=== PATIENT | female | born 1960 | race Caucasian/White ===

== ENCOUNTER → 2019-05-26 08:52 | Outpatient (BNVA) | payer MEDICARE, MEDICAID, SELFPAY | PROVIDERS: Family Provider Family Medicine; PCP Family Medicine; Visit Provider Family Medicine | DX: E03.9 Hypothyroidism, unspecified (principal); Z13.6 Encounter for screening for cardiovascular disorders; H81.13 Benign paroxysmal vertigo, bilateral | CPT/HCPCS: 36415; 80053; 80061; 84443; 85025 ==

== ENCOUNTER → 2019-05-28 13:49 | Outpatient (BNVA) | payer MEDICARE, MEDICAID, SELFPAY | PROVIDERS: Family Provider Family Medicine; PCP Family Medicine; Visit Provider Anesthesiology | DX: G89.29 Other chronic pain (principal); M54.41 Lumbago with sciatica, right side; Z79.891 Long term (current) use of 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 | CPT/HCPCS: 99213; 99214 ==

== ENCOUNTER → 2019-07-17 12:55 | Outpatient (BNVA) | payer MEDICARE, MEDICAID, SELFPAY | PROVIDERS: Family Provider Family Medicine; PCP Family Medicine; Visit Provider Anesthesiology | DX: G89.29 Other chronic pain (principal); M54.41 Lumbago with sciatica, right side; M53.3 Sacrococcygeal disorders, not elsewhere classified; Z79.891 Long term (current) use of 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 | CPT/HCPCS: 99214 ==

== ENCOUNTER → 2019-07-21 15:42 | Outpatient (BNVA) | payer MEDICARE, MEDICAID, SELFPAY | PROVIDERS: Family Provider Family Medicine; PCP Family Medicine; Visit Provider Nurse Practitioner Psychiatric/Mental Health | DX: F31.75 Bipolar disorder, in partial remission, most recent episode depressed (principal); F60.3 Borderline personality disorder | CPT/HCPCS: 99214 ==

== ENCOUNTER 2019-07-29 13:35 | Outpatient (CLI) | payer MEDICARE, MEDICAID, SELFPAY ==
--- NOTE | 2019-07-29 13:51 | XR_ITS ---
WS: [id number] KNEE LEFT TECHNIQUE: 3 views of the left knee CLINICAL INFORMATION: knee pain COMPARISON: None. FINDINGS: Left knee is normal in appearance. No evidence of acute fracture dislocation. No significant effusion . Patella is normal. Mild soft tissue edema. XR/XR knee LT 3V* [id number] IMPRESSION: Mild soft tissue edema. Otherwise normal left knee.
--- NOTE | 2019-07-29 13:51 | XR_ITS ---
WS: [id number] KNEE RIGHT TECHNIQUE: 3 views of the right knee CLINICAL INFORMATION: knee pain COMPARISON: None. FINDINGS: Right knee is normal in appearance. No evidence of acute fracture dislocation. No significant effusio n. Patella is normal. XR/XR knee RT 3V* [id number] IMPRESSION: Normal right knee.
== END 2019-07-29 13:36 | disposition home or self-care (01) ==
LOC: RADWPI 13:39
PROVIDERS: Family Provider Family Medicine; PCP Family Medicine; Visit Provider Family Medicine
DX: M25.561 Pain in right knee (principal); M25.562 Pain in left knee; G89.29 Other chronic pain
CPT/HCPCS: 73562

== ENCOUNTER → 2019-10-02 14:20 | Outpatient (BNVA) | payer MEDICARE, MEDICAID, SELFPAY | PROVIDERS: Family Provider Family Medicine; PCP Family Medicine; Visit Provider Family Medicine | DX: K91.2 Postsurgical malabsorption, not elsewhere classified (principal) | CPT/HCPCS: 80053; 82306; 82607; 82728; 82746; 83735; 85025 ==

== ENCOUNTER → 2019-11-28 08:44 | Outpatient (BNVA) | payer MEDICARE, MEDICAID, SELFPAY | PROVIDERS: Family Provider Family Medicine; PCP Family Medicine; Visit Provider Anesthesiology | DX: G89.29 Other chronic pain (principal); M54.41 Lumbago with sciatica, right side; M54.42 Lumbago with sciatica, left side; M54.9 Dorsalgia, unspecified; M53.3 Sacrococcygeal disorders, not elsewhere classified; M25.561 Pain in right knee; M25.562 Pain in left knee; Z79.891 Long term (current) use of 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 | CPT/HCPCS: 99214 ==

== ENCOUNTER → 2019-12-09 07:47 | Outpatient (BNVA) | payer MEDICARE, MEDICAID, SELFPAY | PROVIDERS: Family Provider Family Medicine; PCP Family Medicine; Visit Provider Nurse Practitioner Psychiatric/Mental Health | DX: F31.75 Bipolar disorder, in partial remission, most recent episode depressed (principal); F60.3 Borderline personality disorder; F33.1 Major depressive disorder, recurrent, moderate | CPT/HCPCS: 99214 ==

== ENCOUNTER 2020-01-13 12:47 | Outpatient (CLI) | payer MEDICARE, MEDICAID, SELFPAY ==
--- NOTE | 2020-01-13 13:00 | XR_ITS ---
WS: [id number] RIGHT WRIST: 3 VIEW(S) TECHNIQUE: PA, oblique and lateral. HISTORY: right wrist pain COMPARISON: 07/01/2018 No acute fracture or dislocation. Very mild widening of the scapholunate interval. No joint space abnormality. No soft tissue swelling. XR/XR wrist RT min 3V* [id number] IMPRESSION: Minimal widening of the scapholunate interval but less than 4 mm.
== END 2020-01-13 12:48 | disposition home or self-care (01) ==
LOC: RADWPI 12:54
PROVIDERS: Family Provider Family Medicine; PCP Family Medicine; Visit Provider Family Medicine
DX: M25.531 Pain in right wrist (principal)
CPT/HCPCS: 73110

== ENCOUNTER → 2020-01-19 11:03 | Outpatient (BNVA) | payer MEDICARE, MEDICAID, SELFPAY | PROVIDERS: Family Provider Family Medicine; PCP Family Medicine; Visit Provider Family Medicine | DX: E03.9 Hypothyroidism, unspecified (principal); M25.531 Pain in right wrist; M25.532 Pain in left wrist; Z68.34 Body mass index [BMI] 34.0-34.9, adult; F17.211 Nicotine dependence, cigarettes, in remission | CPT/HCPCS: 84443 ==

== ENCOUNTER → 2020-01-29 07:58 | Outpatient (BNVA) | payer MEDICARE, MEDICAID, SELFPAY | PROVIDERS: Family Provider Family Medicine; PCP Family Medicine; Visit Provider Nurse Practitioner Psychiatric/Mental Health | DX: F31.75 Bipolar disorder, in partial remission, most recent episode depressed (principal); Z63.4 Disappearance and death of family member; F60.3 Borderline personality disorder | CPT/HCPCS: 99214 ==

== ENCOUNTER 2020-02-03 14:29 | Outpatient (RCR) | payer MEDICARE, MEDICAID, SELFPAY | END 2020-02-18 23:59 | disposition home or self-care (01) | LOC: SPT 14:29 | PROVIDERS: PCP Family Medicine; Referring Provider Family Medicine; Visit Provider Family Medicine | DX: G89.29 Other chronic pain (principal); M54.41 Lumbago with sciatica, right side; M54.9 Dorsalgia, unspecified; M53.3 Sacrococcygeal disorders, not elsewhere classified; Z79.891 Long term (current) use of 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 | CPT/HCPCS: 97161; 99213; 99214 ==

== ENCOUNTER → 2020-02-26 08:38 | Outpatient (BNVA) | payer MEDICARE, MEDICAID, SELFPAY | PROVIDERS: Family Provider Family Medicine; PCP Family Medicine; Visit Provider Nurse Practitioner Psychiatric/Mental Health | DX: F31.75 Bipolar disorder, in partial remission, most recent episode depressed (principal); Z63.4 Disappearance and death of family member; F60.3 Borderline personality disorder | CPT/HCPCS: 99214 ==

== ENCOUNTER → 2020-03-25 10:30 | Outpatient (BNVA) | payer MEDICARE, MEDICAID, SELFPAY | PROVIDERS: Family Provider Family Medicine; PCP Family Medicine; Visit Provider Nurse Practitioner Psychiatric/Mental Health | DX: Z79.899 Other long term (current) drug therapy (principal) | CPT/HCPCS: 80053; 80061; 82306; 83036 ==

== ENCOUNTER → 2020-03-26 08:14 | Outpatient (BNVA) | payer MEDICARE, MEDICAID, SELFPAY | PROVIDERS: Family Provider Family Medicine; PCP Family Medicine; Visit Provider Nurse Practitioner Psychiatric/Mental Health | DX: F31.75 Bipolar disorder, in partial remission, most recent episode depressed (principal); Z63.4 Disappearance and death of family member; F60.3 Borderline personality disorder | CPT/HCPCS: 99214 ==

== ENCOUNTER → 2020-03-30 08:48 | Outpatient (BNVA) | payer MEDICARE, MEDICAID, SELFPAY | PROVIDERS: Family Provider Family Medicine; PCP Family Medicine; Visit Provider Anesthesiology | DX: G89.29 Other chronic pain (principal); M54.41 Lumbago with sciatica, right side; M54.9 Dorsalgia, unspecified; Z79.891 Long term (current) use of 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 | CPT/HCPCS: 99213; 99214 ==

== ENCOUNTER → 2020-03-31 13:15 | Outpatient (BNVA) | payer MEDICARE, MEDICAID, SELFPAY | PROVIDERS: Family Provider Family Medicine; PCP Family Medicine; Visit Provider Family Medicine | DX: R30.0 Dysuria (principal) | CPT/HCPCS: 81000; 87077; 87086; 87184 ==

== ENCOUNTER → 2020-04-05 08:41 | Outpatient (BNVA) | payer MEDICARE, MEDICAID, SELFPAY | PROVIDERS: Family Provider Family Medicine; PCP Family Medicine; Referring Provider Family Medicine; Visit Provider Podiatrist Foot & Ankle Surgery | DX: M19.072 Primary osteoarthritis, left ankle and foot (principal); M19.071 Primary osteoarthritis, right ankle and foot; M77.8 Other enthesopathies, not elsewhere classified; M21.612 Bunion of left foot; M21.611 Bunion of right foot; M79.672 Pain in left foot; M79.671 Pain in right foot | CPT/HCPCS: 73630 ==

== ENCOUNTER 2020-04-28 15:02 | Emergency (ER) | payer MEDICARE, MEDICAID, SELFPAY ==
[2020-04-28 15:30] VITALS: BP 142/87; PULSE 91; RESP 16; TEMP 36.4; O2SAT 96; BMI 34.3
--- NOTE | 2020-04-28 15:38 | ED_ITS ---
HPI - Extremity Problem General: Chief complaint: Extremity Problem,Nontraumatic Stated complaint: SUSPECTS BLOOD CLOT Time Seen by Provider: 04/28/20 15:37 History of Present Illness: HPI Narrative: Patient presents with concerns for DVT. She has had a DVT in her leg in the past requiring anticoagulation, but does not currently take anticoagulation. She complains of an itchy, red area of the left brothers as well as a 3 cm circular area of ecchymosis on the right calf. No other 1 is particularly painful, but she states that her prior DVT started out with itchiness. She denies recent travel, trauma, surgery, hospitalization. She does not know whether she has factor V Leiden or protein C or S deficiency. She denies pain in the legs, interval increase in calf diameter, pain with walking, and has no other acute complaints. Review of Systems General: Reports: 10 or more systems reviewed and unremarkable except in HPI and below PFSH ED PFSH: Medical History (Updated 04/28/20 @ 15:56 by Wade Medley MD) Atrophic vaginitis Bereavement Loss of parents Bilateral low back pain with right-sided sciatica Bipolar disorder Bipolar disorder, in partial remission, most recent episode depressed Carpal tunnel syndrome, bilateral Chronic back pain Chronic sacroiliac pain Encounter for long-term use of 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 Genital herpes in women GERD (gastroesophageal reflux disease) Hypothyroidism Mixed incontinence Recurrent UTI Surgical History Bariatric surgery status H/O LEEP S/P dilatation and curettage age of 19 in [place] S/P gastric bypass [facility]. [id number] S/P hysterectomy Dr. Underwood-1997 ovaries remain Family History Father Diabetes Stroke Grandmother Cancer breast-ovarian Brother Diabetes Hypertension Mother Thyroid disease Social History (Updated 04/28/20 @ 15:36 by Emeterio Siegel RN) Smoking and tobacco status: former smoker Second hand smoke exposure: No Alcohol intake: current Alcohol intake frequency: holidays/special occasions only Substance/Drug Use: never Marital status: History of recent travel: No Physical Exam Const: COMMON NORMALS: no acute distress Extremity: OTHER: Bedside ultrasound was performed of bilateral legs. The left brothers is mildly erythematous, but it is not warm or tender. Ultrasound does not show cobblestoning indicative of cellulitis nor does it show any noncompressible veins. Bedside ultrasound of the right calf similarly shows no evidence of DVT. All veins are compressible with no increase in pain. EXTREMITY IMAGE (BACK): 1. 2 cm diameter area of ecchymosis with no underlying redness or tenderness. Course Vital Signs: Vital signs: Vital Signs Temperature 97.5 F L 04/28/20 15:30 Pulse Rate 83 04/28/20 15:55 Respiratory Rate 16 04/28/20 15:55 Blood Pressure 132/78 04/28/20 15:55 Pulse Oximetry 93 04/28/20 15:55 MDM - Extremity (Nontraumatic) MDM Narrative: Medical decision making narrative: Patient remained hemodynamically stable throughout ED course. She is here because she is concerned about having DVTs. Bedside ultrasound shows no evidence of DVT and physical exam is not consistent with it either. She will be discharged home in stable condition with follow-up to primary care as needed. She knows she is welcome back in the emergency department should her symptoms get worse before outpatient follow-up. Discharge Plan Discharge Patient Disposition: Home Clinical Impression: Traumatic ecchymosis of right lower leg Qualifiers: Encounter type: initial encounter Qualified Code(s): S80.11XA - Contusion of right lower leg, initial encounter Condition: Stable Prescriptions: No Action hydrocodone-acetaminophen 5-325 mg tablet 1 tab PO QID PRN (Reason: pain) 30 Days Qty: 110 RF: 0 hydrocodone-acetaminophen 5-325 mg tablet 1 tab PO QID PRN (Reason: pain) 30 Days Qty: 110 RF: 0 carisoprodol [Soma] 350 mg tablet 350 mg PO TID PRN (Reason: muscle pain) 30 Days Qty: 90 RF: 0 cyclobenzaprine 10 mg tablet 10 mg PO TID 30 Days Qty: 90 RF: 1 (DME) Sole Supports See Rx Instructions .ROUTE .MEDSUPPLY Qty: 1 RF: 0 triamcinolone acetonide [Kenalog] 40 mg/mL suspension 40 mg INTRA-MONAE ONCE Qty: 1 RF: 0 bupivacaine (PF) 0.25 % (2.5 mg/mL) solution 10 ml Infiltration ONCE Qty: 10 RF: 0 lidocaine (PF) 10 mg/mL (1 %) solution 10 mg SUBCUT ONCE Qty: 10 RF: 0 lithium carbonate 300 mg capsule 300 mg PO BID Qty: 60 RF: 3 lamotrigine [Lamictal] 200 mg tablet 200 mg PO DAILY Qty: 30 RF: 4 sertraline [Zoloft] 100 mg tablet 100 mg PO .morning Qty: 30 RF: 4 trazodone 100 mg tablet 200 mg PO .QHS PRN (Reason: sleep) Qty: 60 RF: 4 ziprasidone HCl [Geodon] 20 mg capsule 20 mg PO BID Qty: 60 RF: 3 pantoprazole 40 mg tablet,delayed release (DR/EC) 40 mg PO ONCE Qty: 90 RF: 1 ciprofloxacin HCl 250 mg tablet 250 mg PO BID Qty: 10 RF: 0 levothyroxine [Synthroid] 25 mcg tablet 25 mcg PO ONCE Qty: 90 RF: 1 cholecalciferol (vitamin D3) 1,250 mcg (50,000 unit) capsule 50,000 unit PO .once weekly Qty: 12 RF: 0 azelastine 137 mcg (0.1 %) aerosol,spray 1 spray intranasal BID Qty: 30 RF: 1 acyclovir 400 mg tablet 400 mg PO BID Qty: 28 RF: 0 Discharge Orders: Discharge ED (Routine); Ordered 04/28/20 Ordered By: Wade Medley Referrals: Jennifer Winston DO [Primary Care Provider] - 7-10 days (as needed) Discharge Diet: Usual diet Discharge Activity: Resume usual activity Activity Restrictions/Additional Instructions: Ultrasound of your legs did not show evidence of DVT. The bruise on your right calf appears to be isolated. The rash on your left brothers should go away with time it does not appear to be infectious. Coding Level of Care Code ED Locomotive Engineer Electric for Shaka Fwmarcelino Exam Problem Focused
[2020-04-28 15:55] VITALS: BP 132/78; PULSE 83; RESP 16; O2SAT 93
[2020-04-28 16:39] VITALS: BP 143/90; PULSE 90; RESP 18; TEMP 36.6; O2SAT 96
== END 2020-04-28 16:40 | disposition home or self-care (01) ==
PROVIDERS: Emergency Provider Student in an Organized Health Care Education/Training Program; PCP Family Medicine
DX: S80.11XA Contusion of right lower leg, initial encounter (principal); Z87.891 Personal history of nicotine dependence; X58.XXXA Exposure to other specified factors, initial encounter
CPT/HCPCS: 12345; 99281

== ENCOUNTER 2020-05-22 00:52 | Emergency (ER) | payer MEDICARE, MEDICAID, SELFPAY ==
[2020-05-22 00:57] VITALS: BP 148/91; PULSE 82; RESP 18; TEMP 36.6; O2SAT 95; BMI 34.3
--- NOTE | 2020-05-22 01:05 | ED_ITS ---
HPI - Back Pain/Injury General: Chief Complaint: Back Pain/Injury Stated Complaint: muscle spasm from lower back up to neck Time Seen by Provider: 05/22/20 01:05 Source: patient Mode of arrival: ambulatory Limitations: no limitations History of Present Illness: HPI Narrative: Patient comes in tonight with right side low back pain radiating down to his thigh. Patient appears well. Patient appears no acute distress. Patient states that she woke up with the discomfort has persisted throughout the day even with her use of her home medication. Patient appears well. Patient appears in no acute distress. Patient denies any fever, loss of bowel or bladder control. Review of Systems General: Reports: 10 or more systems reviewed and unremarkable except in HPI and below Musc: Reports: back pain PFSH ED PFSH: Medical History (Updated 05/22/20 @ 01:11 by CEDRICK Knox) Atrophic vaginitis Bereavement Loss of parents Bilateral low back pain with right-sided sciatica Bipolar disorder Bipolar disorder, in partial remission, most recent episode depressed Carpal tunnel syndrome, bilateral Chronic back pain Chronic sacroiliac pain Encounter for long-term use of 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 Genital herpes in women GERD (gastroesophageal reflux disease) Hypothyroidism Mixed incontinence Recurrent UTI Surgical History Bariatric surgery status H/O LEEP S/P dilatation and curettage age of 19 in [place], [place] S/P gastric bypass [facility]. [id number] S/P hysterectomy Dr. Underwood-1997 ovaries remain Family History Father Diabetes Stroke Grandmother Cancer breast-ovarian Brother Diabetes Hypertension Mother Thyroid disease Social History (Updated 04/28/20 @ 15:36 by Emeterio Siegel RN) Smoking and tobacco status: former smoker Second hand smoke exposure: No Alcohol intake: current Alcohol intake frequency: holidays/special occasions only Marital status: History of recent travel: No Physical Exam Const: COMMON NORMALS: no acute distress and patient oriented x3 GENERAL APPEARANCE: cooperative HENMT: COMMON NORMALS: normocephalic and Normal external nose present HEAD & SCALP: normal to inspection and normocephalic NOSE: Normal external nose present MOUTH: Normal oral and palatal mucosa present Eye: GENERAL EYE: appearance normal, both eyes and all related structures Neck/C-Spine: COMMON NORMALS: full ROM Chest: COMMONS NORMALS: normal inspection of the chest Resp: COMMON NORMALS: normal respiratory effort EFFORT & INSPECTION: Yes able to speak in complete sentences Cardio: COMMON NORMALS: regular rate and regular rhythm RATE: regular rate RHYTHM: regular rhythm GI: COMMON NORMALS: non-tender Back/Pelvis: COMMON NORMALS: thoracic and lumbar spine normal to inspection (mild tenderness right side paraspinous muscle tenderness) and straight leg raise negative bilaterally Extremity: COMMON NORMALS: normal to inspection Neuro: COMMON NORMALS: patient oriented x3 and moves all extremities Psych: COMMON NORMALS: mental status grossly normal and cooperative Skin: COMMON NORMALS: no rashes or lesions noted GENERAL SKIN EXAM: no rashes or lesions noted Course Vital Signs: Vital signs: Vital Signs Temperature 97.8 F 05/22/20 00:57 Pulse Rate 82 05/22/20 00:57 Respiratory Rate 18 05/22/20 00:57 Blood Pressure 148/91 05/22/20 00:57 Pulse Oximetry 95 05/22/20 00:57 MDM - Back Pain/Injury MDM Narrative: Medical decision making narrative: Patient comes in today for complaints of right side lower back pain radiating down her leg on the right. Patient denies any bowel or bladder control loss. Patient denies any fever. Vital signs were normal. Reviewed exam with patient with recommendations for treatment and follow-up. Patient reported understanding agreed to plan. Differential Diagnosis: Differential diagnosis back pain/injury: Likely lumbar radiculopathy, sciatica, strain of lumbar region and thoracic back pain Discharge Plan Discharge Patient Disposition: Home Clinical Impression: Sciatica Qualifiers: Laterality: right Qualified Code(s): M54.31 - Sciatica, right side Condition: Stable Prescriptions: New cyclobenzaprine 10 mg tablet 10 mg PO TID PRN (Reason: muscle spasm) Qty: 15 RF: 0 No Action hydrocodone-acetaminophen 5-325 mg tablet 1 tab PO QID PRN (Reason: pain) 30 Days Qty: 110 RF: 0 hydrocodone-acetaminophen 5-325 mg tablet 1 tab PO QID PRN (Reason: pain) 30 Days Qty: 110 RF: 0 carisoprodol [Soma] 350 mg tablet 350 mg PO TID PRN (Reason: muscle pain) 30 Days Qty: 90 RF: 0 cyclobenzaprine 10 mg tablet 10 mg PO TID 30 Days Qty: 90 RF: 1 (DME) Sole Supports See Rx Instructions .ROUTE .MEDSUPPLY Qty: 1 RF: 0 triamcinolone acetonide [Kenalog] 40 mg/mL suspension 40 mg INTRA-MONAE ONCE Qty: 1 RF: 0 bupivacaine (PF) 0.25 % (2.5 mg/mL) solution 10 ml Infiltration ONCE Qty: 10 RF: 0 lidocaine (PF) 10 mg/mL (1 %) solution 10 mg SUBCUT ONCE Qty: 10 RF: 0 lithium carbonate 300 mg capsule 300 mg PO BID Qty: 60 RF: 3 lamotrigine [Lamictal] 200 mg tablet 200 mg PO DAILY Qty: 30 RF: 4 sertraline [Zoloft] 100 mg tablet 100 mg PO .morning Qty: 30 RF: 4 trazodone 100 mg tablet 200 mg PO .QHS PRN (Reason: sleep) Qty: 60 RF: 4 ziprasidone HCl [Geodon] 20 mg capsule 20 mg PO BID Qty: 60 RF: 3 pantoprazole 40 mg tablet,delayed release (DR/EC) 40 mg PO ONCE Qty: 90 RF: 1 ciprofloxacin HCl 250 mg tablet 250 mg PO BID Qty: 10 RF: 0 levothyroxine [Synthroid] 25 mcg tablet 25 mcg PO ONCE Qty: 90 RF: 1 cholecalciferol (vitamin D3) 1,250 mcg (50,000 unit) capsule 50,000 unit PO .once weekly Qty: 12 RF: 0 azelastine 137 mcg (0.1 %) aerosol,spray 1 spray intranasal BID Qty: 30 RF: 1 acyclovir 400 mg tablet 400 mg PO BID Qty: 28 RF: 0 Discharge Orders: Discharge ED (Routine); Ordered 05/22/20 Ordered By: Jonathan Prieto Referrals: Jennifer Winston DO [Primary Care Provider] - Discharge Diet: Usual diet Discharge Activity: Increase activity as tolerated Patient Instructions: Back Pain (ED) Activity Restrictions/Additional Instructions: Activity as tolerated. Gentle stretching and range of motion exercises. Drink plenty of water with medication. Follow-up with primary care for further treatment and evaluation. Return to the emergency room for new concerns. Coding Level of Care Code ED Teleprinter Installer for Teag Fwd Exam Comprehensive
--- NOTE | 2020-05-22 01:11 | PC.NURSE ---
Pt to vertical flow. Provider to see pt
[2020-05-22] MEDS: orphenadrine 30 mg/mL Inj 2 mL 60 MG IM (01:14)
[2020-05-22] MEDS: ketorolac 30 mg/mL INJ IM (01:14)
[2020-05-22 01:34] VITALS: BP 138/99; PULSE 86; RESP 18; O2SAT 95
== END 2020-05-22 01:35 | disposition home or self-care (01) ==
LOC: ER 01:25
PROVIDERS: Emergency Provider Nurse Practitioner Family; PCP Family Medicine
DX: M54.31 Sciatica, right side (principal); Z87.891 Personal history of nicotine dependence
CPT/HCPCS: 12345; 96372; 99281; 99283; J1885; J2360

== ENCOUNTER → 2020-05-26 08:40 | Outpatient (BNVA) | payer MEDICARE, MEDICAID, SELFPAY | PROVIDERS: PCP Family Medicine; Visit Provider Anesthesiology | DX: G89.29 Other chronic pain (principal); M54.41 Lumbago with sciatica, right side; M54.9 Dorsalgia, unspecified; Z79.891 Long term (current) use of 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 | CPT/HCPCS: 99213 ==

== ENCOUNTER → 2020-06-14 09:26 | Outpatient (BNVA) | payer MEDICARE, MEDICAID, SELFPAY | PROVIDERS: PCP Family Medicine; Visit Provider Nurse Practitioner Psychiatric/Mental Health | DX: F31.75 Bipolar disorder, in partial remission, most recent episode depressed (principal); Z63.4 Disappearance and death of family member; F60.3 Borderline personality disorder | CPT/HCPCS: 99214 ==

== ENCOUNTER 2020-06-29 15:45 | Outpatient (CLI) | payer MEDICARE, MEDICAID, SELFPAY | END 2020-06-29 15:46 | disposition home or self-care (01) | LOC: SPT 15:46 | PROVIDERS: PCP Family Medicine; Visit Provider Podiatrist Foot & Ankle Surgery | DX: Z46.89 Encounter for fitting and adjustment of other specified devices (principal); M25.561 Pain in right knee; M25.562 Pain in left knee; G89.29 Other chronic pain | CPT/HCPCS: L3030 ==

== ENCOUNTER → 2020-07-21 17:11 | Outpatient (BNVA) | payer MEDICARE, MEDICAID, SELFPAY | PROVIDERS: PCP Family Medicine; Visit Provider Family Medicine | DX: M25.561 Pain in right knee (principal); G89.29 Other chronic pain; E03.9 Hypothyroidism, unspecified; M25.562 Pain in left knee; H66.91 Otitis media, unspecified, right ear | CPT/HCPCS: 73562; 84443 ==

== ENCOUNTER → 2020-07-23 08:15 | Outpatient (BNVA) | payer MEDICARE, MEDICAID, SELFPAY | PROVIDERS: PCP Family Medicine; Visit Provider Anesthesiology | DX: G89.29 Other chronic pain (principal); M54.9 Dorsalgia, unspecified; M54.41 Lumbago with sciatica, right side; M25.561 Pain in right knee; M25.562 Pain in left knee; Z79.891 Long term (current) use of 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 | CPT/HCPCS: 99214 ==

== ENCOUNTER → 2020-08-12 09:49 | Outpatient (BNVA) | payer MEDICARE, MEDICAID, SELFPAY | PROVIDERS: PCP Family Medicine; Referring Provider Family Medicine; Visit Provider Orthopaedic Surgery | DX: M54.41 Lumbago with sciatica, right side (principal); M54.9 Dorsalgia, unspecified; G89.29 Other chronic pain | CPT/HCPCS: 72110 ==

== ENCOUNTER 2020-08-18 13:30 | Outpatient (CLI) | payer MEDICARE, MEDICAID, SELFPAY ==
--- NOTE | 2020-08-18 14:05 | MR_ITS ---
WS: [id number] MRI LUMBAR SPINE NONCONTRAST TECHNIQUE: Sagittal T1, T2 and STIR imaging. Axial T1 and T2 imaging. CLINICAL INFORMATION: LOW BACK PAIN COMPARISON: None. FINDINGS: Mild lumbar curve. No acute compression. No high-grade central canal stenosis. L1-L2: Normal. L2-L3: Mild annular bulging. Slight effacement of ventral thecal sac. Mild facet arthropathy. Mild bi lateral proximal foraminal narrowing. L3-L4: Mild annular bulging. Slight narrowing of the subarticular recess bilaterally. Mild right and no significant left foraminal narrowing. Small right proximal foraminal protrusion contacts the proxi mal exiting right L3 nerve root. Moderate facet arthropathy. L4-L5: Mild annular bulging with slight impingement traversing right greater than left L5 nerve roots in the subarticular recess. Recommend correlation for right L5 nerve root symptoms. Moderate facet a rthropathy. Eccentric disc bulging and osteophytic ridging results in mild bilateral foraminal narrow ing. L5-S1: Mild disc osteophytic ridging eccentric to the right. Mild right foraminal narrowing. Left for amen is patent. Spinal canal is patent. Mild facet arthropathy. Cervical and thoracic canal are patent on the shiatsu therapist imaging. MR/MR lumbar spine wo con* [id number] IMPRESSION: 1. Mild lumbar curve. No acute compression. No high-grade central canal stenos is. 2. Annular bulging L4-5 impinges the traversing right greater than left L5 ner ve roots in the subarticular recess bilaterally. Recommend correlation right L5 nerve root symptoms. 3. Small right proximal foraminal protrusion L3-4 contacts the proximal exitin g right L3 nerve root. Mild right L3-4 foraminal narrowing. 4. Mild bilateral L4-5 and right L5-S1 bony foraminal narrowing. 5. Moderate facet arthropathy L4-5.
== END 2020-08-18 13:31 | disposition home or self-care (01) ==
PROVIDERS: PCP Family Medicine; Visit Provider Anesthesiology
DX: M47.816 Spondylosis without myelopathy or radiculopathy, lumbar region (principal); M51.26 Other intervertebral disc displacement, lumbar region
CPT/HCPCS: 72148

== ENCOUNTER → 2020-09-22 08:04 | Outpatient (BNVA) | payer MEDICARE, MEDICAID, SELFPAY | PROVIDERS: PCP Family Medicine; Visit Provider Anesthesiology | DX: G89.29 Other chronic pain (principal); M54.41 Lumbago with sciatica, right side; M54.42 Lumbago with sciatica, left side; M43.16 Spondylolisthesis, lumbar region; M54.9 Dorsalgia, unspecified; M25.561 Pain in right knee; M25.562 Pain in left knee; Z79.891 Long term (current) use of 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 | CPT/HCPCS: 99214 ==

== ENCOUNTER 2020-09-23 15:29 | Outpatient (RCR) | payer MEDICARE, MEDICAID, SELFPAY | END 2020-10-18 23:59 | disposition home or self-care (01) | LOC: SPT 15:29 | PROVIDERS: PCP Family Medicine; Referring Provider Orthopaedic Surgery; Visit Provider Orthopaedic Surgery | DX: M43.10 Spondylolisthesis, site unspecified (principal); M17.0 Bilateral primary osteoarthritis of knee | CPT/HCPCS: 97110; 97162 ==

== ENCOUNTER 2020-10-05 13:43 | Outpatient (CLI) | payer MEDICARE, MEDICAID, SELFPAY ==
--- NOTE | 2020-10-05 13:54 | CT_ITS ---
WS: [id number] CT NECK WITH CONTRAST HISTORY: LOCALIZED SWELLING, MASS AND LUMP, NECK TECHNIQUE: Contiguous 5 mm axial images are performed through the neck with intravenous contrast. Sag ittal and coronal reformats are also submitted. All CT scans at [facility] use at least o ne of these dose optimization techniques: automated exposure control; mA and/or kV adjustment per pat ient size (includes targeted exams where dose is matched to clinical indication); or iterative recons truction. CONTRAST: CONTRAST: Omnipaque 300; 95 mL IV. DLP: 1121.48 mGycm COMPARISON: None available. Marker is placed over the RIGHT neck in the area interest. There is no underlying soft tissue mass or adenopathy. Sternocleidomastoid muscle and a prominent vein are present at this location. RIGHT level IIa lymph node is enlarged measuring 1.6 cm in short axis diameter. Indeterminate level I Ia lymph node on the LEFT measures 0.9 cm. No additional enlarged lymph nodes. There are additional c ervical chain lymph nodes which are subcentimeter. Subtle area of enhancement in the nasopharynx liam ures 6 mm. May be a small polyp. Otherwise the nasopharynx and oropharynx and hypopharynx are negativ e. Normal appearance of the vocal cords. Straightening of the normal cervical lordosis. Visualized portions of the skull base demonstrate no abnormalities. Orbits and globes are within norm al limits. No soft tissue masses. Visualized paranasal sinuses and mastoid air cells are normal. Lung apices are clear. CT/CT neck w con* [id number] IMPRESSION: 1. No abnormality noted along the RIGHT neck in the region of the palpable abn ormality. 2. Enlarged RIGHT level IIa lymph node and indeterminate lymph node on the LEF T at level IIa. PET/CT imaging may be necessary for further evaluation. 3. Subtle area of enhancement in the central nasopharynx measures 6 mm. Recomm end direct visualization.
[2020-10-05] MEDS: iohexol 300 mg/mL 100 mL Btl IV (14:36)
== END 2020-10-05 13:44 | disposition home or self-care (01) ==
PROVIDERS: PCP Family Medicine; Visit Provider Otolaryngology
DX: R22.1 Localized swelling, mass and lump, neck (principal)
CPT/HCPCS: 70491; Q9967

== ENCOUNTER → 2020-10-13 08:17 | Outpatient (BNVA) | payer MEDICARE, MEDICAID, SELFPAY | PROVIDERS: PCP Family Medicine; Visit Provider Nurse Practitioner Psychiatric/Mental Health | DX: F31.75 Bipolar disorder, in partial remission, most recent episode depressed (principal); F60.3 Borderline personality disorder; Z63.4 Disappearance and death of family member | CPT/HCPCS: 99214 ==

== ENCOUNTER 2020-10-27 14:58 | Outpatient (CLI) | payer MEDICARE, MEDICAID, SELFPAY ==
--- NOTE | 2020-10-27 | ECG_ITS ---
[facility] Test Date: 2020-10-27 Pat Name: Bobbi Fritz Department: Room: Gender: Female Environmental Director: : 1960 Requested By: Artie Arreola Order Number: [id number] Lynda MD: Estela Hess M.D. Measurements Intervals [place] Rate: 86 P: 23 VA: 133 QRS: -30 QRSD: 96 T: 16 QT: 337 QTc: 405 Interpretive Statements SINUS RHYTHM POSSIBLE LEFT ATRIAL ENLARGEMENT [-0.1mV P WAVE IN V1/V2] LOW QRS VOLTAGE IN PRECORDIAL LEADS [QRS DEFLECTION < 1.0 mV IN CHEST LEADS] POSSIBLE LEFT VENTRICULAR HYPERTROPHY POSSIBLE ANTERIOR MYOCARDIAL INFARCTION, PROBABLY OLD Compared to ECG 09/24/2015 06:29:53 Low QRS voltage now present Myocardial infarct finding now present Electronically Signed On 10-27-2020 16:31:42 CDT by Estela Hess M.D. [email or web address]
[2020-10-27 15:45] LABS: Basophils # 0.1 10^3/uL (0.0-0.1); Basophils % 1.3 %; Eosinophils # 0.1 10^3/uL (0.0-0.8); Eosinophils % 1.8 %; Hematocrit 39.8 % (37.0-47.0); Lymphocytes # 1.7 10^3/uL (0.8-4.8); Lymphocytes % 26.4 %; Mean Corpuscular HGB Conc 32.7 g/dL (30.0-36.0); Mean Corpuscular Hemoglobin 29.1 pg (28.0-34.0); Mean Corpuscular Volume 89.2 fL (81-99); Mean Platelet Volume 9.4 fL (7.4-10.4); Monocytes # 0.4 10^3/uL (0.2-0.9); Monocytes % 6.1 %; Neutrophils # 3.99 10^3/uL (1.8-7.7); Neutrophils % 63.9 %; Nucleated Red Blood Cells % 0 %; Platelet Count 317 10^3/cmm (130-400); Red Blood Count 4.46 10^6/uL (4.1-5.3); White Blood Count 6.2 10^3/uL (4.0-10.0)
[2020-10-27 15:59] LABS: Anion Gap 14.4 (5-19); Blood Urea Nitrogen 14 mg/dL (6-20); Calcium 8.7 mg/dL (8.5-10.5); Carbon Dioxide 26 mmol/L (22-29); Chloride 102 mmol/L (98-107); Glomerular Filtration Rate 73.7 mL/min (90-130); Glucose 89 mg/dL (65-115); Osmolality Calculated 286 mOsm/kg (285-295); Potassium 4.4 mmol/L (3.5-5.1); Sodium 138 mmol/L (136-145)
== END 2020-10-27 14:59 | disposition home or self-care (01) ==
LOC: RT 15:07
PROVIDERS: PCP Family Medicine; Visit Provider Specialist
DX: Z01.810 Encounter for preprocedural cardiovascular examination (principal); R22.1 Localized swelling, mass and lump, neck
CPT/HCPCS: 36415; 80048; 85025; 93005

== ENCOUNTER → 2020-11-02 09:22 | Outpatient (BNVA) | payer MEDICARE, MEDICAID, SELFPAY | PROVIDERS: PCP Family Medicine; Visit Provider Anesthesiology | DX: G89.29 Other chronic pain (principal); M54.41 Lumbago with sciatica, right side; M43.16 Spondylolisthesis, lumbar region; M54.9 Dorsalgia, unspecified; M25.561 Pain in right knee; M25.562 Pain in left knee; Z79.891 Long term (current) use of 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; Z87.891 Personal history of nicotine dependence | CPT/HCPCS: 99214 ==

== ENCOUNTER 2020-11-03 10:45 | Outpatient (CLI) | payer MEDICARE, MEDICAID, SELFPAY ==
[2020-11-08 11:01] LABS: Miscellaneous Test See Scanned Lab Rpt
== END 2020-11-03 10:46 | disposition home or self-care (01) ==
PROVIDERS: PCP Family Medicine; Visit Provider Specialist
DX: R22.1 Localized swelling, mass and lump, neck (principal)
CPT/HCPCS: 88271; 88275; 88305

== ENCOUNTER → 2020-11-12 07:43 | Outpatient (BNVA) | payer MEDICARE, MEDICAID, SELFPAY | PROVIDERS: PCP Family Medicine; Visit Provider Nurse Practitioner Psychiatric/Mental Health | DX: F31.75 Bipolar disorder, in partial remission, most recent episode depressed (principal); Z63.4 Disappearance and death of family member; F60.3 Borderline personality disorder; Z79.899 Other long term (current) drug therapy | CPT/HCPCS: 99214 ==

== ENCOUNTER → 2020-12-21 16:21 | Outpatient (BNVA) | payer MEDICARE, MEDICAID, SELFPAY | PROVIDERS: PCP Family Medicine; Visit Provider Nurse Practitioner Family | DX: Z20.822 Contact with and (suspected) exposure to COVID-19 (principal) | CPT/HCPCS: 87635 ==

== ENCOUNTER → 2020-12-22 10:01 | Outpatient (BNVA) | payer MEDICARE, MEDICAID, SELFPAY | PROVIDERS: PCP Family Medicine; Visit Provider Anesthesiology | DX: G89.29 Other chronic pain (principal); M54.41 Lumbago with sciatica, right side; M43.16 Spondylolisthesis, lumbar region; M25.561 Pain in right knee; M25.562 Pain in left knee; Z79.891 Long term (current) use of 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 | CPT/HCPCS: 99214 ==

== ENCOUNTER 2021-01-20 22:31 | Emergency (ER) | payer MEDICARE, MEDICAID, SELFPAY ==
[2021-01-20 22:37] VITALS: BP 139/93; PULSE 93; RESP 18; TEMP 36.7; O2SAT 94; BMI 34.3
[2021-01-20 22:42] VITALS: BP 153/100; O2SAT 95
--- NOTE | 2021-01-20 22:47 | CTR_ITS ---
PROCEDURE INFORMATION: Exam: CT Head Without Contrast Exam date and time: 01/20/2021 10:47 PM Age: 61 years old Clinical indication: Pain; Headache; Migraine; Additional info: MCHUGH TECHNIQUE: Imaging protocol: Computed tomography of the head without contrast. Radiation optimization: All CT scans at this facility use at least one of these dose optimization techniques: automated exposure control; mA and/or kV adjustment per patient size (includes targeted exams where dose is matched to clinical indication); or iterative reconstruction. COMPARISON: CT neck w con* [id number] 2020-10-05 14:33 RADIATION DOSE METRICS: Total DLP (mGy-cm): 718.43 FINDINGS: Brain: Normal. No hemorrhage. Unremarkable white matter. No mass effect. Cerebral ventricles: No ventriculomegaly. Paranasal sinuses: Visualized sinuses are unremarkable. No fluid levels. Mastoid air cells: Visualized mastoid air cells are well aerated. Bones/joints: Unremarkable. No acute fracture. Soft tissues: Unremarkable. CT/CT head wo con* [id number] IMPRESSION: No acute intracranial abnormality. Radiation Dose CTDIVOL = (mGy): DLP = 718.43 (mGy-cm)
--- NOTE | 2021-01-20 22:48 | ED_ITS ---
HPI - Headache General: Chief Complaint: Headache Stated Complaint: Migrane Time Seen by Provider: 01/20/21 22:43 Source: patient Mode of arrival: ambulatory Limitations: no limitations History of Present Illness: HPI Narrative: 61-year-old female states that she had a headache that started yesterday. States she woke up with it yesterday and its gradually worsened. States headaches now an 8 out of 10. States she had migraines years and years ago but has not had one recently. States this does feel like her previous migraines that she has photophobia and phonophobia. She has nausea as well. She denies any fever denies any neck pain. Denies any radiation of her pain. Denies any change in vision. Associated symptoms: Deny chest pain, fever(s), nausea, rash or vomiting Review of Systems Const: Denies: fever(s), chills, body aches or change in appetite Eyes: Denies: blurry vision or eye discomfort ENMT: Denies: throat pain or dental pain Card: Denies: chest pain Resp: Denies: dyspnea GI: Denies: abdominal pain, nausea, vomiting or diarrhea : Denies: dysuria Musc: Denies: neck pain or back pain Skin/Breast: Denies: rash Neuro: Reports: headache(s) Psych: Denies: depression Juancarlos/Lymph: Denies: easy bruising All/Imm: Denies: urticaria PFSH ED PFSH: Medical History Atrophic vaginitis Bereavement Loss of parents Bilateral low back pain with right-sided sciatica Bipolar disorder Bipolar disorder, in partial remission, most recent episode depressed Carpal tunnel syndrome, bilateral Chronic back pain Chronic sacroiliac pain Encounter for long-term use of 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 Genital herpes in women GERD (gastroesophageal reflux disease) Hypothyroidism Mixed incontinence Recurrent UTI Surgical History Bariatric surgery status H/O LEEP S/P dilatation and curettage age of 19 in [place] S/P gastric bypass [facility]. [id number] S/P hysterectomy Dr. Underwood-1997 ovaries remain Family History Father Diabetes Stroke Grandmother Cancer breast-ovarian Brother Diabetes Hypertension Mother Thyroid disease Social History Smoking and tobacco status: former smoker Second hand smoke exposure: No Alcohol intake: current Alcohol intake frequency: holidays/special occasions only Marital status: History of recent travel: No Physical Exam Const: COMMON NORMALS: no acute distress, patient oriented x3 and healthy appearing HENMT: COMMON NORMALS: normocephalic and atraumatic HEAD & SCALP: normocephalic and atraumatic Eye: COMMON NORMALS: Equal, round and reactive pupils present and EOMs intact bilaterally PUPIL: Yes Equal, round and reactive pupils present Neck/C-Spine: COMMON NORMALS: full ROM and supple Chest: COMMONS NORMALS: normal inspection of the chest and normal palpation of entire chest wall Resp: COMMON NORMALS: normal respiratory effort, No retractions, No use of accessory muscles and clear to auscultation bilaterally AUSCULTATION: clear to auscultation bilaterally Cardio: COMMON NORMALS: regular rate, regular rhythm and No murmurs present (Cardio) RATE: regular rate RHYTHM: regular rhythm GI: COMMON NORMALS: Normal to inspection, nondistended, normoactive bowel sounds present, Soft to palpation, non-tender and no masses PALPATION: Yes Soft to palpation Extremity: COMMON NORMALS: normal to inspection and full ROM Neuro: COMMON NORMALS: patient oriented x3, moves all extremities and no focal motor deficits Psych: COMMON NORMALS: mental status grossly normal, Normal thought process present and cooperative THOUGHT PROCESS: Normal thought process present Skin: COMMON NORMALS: no rashes or lesions noted and no wounds GENERAL SKIN EXAM: no rashes or lesions noted Course Vital Signs: Vital signs: Vital Signs Temperature 98.0 F 01/20/21 22:37 Pulse Rate 93 01/20/21 22:37 Respiratory Rate 18 01/20/21 22:37 Blood Pressure 139/93 01/20/21 22:37 Pulse Oximetry 94 01/20/21 22:37 MDM - Headache MDM Narrative: Medical decision making narrative: Patient presents with a headache is likely migraine headache. Headaches completely resolved after Reglan and Benadryl. Head CT shows no abnormalities. She has no signs of subarachnoid hemorrhage or meningitis. She is stable for discharge and is to follow-up with PCP and return if worsening. Discharge Plan Discharge Patient Disposition: Home Clinical Impression: Headache Condition: Stable Prescriptions: No Action (DME) Sole Supports See Rx Instructions .ROUTE .MEDSUPPLY Qty: 1 RF: 0 Claritin-D 12 Hour 5-120 mg tablet extended release 12 hr 1 tab PO Q12H PRN (Reason: allergy symptoms) Qty: 30 RF: 0 levothyroxine [Synthroid] 25 mcg tablet 25 mcg PO ONCE Qty: 90 RF: 1 pantoprazole 40 mg tablet,delayed release (DR/EC) 40 mg PO ONCE Qty: 90 RF: 1 ziprasidone HCl [Geodon] 20 mg capsule 20 mg PO BID Qty: 60 RF: 4 trazodone 100 mg tablet 200 mg PO .QHS PRN (Reason: sleep) Qty: 60 RF: 4 sertraline [Zoloft] 100 mg tablet 100 mg PO .morning Qty: 30 RF: 4 lamotrigine [Lamictal] 200 mg tablet 200 mg PO DAILY Qty: 30 RF: 4 hydrocodone-acetaminophen 5-325 mg tablet 1 tab PO QID PRN (Reason: pain) 30 Days Qty: 110 RF: 0 hydrocodone-acetaminophen 5-325 mg tablet 1 tab PO QID PRN (Reason: pain) 30 Days Qty: 110 RF: 0 cyclobenzaprine 10 mg tablet 10 mg PO TID 30 Days Qty: 90 RF: 0 lithium carbonate 300 mg capsule 300 mg PO BID Qty: 60 RF: 4 cholecalciferol (vitamin D3) 1,250 mcg (50,000 unit) capsule 50,000 unit PO .once weekly Qty: 12 RF: 0 azelastine 137 mcg (0.1 %) aerosol,spray 1 spray intranasal BID Qty: 30 RF: 1 Discharge Orders: Discharge ED (Routine); Ordered 01/21/21 Ordered By: Jane Broussard Referrals: Marnie Cardenas MD [Primary Care Provider] - 1-3 days Discharge Diet: Advance as tolerated Discharge Activity: Resume usual activity Patient Instructions: Acute Headache (ED) Coding Level of Care Code ED Director Of Employee Development for Chg Fwd Exam Comprehensive
[2021-01-20] MEDS: ketorolac 30 mg/mL INJ 15 MG IVP (23:00)
[2021-01-20] MEDS: diphenhydrAMINE 50 mg/mL SDV 1mL IVP (23:10)
[2021-01-20] MEDS: metoclopramide 5 mg/mL SDV 2 mL 10 MG IVP (23:12)
[2021-01-21] VITALS: BP 126/93; O2SAT 95
[2021-01-21 00:42] VITALS: BP 123/85; PULSE 84; RESP 18; O2SAT 97
[2021-01-21 00:47] VITALS: BP 123/85; RESP 18; O2SAT 97
== END 2021-01-21 00:40 | disposition home or self-care (01) ==
PROVIDERS: Emergency Provider Emergency Medicine; PCP Family Medicine
DX: R51.9 Headache, unspecified (principal); Z87.891 Personal history of nicotine dependence
CPT/HCPCS: 70450; 96374; 96375; 99283; J1200; J1885; J2765

== ENCOUNTER → 2021-02-01 07:32 | Outpatient (BNVA) | payer MEDICARE, MEDICAID, SELFPAY | PROVIDERS: PCP Family Medicine; Visit Provider Nurse Practitioner Psychiatric/Mental Health | DX: F31.75 Bipolar disorder, in partial remission, most recent episode depressed (principal); Z63.4 Disappearance and death of family member; F60.3 Borderline personality disorder; Z79.899 Other long term (current) drug therapy | CPT/HCPCS: 99214 ==

== ENCOUNTER → 2021-03-01 10:05 | Outpatient (BNVA) | payer MEDICARE, MEDICAID, SELFPAY | PROVIDERS: PCP Family Medicine; Visit Provider Anesthesiology | DX: G89.29 Other chronic pain (principal); M54.41 Lumbago with sciatica, right side; M43.16 Spondylolisthesis, lumbar region; M25.561 Pain in right knee; M25.562 Pain in left knee; Z79.891 Long term (current) use of 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 | CPT/HCPCS: 99213; 99214 ==

== ENCOUNTER → 2021-05-17 14:12 | Outpatient (BNVA) | payer MEDICARE, MEDICAID, SELFPAY | PROVIDERS: PCP Family Medicine; Visit Provider Nurse Practitioner Psychiatric/Mental Health | DX: Z79.899 Other long term (current) drug therapy (principal) | CPT/HCPCS: 80053; 80061; 80178; 83036 ==

== ENCOUNTER → 2021-06-15 09:51 | Outpatient (BNVA) | payer MEDICARE, MEDICAID, SELFPAY | PROVIDERS: PCP Family Medicine; Visit Provider Anesthesiology | DX: G89.29 Other chronic pain (principal); M25.561 Pain in right knee; M25.562 Pain in left knee; Z79.891 Long term (current) use of 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 | CPT/HCPCS: 99214 ==

== ENCOUNTER → 2021-06-20 11:28 | Outpatient (BNVA) | payer MEDICARE, MEDICAID, SELFPAY | PROVIDERS: PCP Family Medicine; Visit Provider Nurse Practitioner Family | DX: Z20.822 Contact with and (suspected) exposure to COVID-19 (principal); Z71.89 Other specified counseling | CPT/HCPCS: 87635 ==

== ENCOUNTER → 2021-06-30 15:31 | Outpatient (BNVA) | payer MEDICARE, MEDICAID, SELFPAY | PROVIDERS: PCP Family Medicine; Visit Provider Nurse Practitioner Psychiatric/Mental Health | DX: F31.75 Bipolar disorder, in partial remission, most recent episode depressed (principal); F60.3 Borderline personality disorder; Z63.4 Disappearance and death of family member | CPT/HCPCS: 84443; 99214 ==

== ENCOUNTER 2021-07-03 02:11 | Emergency (ER) | payer MEDICARE, MEDICAID, SELFPAY ==
[2021-07-03 02:29] VITALS: BP 152/98; PULSE 88; RESP 18; TEMP 36.6; O2SAT 95; BMI 34.3
--- NOTE | 2021-07-03 02:34 | W.ED.HA ---
Documented by User: CEDRICK Knox 07/04/21 18:42 HPI - Headache General: Chief Complaint: Headache Stated Complaint: migraine Time Seen by Provider: 07/03/21 02:34 History of Present Illness: 61-year-old female comes in today with complaints of headache starting at around 4:00 this afternoon. Patient has tried some Tylenol and ibuprofen at home with no relief. Patient reports that she has had recurrent headaches since having her Pfizer Covid vaccine. Patient does have chronic pain syndromes regarding her back and recurrent headaches. Patient also has a history of GERD, sinusitis, bipolar disorder, and hypothyroidism. Patient appears well. Patient reports no weakness or any significant differences from her prior headaches. Patient appears to be in mild to moderate pain. MD elicited complaint: migraine Pertinent past history: migraines Onset (ago): hour(s) Time: 16:00 Onset description: gradually Location: frontal Severity: moderate Quality & Timing: aching and dull Exacerbating factors: exertion and light Relieving factors: nothing Associated symptoms: Reports nausea; Deny fever(s) or malaise Review of Systems General: Reports: 10 or more systems reviewed and unremarkable except in HPI and below Const: Denies: fever(s) or malaise GI: Reports: nausea Neuro: Reports: headache(s) PFSH ED PFSH: Medical History Atrophic vaginitis Bereavement Loss of parents Bilateral low back pain with right-sided sciatica Bipolar disorder Bipolar disorder, in partial remission, most recent episode depressed Carpal tunnel syndrome, bilateral Chronic back pain Chronic sacroiliac pain Encounter for long-term use of 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 Genital herpes in women GERD (gastroesophageal reflux disease) Hypothyroidism Mixed incontinence Psychiatric care Recurrent UTI Surgical History Bariatric surgery status H/O LEEP S/P dilatation and curettage age of 19 in [place], [place] S/P gastric bypass [facility]. [id number] S/P hysterectomy Dr. Underwood-1997 ovaries remain Family History Father Diabetes Stroke Grandmother Cancer breast-ovarian Brother Diabetes Hypertension Mother Thyroid disease Social History Smoking and tobacco status: former smoker Second hand smoke exposure: No Alcohol intake: never Marital status: History of recent travel: No Physical Exam Const: COMMON NORMALS: alert HENMT: COMMON NORMALS: atraumatic HEAD & SCALP: atraumatic NOSE: Normal nares present Eye: COMMON NORMALS: EOMs intact bilaterally and conjunctivae normal CONJUNCTIVA: Yes conjunctivae normal Neck/C-Spine: COMMON NORMALS: full ROM and no meningeal signs Resp: COMMON NORMALS: normal respiratory effort and clear to auscultation bilaterally AUSCULTATION: clear to auscultation bilaterally Cardio: COMMON NORMALS: regular rate and regular rhythm RATE: regular rate RHYTHM: regular rhythm Extremity: COMMON NORMALS: normal to inspection Neuro: SENSORIUM/ORIENTATION: Yes alert MENINGEAL SIGNS: Yes no meningeal signs GAIT: Yes Normal gait present Psych: COMMON NORMALS: cooperative Skin: COMMON NORMALS: no rashes or lesions noted GENERAL SKIN EXAM: no rashes or lesions noted Course Vital Signs: Vital signs: Vital Signs Temperature 97.9 F 07/03/21 02:29 Pulse Rate 88 07/03/21 02:29 Respiratory Rate 18 07/03/21 02:29 Blood Pressure 152/98 07/03/21 02:29 Pulse Oximetry 95 07/03/21 02:29 MDM - Headache Medical Decision Making 61-year-old female comes in today with complaints of frontal headache. On exam patient appears well. Patient has some tenderness in the frontal and maxillary sinus area. Conjunctiva is normal. Naris are normal. Respirations are even lungs are clear to auscultation. Patient reports that this is similar to her previous headaches. No meningeal signs are noted. Vital signs are normal except for some mild elevation of blood pressure with a systolic reading of 152. Differential diagnosis includes sinusitis, headache, migraine headache. Believe patient probably has an acute headache we will treat with migraine cocktail ketorolac 15 mg, Reglan 10 mg, diphenhydramine 25 mg, and 8 mg of dexamethasone. Patient was also given 500 mL of saline. Patient was recommended to follow-up with primary care for further instructions and treatment plans. Discharge Plan Discharge Patient Disposition: Home Clinical Impression: Headache Condition: Stable Prescriptions: No Action (DME) Sole Supports See Rx Instructions .ROUTE .MEDSUPPLY Qty: 1 0RF Rx Instructions: As directed Claritin-D 12 Hour 5-120 mg tablet extended release 12 hr 1 tab PO Q12H PRN (Reason: allergy symptoms) Qty: 30 0RF levothyroxine [Synthroid] 25 mcg tablet 25 mcg PO ONCE Qty: 90 1RF hydrocodone-acetaminophen 5-325 mg tablet 1 tab PO QID PRN (Reason: pain) 30 Days Qty: 110 0RF Rx Instructions: fill on or after 06/16/21 hydrocodone-acetaminophen 5-325 mg tablet 1 tab PO QID PRN (Reason: pain) 30 Days Qty: 110 0RF Rx Instructions: fill on or after 07/16/21 ziprasidone HCl [Geodon] 20 mg capsule 20 mg PO BID Qty: 60 4RF Rx Instructions: Take one capsule in morning and evening with 500 javier meals trazodone 100 mg tablet 200 mg PO .QHS PRN (Reason: sleep) Qty: 60 4RF Rx Instructions: Take one to two tablets at bedtime as needed for sleep sertraline [Zoloft] 100 mg tablet 100 mg PO .morning Qty: 30 4RF Rx Instructions: Take one tablet by mouth every morning lithium carbonate 300 mg capsule 300 mg PO BID Qty: 60 4RF Rx Instructions: Take one capsule twice per day lamotrigine [Lamictal] 200 mg tablet 200 mg PO DAILY Qty: 30 4RF Rx Instructions: Take one tablet by mouth daily pantoprazole 40 mg tablet,delayed release (DR/EC) 40 mg PO ONCE Qty: 90 1RF cyclobenzaprine 10 mg tablet 10 mg PO TID 30 Days Qty: 90 1RF cholecalciferol (vitamin D3) 1,250 mcg (50,000 unit) capsule 50,000 unit PO .once weekly Qty: 12 0RF azelastine 137 mcg (0.1 %) aerosol,spray 1 spray intranasal BID Qty: 30 1RF Discharge Orders: Discharge ED (Routine); Ordered 07/03/21 Ordered By: Kendrick Fall Referrals: Marnie Cardenas MD [Primary Care Provider] - Discharge Diet: Usual diet Discharge Activity: Increase activity as tolerated Patient Instructions: Acute Headache (ED), Opioid Safety Activity Restrictions/Additional Instructions: Drink plenty of water. Continue with routine medications as directed. Follow-up with primary care for further instruction. Return to ER for new concerns. Coding Level of Care Code ED Floor Covering Printer Assistant for Chg Fwd Exam Comprehensive Documented by User: Kendrick Fall, 07/03/21 03:52 HPI - Headache General: Chief Complaint: Headache Stated Complaint: migraine Time Seen by Provider: 07/03/21 02:34 PFSH ED PFSH: Medical History Atrophic vaginitis Bereavement Loss of parents Bilateral low back pain with right-sided sciatica Bipolar disorder Bipolar disorder, in partial remission, most recent episode depressed Carpal tunnel syndrome, bilateral Chronic back pain Chronic sacroiliac pain Encounter for long-term use of 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 Genital herpes in women GERD (gastroesophageal reflux disease) Hypothyroidism Mixed incontinence Psychiatric care Recurrent UTI Surgical History Bariatric surgery status H/O LEEP S/P dilatation and curettage age of 19 in [place], [place] S/P gastric bypass [facility]. [id number] S/P hysterectomy Dr. Underwood-1998 ovaries remain Family History Father Diabetes Stroke Grandmother Cancer breast-ovarian Brother Diabetes Hypertension Mother Thyroid disease Social History Smoking and tobacco status: former smoker Second hand smoke exposure: No Alcohol intake: never Marital status: History of recent travel: No Course Vital Signs: Vital signs: Vital Signs Temperature 97.9 F 07/03/21 02:29 Pulse Rate 88 07/03/21 02:29 Respiratory Rate 18 07/03/21 02:29 Blood Pressure 152/98 07/03/21 02:29 Pulse Oximetry 95 07/03/21 02:29 MDM - Headache Medical Decision Making 61-year-old female comes in today with complaints of frontal headache. On exam patient appears well. Patient has some tenderness in the frontal and maxillary sinus area. Conjunctiva is normal. Naris are normal. Respirations are even lungs are clear to auscultation. Patient reports that this is similar to her previous headaches. No meningeal signs are noted. Vital signs are normal except for some mild elevation of blood pressure with a systolic reading of 152. Differential diagnosis includes sinusitis, headache, migraine headache. Believe patient probably has an acute headache we will treat with migraine cocktail ketorolac 15 mg, Reglan 10 mg, diphenhydramine 25 mg, and 8 mg of dexamethasone. Patient was also given 500 mL of saline. Patient was recommended to follow-up with primary care for further instructions and treatment plans. This patient was originally seen by CEDRICK Avelar.? I agree with his history, evaluation, and treatment. Discharge Plan Discharge Patient Disposition: Home Clinical Impression: Headache Condition: Stable Prescriptions: No Action (DME) Sole Supports See Rx Instructions .ROUTE .MEDSUPPLY Qty: 1 0RF Rx Instructions: As directed Claritin-D 12 Hour 5-120 mg tablet extended release 12 hr 1 tab PO Q12H PRN (Reason: allergy symptoms) Qty: 30 0RF levothyroxine [Synthroid] 25 mcg tablet 25 mcg PO ONCE Qty: 90 1RF hydrocodone-acetaminophen 5-325 mg tablet 1 tab PO QID PRN (Reason: pain) 30 Days Qty: 110 0RF Rx Instructions: fill on or after 06/16/21 hydrocodone-acetaminophen 5-325 mg tablet 1 tab PO QID PRN (Reason: pain) 30 Days Qty: 110 0RF Rx Instructions: fill on or after 07/16/21 ziprasidone HCl [Geodon] 20 mg capsule 20 mg PO BID Qty: 60 4RF Rx Instructions: Take one capsule in morning and evening with 500 javier meals trazodone 100 mg tablet 200 mg PO .QHS PRN (Reason: sleep) Qty: 60 4RF Rx Instructions: Take one to two tablets at bedtime as needed for sleep sertraline [Zoloft] 100 mg tablet 100 mg PO .morning Qty: 30 4RF Rx Instructions: Take one tablet by mouth every morning lithium carbonate 300 mg capsule 300 mg PO BID Qty: 60 4RF Rx Instructions: Take one capsule twice per day lamotrigine [Lamictal] 200 mg tablet 200 mg PO DAILY Qty: 30 4RF Rx Instructions: Take one tablet by mouth daily pantoprazole 40 mg tablet,delayed release (DR/EC) 40 mg PO ONCE Qty: 90 1RF cyclobenzaprine 10 mg tablet 10 mg PO TID 30 Days Qty: 90 1RF cholecalciferol (vitamin D3) 1,250 mcg (50,000 unit) capsule 50,000 unit PO .once weekly Qty: 12 0RF azelastine 137 mcg (0.1 %) aerosol,spray 1 spray intranasal BID Qty: 30 1RF Discharge Orders: Discharge ED (Routine); Ordered 07/03/21 Ordered By: Kendrick Fall Referrals: Marnie Cardenas MD [Primary Care Provider] - Discharge Diet: Usual diet Discharge Activity: Increase activity as tolerated Patient Instructions: Acute Headache (ED), Opioid Safety Activity Restrictions/Additional Instructions: Drink plenty of water. Continue with routine medications as directed. Follow-up with primary care for further instruction. Return to ER for new concerns. Coding Level of Care Code ED Floor Covering Printer Assistant for Teag Fwd Exam Comprehensive
[2021-07-03] MEDS: dexamethasone 4 mg/mL INJ 8 MG IVP (03:25)
[2021-07-03] MEDS: sodium chloride 0.9% 500 ML 999 ML IV (03:25)
[2021-07-03] MEDS: metoclopramide 5 mg/mL SDV 2 mL 10 MG IVP (03:25)
[2021-07-03] MEDS: ketorolac 30 mg/mL INJ 15 MG IVP (03:25)
[2021-07-03] MEDS: diphenhydrAMINE 50 mg/mL SDV 1mL 25 MG IVP (03:25)
== END 2021-07-03 04:48 | disposition home or self-care (01) ==
PROVIDERS: Emergency Provider Nurse Practitioner Family; PCP Family Medicine
DX: R51.9 Headache, unspecified (principal); Z87.891 Personal history of nicotine dependence
CPT/HCPCS: 96374; 96375; 99284; J1100; J1200; J1885; J2765; J7040

== ENCOUNTER 2021-08-20 02:25 | Emergency (ER) | payer MEDICARE, MEDICAID, SELFPAY ==
[2021-08-20 02:38] VITALS: BP 141/84; PULSE 77; RESP 18; TEMP 36.5; O2SAT 97; BMI 34.0
[2021-08-20 03:18] LABS: Basophils # 0.1 10^3/uL (0.0-0.1); Basophils % 0.8 %; Eosinophils # 0.1 10^3/uL (0.0-0.8); Eosinophils % 1.7 %; Hematocrit 42.8 % (37.0-47.0); Hemoglobin 13.5 g/dL (11.5-15.3); Lymphocytes # 1.8 10^3/uL (0.8-4.8); Lymphocytes % 22.3 %; Mean Corpuscular HGB Conc 31.5 g/dL (30.0-36.0); Mean Corpuscular Hemoglobin 28.1 pg (28.0-34.0); Mean Platelet Volume 10.3 fL (7.4-10.4); Monocytes # 0.5 10^3/uL (0.2-0.9); Monocytes % 5.9 %; Neutrophils # 5.68 10^3/uL (1.8-7.7); Neutrophils % 69.1 %; Nucleated Red Blood Cells % 0 %; Platelet Count 311 10^3/cmm (130-400); Red Blood Count 4.81 10^6/uL (4.1-5.3); Red Cell Distribution Width 13.6 % (12.1-15.1); White Blood Count 8.2 10^3/uL (4.0-10.0)
[2021-08-20 03:21] LABS: Add Urine Microscopic? YES; Bilirubin Urine Neg (Negative); Blood Urine 2+ (Negative); Glucose Urine UA Norm (Normal); Ketones Urine Negative (Negative); Leukocyte Esterase Urine 2+ (Negative); Nitrate Urine Negative (Negative); Protein Urine 1+ (Negative); Specific Gravity, Urine 1.015 (1.005-1.030); Urine Color Yellow (Yellow); Urobilinogen Urine Norm (Negative); pH Urine 5 (5-7)
[2021-08-20 03:31] LABS: Add Urine Culture? Yes; Bacteria Urine 4+ /hpf; RBC Urine >100 /hpf (0-2); Squamous Epithelial Cell Urine 0-4 /hpf (0-5); WBC Urine >100 /hpf (0-5)
[2021-08-20 03:40] LABS: Alanine Aminotransferase 7 U/L (0-33); Albumin Level 4.4 g/dL (3.5-5.2); Alkaline Phosphatase 170 IU/L (35-105); Anion Gap 13.3 (5-19); Aspartate Amino Transferase 13 U/L (0-32); Blood Urea Nitrogen 17 mg/dL (6-20); Calcium 9.6 mg/dL (8.5-10.5); Carbon Dioxide 24 mmol/L (22-29); Chloride 106 mmol/L (98-107); Glomerular Filtration Rate 56.7 mL/min (90-130); Glucose 112 mg/dL (65-115); Lipase 54 U/L (13-60); Osmolality Calculated 290 mOsm/kg (285-295); Potassium 4.3 mmol/L (3.5-5.1); Sodium 139 mmol/L (136-145); Total Bilirubin 0.3 mg/dL (0.15-1.2); Total Protein 6.4 g/dL (6.6-8.7)
--- NOTE | 2021-08-20 04:39 | CTR_ITS ---
PROCEDURE INFORMATION: Exam: CT Abdomen And Pelvis With Contrast Exam date and time: 08/20/2021 4:58 AM Age: 61 years old Clinical indication: Abdominal pain; Prior surgery; Surgery type: Gastric bypass. Hysterectomy. ; Patient HX: C/O periumbilical pain. TECHNIQUE: Imaging protocol: Computed tomography of the abdomen and pelvis with contrast. Radiation optimization: All CT scans at this facility use at least one of these dose optimization techniques: automated exposure control; mA and/or kV adjustment per patient size (includes targeted exams where dose is matched to clinical indication); or iterative reconstruction. Contrast material: OMNI 300; Contrast volume: 95 ml; Contrast route: INTRAVENOUS (IV); COMPARISON: CT abdomen pelvis w con* [id number] 12/07/2017 3:47 AM RADIATION DOSE METRICS: Total DLP (mGy-cm): 1666.52 FINDINGS: Diaphragm: There is a small hiatal hernia. Status post gastric sleeve procedure. Liver: Normal. No mass. Gallbladder and bile ducts: Normal. No calcified stones. No ductal dilation. Pancreas: Normal. No ductal dilation. Spleen: Normal. No splenomegaly. Adrenal glands: Normal. No mass. 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 The upper ureter is prominent without evidence of obstructing ureteral calculi or masses. Stomach and bowel: See Diaphragm finding. Appendix: The appendix is visualized and is normal in configuration. Intraperitoneal space: Unremarkable. No free air. No significant fluid collection. Vasculature: Unremarkable. No abdominal aortic aneurysm. Lymph nodes: Unremarkable. No enlarged lymph nodes. Urinary bladder: Unremarkable as visualized. Reproductive: Status post hysterectomy. Bones/joints: Unremarkable. No acute fracture. Soft tissues: Unremarkable. CT/CT abdomen pelvis w con* [id number] IMPRESSION: 1. There are no acute abdominal findings. 2. 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
[2021-08-20] MEDS: iohexol 300 mg/mL 100 mL Btl IV (04:56)
[2021-08-20] MEDS: ondansetron 2 mg/ML SDV 2 mL 4 MG IVP (05:20)
[2021-08-20] MEDS: ketorolac 30 mg/mL INJ 15 MG IVP (05:20)
[2021-08-20] MEDS: sodium chloride 0.9% 1,000 ML 999 ML IV (05:21)
[2021-08-20] MEDS: nitrofurantoin SR (BID) 100 mg Capsule PO (05:44)
[2021-08-20 06:11] VITALS: BP 151/67; PULSE 60; RESP 16; O2SAT 98
--- NOTE | 2021-08-21 04:21 | ED_ITS ---
HPI - Abdominal Pain General: Chief Complaint: Abdominal Pain Stated Complaint: severe stomach pain Time Seen by Provider: 08/20/21 02:54 Source: patient History of Present Illness: 61-year-old female presenting with abdominal pain and nausea worsening over the course of a week. Seems to worsen when she eats. No vomiting. No diarrhea. MD elicited complaint: abdominal pain Pertinent past history: other Onset (ago): day(s) Pain Consistency: constant Location: Diffuse Severity: moderate Quality: cramping and stabbing Radiation: none Migration to: no migration Exacerbating factors: eating and movement Relieving factors: nothing Associated Symptoms: Reports bloating, nausea and poor appetite; Denies change in stool character, coffee ground emesis, diarrhea, fever(s) and vomiting Review of Systems Const: Denies: fever(s) ENMT: Denies: throat pain Card: Denies: chest pain Resp: Denies: dyspnea GI: Reports: nausea and bloating; Denies: vomiting, coffee ground emesis, diarrhea or change in stool character PFS ED PFSH: Medical History Atrophic vaginitis Bereavement Loss of parents Bilateral low back pain with right-sided sciatica Bipolar disorder Bipolar disorder, in partial remission, most recent episode depressed Carpal tunnel syndrome, bilateral Chronic back pain Chronic sacroiliac pain Encounter for long-term use of 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 Genital herpes in women GERD (gastroesophageal reflux disease) Hypothyroidism Mixed incontinence Psychiatric care Recurrent UTI Surgical History Bariatric surgery status H/O LEEP S/P dilatation and curettage age of 19 in [place], [place] S/P gastric bypass [facility]. [id number] S/P hysterectomy Dr. Underwood-1997 ovaries remain Family History Father Diabetes Stroke Grandmother Cancer breast-ovarian Brother Diabetes Hypertension Mother Thyroid disease Social History Smoking and tobacco status: former smoker Second hand smoke exposure: No Alcohol intake: never Marital status: History of recent travel: No Physical Exam Const: COMMON NORMALS: no acute distress ORIENTATION/CONSCIOUSNESS: Yes awake, Yes oriented to person and Yes oriented to time HENMT: COMMON NORMALS: normocephalic, atraumatic and Normal external nose present HEAD & SCALP: normocephalic and atraumatic NOSE: Normal external nose present Eye: COMMON NORMALS: Equal, round and reactive pupils present and EOMs intact bilaterally PUPIL: Yes Equal, round and reactive pupils present Chest: COMMONS NORMALS: normal inspection of the chest Resp: COMMON NORMALS: normal respiratory effort, No use of accessory muscles and clear to auscultation bilaterally AUSCULTATION: clear to auscultation bilaterally Cardio: COMMON NORMALS: regular rate and regular rhythm RATE: regular rate RHYTHM: regular rhythm GI: COMMON NORMALS: Soft to palpation INSPECTION: Yes abdominal distension PALPATION: Yes Soft to palpation, No Firmness to palpation present (GI) and Yes Tenderness to palpation present (GI) Neuro: SENSORIUM/ORIENTATION: Yes oriented to person and Yes oriented to time Course Vital Signs: Vital signs: Vital Signs Temperature 97.7 F 08/20/21 02:38 Pulse Rate 60 08/20/21 06:11 Respiratory Rate 16 08/20/21 06:11 Blood Pressure 151/67 08/20/21 06:11 Pulse Oximetry 98 08/20/21 06:11 MDM - Abdominal Pain Medical Decision Making CBC normal. BMP essentially normal. Bilirubin is not elevated. Greater than 100 whites and 100 reds in her urine. Sample does not appear significantly contaminated. We will treat. CT of the belly shows no acute abdominal findings. No stone. No calculi. We will treat accordingly Lab Data : 08/20/21 03:12 08/20/21 03:12 Labs/Radiology: Radiology Impressions Abdomen/Pelvis CT 08/20/21 04:39 IMPRESSION: 1. There are no acute abdominal findings. 2. 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 Laboratory Results WBC 8.2 10^3/uL (4.0-10.0) 08/20/21 03:12 RBC 4.81 10^6/uL (4.1-5.3) 08/20/21 03:12 Hgb 13.5 g/dL (11.5-15.3) 08/20/21 03:12 Hct 42.8 % (37.0-47.0) 08/20/21 03:12 MCV 89.0 fl (81-99) 08/20/21 03:12 MCH 28.1 pg (28.0-34.0) 08/20/21 03:12 MCHC 31.5 g/dL (30.0-36.0) 08/20/21 03:12 RDW 13.6 % (12.1-15.1) 08/20/21 03:12 Plt Count 311 10^3/cmm (130-400) 08/20/21 03:12 MPV 10.3 fL (7.4-10.4) 08/20/21 03:12 Neut % (Auto) 69.1 % 08/20/21 03:12 Lymph % (Auto) 22.3 % 08/20/21 03:12 Granite % (Auto) 5.9 % 08/20/21 03:12 Eos % (Auto) 1.7 % 08/20/21 03:12 Baso % (Auto) 0.8 % 08/20/21 03:12 Neut # (Auto) 5.68 10^3/uL (1.8-7.7) 08/20/21 03:12 Lymph # (Auto) 1.8 10^3/uL (0.8-4.8) 08/20/21 03:12 Granite # (Auto) 0.5 10^3/uL (0.2-0.9) 08/20/21 03:12 Eos # (Auto) 0.1 10^3/uL (0.0-0.8) 08/20/21 03:12 Baso # (Auto) 0.1 10^3/uL (0.0-0.1) 08/20/21 03:12 Nucleated RBC % (auto) 0 % 08/20/21 03:12 Nucleated RBCs # 0.0 /100WBC 08/20/21 03:12 Sodium 139 mmol/L (136-145) 08/20/21 03:12 Potassium 4.3 mmol/L (3.5-5.1) 08/20/21 03:12 Chloride 106 mmol/L (98-107) 08/20/21 03:12 Carbon Dioxide 24 mmol/L (22-29) 08/20/21 03:12 Anion Gap 13.3 (5-19) 08/20/21 03:12 BUN 17 mg/dL (6-20) 08/20/21 03:12 Creatinine 1.0 mg/dL (0.5-0.9) H 08/20/21 03:12 GFR Calculation 56.7 mL/min (90-130) L 08/20/21 03:12 Glucose 112 mg/dL (65-115) 08/20/21 03:12 Calculated Osmolality 290 mOsm/kg (285-295) 08/20/21 03:12 Calcium 9.6 mg/dL (8.5-10.5) 08/20/21 03:12 Total Bilirubin 0.3 mg/dL (0.15-1.2) 08/20/21 03:12 AST 13 U/L (0-32) 08/20/21 03:12 ALT 7 U/L (0-33) 08/20/21 03:12 Alkaline Phosphatase 170 IU/L (35-105) H 08/20/21 03:12 Total Protein 6.4 g/dL (6.6-8.7) L 08/20/21 03:12 Albumin 4.4 g/dL (3.5-5.2) 08/20/21 03:12 Globulin 2.0 g/dL (1.3-4.6) 08/20/21 03:12 Lipase 54 U/L (13-60) 08/20/21 03:12 Urine Color Yellow (Yellow) 08/20/21 03:00 Urine Appearance Sl cloudy (CLEAR) A 08/20/21 03:00 Urine pH 5 (5-7) 08/20/21 03:00 Ur Specific [place] 1.015 (1.005-1.030) 08/20/21 03:00 Urine Protein 1+ (Negative) H 08/20/21 03:00 Urine Glucose (UA) Norm (Normal) 08/20/21 03:00 Urine Ketones Negative (Negative) 08/20/21 03:00 Urine Blood 2+ (Negative) H 08/20/21 03:00 Urine Nitrate Negative (Negative) 08/20/21 03:00 Urine Bilirubin Neg (Negative) 08/20/21 03:00 Urine Urobilinogen Norm mg/dL (Negative) 08/20/21 03:00 Ur Leukocyte Esterase 2+ (Negative) H 08/20/21 03:00 Urine RBC >100 /hpf (0-2) H 08/20/21 03:00 Urine WBC >100 /hpf (0-5) H 08/20/21 03:00 Ur Squamous Epith Cells 0-4 /hpf (0-5) H 08/20/21 03:00 Amorphous Sediment Not Reportable 08/20/21 03:00 Urine Bacteria 4+ /hpf (NONE) H 08/20/21 03:00 Discharge Plan Discharge Patient Disposition: Home Clinical Impression: Urinary tract infection Condition: Stable Prescriptions: New nitrofurantoin macrocrystal 100 mg capsule 100 mg PO BID 7 Days Qty: 14 0RF Rx Instructions: must administer with a meal/food ondansetron 4 mg film 4 mg PO DAILY PRN (Reason: nausea and vomiting) Qty: 10 0RF No Action (DME) Sole Supports See Rx Instructions .ROUTE .MEDSUPPLY Qty: 1 0RF Rx Instructions: As directed Claritin-D 12 Hour 5-120 mg tablet extended release 12 hr 1 tab PO Q12H PRN (Reason: allergy symptoms) Qty: 30 0RF hydrocodone-acetaminophen 5-325 mg tablet 1 tab PO QID PRN (Reason: pain) 30 Days Qty: 110 0RF Rx Instructions: fill on or after 07/16/21 cyclobenzaprine 10 mg tablet 10 mg PO TID 30 Days Qty: 90 1RF hydrocodone-acetaminophen 5-325 mg tablet 1 tab PO QID PRN (Reason: pain) 30 Days Qty: 110 0RF Rx Instructions: fill on or after 06/16/21 pantoprazole 40 mg tablet,delayed release (DR/EC) 40 mg PO ONCE Qty: 90 1RF ziprasidone HCl [Geodon] 20 mg capsule 20 mg PO BID Qty: 60 4RF Rx Instructions: Take one capsule in morning and evening with 500 javier meals trazodone 100 mg tablet 200 mg PO .QHS PRN (Reason: sleep) Qty: 60 4RF Rx Instructions: Take one to two tablets at bedtime as needed for sleep lithium carbonate 300 mg capsule 300 mg PO BID Qty: 60 4RF Rx Instructions: Take one capsule twice per day lamotrigine [Lamictal] 200 mg tablet 200 mg PO DAILY Qty: 30 4RF Rx Instructions: Take one tablet by mouth daily sertraline [Zoloft] 100 mg tablet 100 mg PO .morning Qty: 30 4RF Rx Instructions: Take one tablet by mouth every morning Discharge Orders: Discharge ED (Routine); Ordered 08/20/21 Ordered By: Kendrick Fall Referrals: Marnie Cardenas MD [Primary Care Provider] - 4-7 days Patient Instructions: Urinary Tract Infection in Women (ED) Activity Restrictions/Additional Instructions: Return for fever greater than 100, vomiting liquids or medications, worsening pain despite treatment, any other concerning symptoms. Take the nausea medication scheduled every 6 hours while awake for the first 24 hours, then as needed. 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
== END 2021-08-20 06:12 | disposition home or self-care (01) ==
PROVIDERS: Nurse Practitioner Family; Emergency Provider Emergency Medicine; PCP Family Medicine
DX: N39.0 Urinary tract infection, site not specified (principal); Z87.891 Personal history of nicotine dependence; Z87.440 Personal history of urinary (tract) infections
CPT/HCPCS: 74177; 80053; 81001; 83690; 85025; 87077; 87086; 87186; 96361; 96374; 96375; 99283; J1885; J2405; J7030; Q9967

== ENCOUNTER 2021-12-15 09:59 | Outpatient (CLI) | payer MEDICARE, MEDICAID, SELFPAY ==
--- NOTE | 2021-12-15 10:06 | MR_ITS ---
WS: [id number] MRI LUMBAR SPINE NONCONTRAST TECHNIQUE: Sagittal T1, T2 and STIR imaging. Axial T1 and T2 imaging. CLINICAL INFORMATION: SPONDYLOSIS OF LUMBAR REGION COMPARISON: MRI August 18, 2020 FINDINGS: Mild lumbar curve. No acute compression. No high-grade central canal stenosis. L1-L2: Mild facet arthropathy. Spinal canal and foramen are patent. L2-L3: Mild annular bulging. Moderate facet arthropathy. Mild bilateral foraminal narrowing RIGHT gre ater than LEFT. L3-L4: Mild annular bulging. Moderate facet arthropathy. Mild RIGHT greater than LEFT foraminal narro wing. Spinal canal is patent. L4-L5: LEFT eccentric disc osteophytic ridging. Slight contact of the exiting LEFT L4 nerve root. Mil d LEFT greater than RIGHT foraminal narrowing. Moderate facet arthropathy ligamentum flavum hypertrop hy. Slight narrowing of the subarticular recess bilaterally. L5-S1: Disc osteophytic ridging eccentric to the RIGHT. Mild RIGHT and no significant LEFT foraminal narrowing. Spinal canal is patent. Mild facet arthropathy. Visualized pelvic bony structures: Normal. Paravertebral soft tissues: Normal. Central canal stenosis L4-L5 slightly progressed compared to previous. No other significant interval changes. MR/MR lumbar spine wo con* [id number] IMPRESSION: 1. Mild lumbar curve. No acute compression. No high-grade central canal stenos is. 2. Mild central canal stenosis L4-L5 due to mild annular bulging with facet ar thropathy ligamentum flavum hypertrophy. Central canal stenosis slightly progre ssed compared to previous. 3. LEFT eccentric disc osteophytic ridging L4-L5 with contact of the exiting L EFT L4 nerve root. 4. Tiny RIGHT foraminal protrusion L2-L3 and RIGHT L3-L4 with encroachment on the exiting RIGHT L2 and L3 nerve roots respectively. 5. Mild RIGHT L5-S1 foraminal narrowing. 6. Moderate facet arthropathy worse at L4-L5.
== END 2021-12-15 10:00 | disposition home or self-care (01) ==
LOC: RAD 10:00
PROVIDERS: PCP Family Medicine; Visit Provider Anesthesiology
DX: M47.816 Spondylosis without myelopathy or radiculopathy, lumbar region (principal); M51.26 Other intervertebral disc displacement, lumbar region; M48.061 Spinal stenosis, lumbar region without neurogenic claudication
CPT/HCPCS: 72148

== ENCOUNTER 2021-12-23 10:21 | Outpatient (CLI) | payer MEDICARE, MEDICAID, SELFPAY ==
--- NOTE | 2021-12-23 10:26 | CT_ITS ---
WS: [id number] CT NECK WITH CONTRAST HISTORY: LOCALIZING Swelling, mass, LUMP, NECK TECHNIQUE: Contiguous 5 mm axial images are performed through the neck with intravenous contrast. Sag ittal and coronal reformats are also submitted. All CT scans at [facility] use at least one o f these dose optimization techniques: automated exposure control; mA and/or kV adjustment per patient size (includes targeted exams where dose is matched to clinical indication); or iterative reconstruc tion. CONTRAST: CONTRAST: Omnipaque 350; 95 mL IV. DLP: 213.40 mGy.cm COMPARISON: 10/05/2020 Nasopharynx, oropharynx, hypopharynx and larynx are unremarkable. No soft tissue masses or abnormal e nhancement. Torus tubarius and fossa of Rosenmuller and parapharyngeal fat are normal. Large low-attenuation mass noted along the RIGHT cervical chain most consistent with a large lymph no de which may be a cystic lymph node. This mass is at level IIa along the cervical chain. Mass begins along above the level of the hyoid bone and extends just lateral to the carotid arteries. This mass a buts the sternocleidomastoid muscle and interrupts the fat plane. Mass does extend below the level of the hyoid bone. Cystic mass measures 3.0 x 2.0 cm. A similar mass but smaller was noted in this loc ation on the prior study of 10/05/2020. There are smaller bilateral cervical chain lymph nodes. Thyroid gland and salivary glands are normally enhancing with no masses. Mild straightening of the normal cervical lordosis. Moderate degenerative disc disease at C5-6 and C6 -7. Visualized portions of the skull base demonstrate no abnormalities. Orbits and globes are within norm al limits. No soft tissue masses. Visualized paranasal sinuses and mastoid air cells are normal. Chronic emphysematous changes at the lung apices. CT/CT neck w con* [id number] IMPRESSION: 1. Well-circumscribed low-attenuation mass along the RIGHT cervical chain at l evel IIa. Mass measures 3.0 x 2.0 cm and may be a cystic or low-attenuation lym ph node. Similar lymph node was noted in this location on 10/05/2020. If this is the same lymph node it has increased in size. No additional adenopathy. Due to its increased size and low-attenuation malignancy is not evident excluded. 2. No additional adenopathy.
[2021-12-23] MEDS: iohexol 350 mg/mL 100 mL Btl IV (10:53)
== END 2021-12-23 10:22 | disposition home or self-care (01) ==
LOC: RAD 10:21
PROVIDERS: PCP Family Medicine; Visit Provider Specialist
DX: R22.1 Localized swelling, mass and lump, neck (principal)
CPT/HCPCS: 70491

== ENCOUNTER 2022-01-10 10:59 | Outpatient (CLI) | payer MEDICARE, MEDICAID, SELFPAY ==
--- NOTE | 2022-01-10 11:48 | ECG_ITS ---
[facility] Test Date: 2022-01-10 Pat Name: Bobbi Fritz Department: Room: Gender: Female Vessel Captain: : 1960 Requested By: Artie Arreola Order Number: [id number] Lynda MD: Herbie Jin M.D. Measurements Intervals [place] Rate: 65 P: -17 [place]: 147 QRS: -29 QRSD: 95 T: -10 QT: 367 QTc: 383 Interpretive Statements SINUS RHYTHM LOW QRS VOLTAGE IN PRECORDIAL LEADS [QRS DEFLECTION < 1.0 mV IN CHEST LEADS] MODERATE VOLTAGE CRITERIA FOR LVH, CONSIDER NORMAL VARIANT [MEETS CRITERIA IN ONE OF: R(aVL), S(V1), R(V5), R(V5/V6)+S(V1)] POSSIBLE ANTERIOR MYOCARDIAL INFARCTION , OF INDETERMINATE AGE [30 ms Q WAVE IN V3/V4, OR R < 0.2 mV IN V4] Compared to ECG 10/27/2020 15:13:20 No significant changes Electronically Signed On 01-10-2022 17:52:19 CDT by Herbie Jin M.D. [id number]
== END 2022-01-10 11:00 | disposition home or self-care (01) ==
LOC: RT 11:00
PROVIDERS: PCP Family Medicine; Visit Provider Specialist
DX: R22.1 Localized swelling, mass and lump, neck (principal)
CPT/HCPCS: 93005

== ENCOUNTER 2022-01-13 00:15 | Emergency (ER) | payer MEDICARE, MEDICAID, SELFPAY ==
[2022-01-13 00:27] VITALS: BP 119/74; PULSE 98; RESP 18; TEMP 36.5; O2SAT 98; BMI 31.8
--- NOTE | 2022-01-13 00:36 | CTR_ITS ---
PROCEDURE INFORMATION: Exam: CT Neck With Contrast Exam date and time: 01/13/2022 12:58 AM Age: 62 years old Clinical indication: Dysphagia / difficulty swallowing and mass, lump, or swelling in neck; Right; Prior surgery; Surgery type: Neck biopsy; Patient HX: Patient has known RT sided neck mass with negative bx. Results. Scheduled for surgery next week. Patients states feels like it is getting larger and is having some dysphagia. TECHNIQUE: Imaging protocol: Computed tomography of the neck with contrast. Radiation optimization: All CT scans at this facility use at least one of these dose optimization techniques: automated exposure control; mA and/or kV adjustment per patient size (includes targeted exams where dose is matched to clinical indication); or iterative reconstruction. Contrast material: OMNI 350; Contrast volume: 80 ml; Contrast route: INTRAVENOUS (IV); COMPARISON: CT neck w con* [id number] 12/23/2021 10:42 AM RADIATION DOSE METRICS: Total DLP (mGy-cm): 184.48 FINDINGS: Pharynx: Unremarkable. No significant tonsillar enlargement. Larynx: Unremarkable. Epiglottis is normal. Prevertebral and retropharyngeal spaces: Unremarkable. 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 Thyroid: Normal. No enlarged or calcified nodules. Lymph nodes: Unremarkable. No lymphadenopathy. Trachea: Visualized trachea is unremarkable. Lungs: Unremarkable as visualized. Bones/joints: Moderate to severe multilevel spine degenerative changes including degenerative disc disease, spondylosis and facet degenerative changes. Mild kyphosis which may be secondary to patient positioning and/or muscle spasm and/or multilevel degenerative change. Soft tissues: See Bones/joints finding. 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
--- NOTE | 2022-01-13 00:37 | W.ED.GENADLT ---
HPI - General Adult General: Chief complaint: General Medical Stated complaint: lump on Righ side of throat Time Seen by Provider: 01/13/22 00:34 Source: patient Mode of arrival: ambulatory Limitations: no limitations History of Present Illness: 62-year-old female states that she has had a neck mass states she feels like it is grown over the last 2 days and the right side she feels like 7 difficulty swallowing breathing here she is in no distress currently she has surgery to have it removed by Dr. Fletcher next week. Denies any fevers. Associated symptoms: Deny chest pain, dyspnea, headache(s), nausea, rash or vomiting Review of Systems Const: Denies: fever(s), chills, body aches or change in appetite Eyes: Denies: blurry vision or eye discomfort ENMT: Reports: odynophagia Card: Denies: chest pain Resp: Denies: dyspnea GI: Denies: abdominal pain, nausea, vomiting or diarrhea : Denies: dysuria Musc: Denies: neck pain or back pain Skin/Breast: Denies: rash Neuro: Denies: headache(s) Psych: Denies: depression Juancarlos/Lymph: Denies: easy bruising All/Imm: Denies: urticaria PFSH ED PFSH: Medical History Atrophic vaginitis Bereavement Loss of parents Bilateral low back pain with right-sided sciatica Bipolar disorder Bipolar disorder, in partial remission, most recent episode depressed Carpal tunnel syndrome, bilateral Chronic back pain Chronic sacroiliac pain Encounter for long-term use of 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 Genital herpes in women GERD (gastroesophageal reflux disease) Hypothyroidism Mixed incontinence Psychiatric care Recurrent UTI Surgical History Bariatric surgery status H/O LEEP S/P dilatation and curettage age of 19 in [place] S/P gastric bypass [facility]. [id number] S/P hysterectomy Dr. Underwood-1997 ovaries remain Family History Father Diabetes Stroke Grandmother Cancer breast-ovarian Brother Diabetes Hypertension Mother Thyroid disease Social History Smoking and tobacco status: former smoker Second hand smoke exposure: No Alcohol intake: never Marital status: History of recent travel: No Physical Exam Const: COMMON NORMALS: no acute distress, patient oriented x3 and healthy appearing HENMT: COMMON NORMALS: normocephalic and atraumatic HEAD & SCALP: normocephalic and atraumatic OTHER: No dyspnea or difficulty handling her secretions Eye: COMMON NORMALS: Equal, round and reactive pupils present and EOMs intact bilaterally PUPIL: Yes Equal, round and reactive pupils present Neck/C-Spine: COMMON NORMALS: full ROM and supple OTHER: Mass palpated to right side neck Chest: COMMONS NORMALS: normal inspection of the chest and normal palpation of entire chest wall Resp: COMMON NORMALS: normal respiratory effort, No retractions, No use of accessory muscles and clear to auscultation bilaterally AUSCULTATION: clear to auscultation bilaterally Cardio: COMMON NORMALS: regular rate, regular rhythm and No murmurs present (Cardio) RATE: regular rate RHYTHM: regular rhythm GI: COMMON NORMALS: Normal to inspection, nondistended, normoactive bowel sounds present, Soft to palpation, non-tender and no masses PALPATION: Yes Soft to palpation Extremity: COMMON NORMALS: normal to inspection and full ROM Neuro: COMMON NORMALS: patient oriented x3, moves all extremities and no focal motor deficits Psych: COMMON NORMALS: mental status grossly normal, Normal thought process present and cooperative THOUGHT PROCESS: Normal thought process present Skin: COMMON NORMALS: no rashes or lesions noted and no wounds GENERAL SKIN EXAM: no rashes or lesions noted Course Vital Signs: Vital signs: Vital Signs Temperature 97.7 F 01/13/22 00:27 Pulse Rate 98 01/13/22 00:27 Respiratory Rate 18 01/13/22 00:27 Blood Pressure 119/74 01/13/22 00:27 Pulse Oximetry 98 01/13/22 00:27 Oxygen Delivery Me thod 01/13/22 00:27 MDM - General Adult Medical Decision Making Patient presents here with neck mass she is concerned that was growing and causing issues with swallowing CT here shows no change she is in no distress she is stable for discharge she is to follow-up with ENT next week as scheduled. 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 Laboratory Results WBC 7.9 10^3/uL (4.0-10.0) 01/13/22 00:50 RBC 4.35 10^6/uL (4.1-5.3) 01/13/22 00:50 Hgb 12.6 g/dL (11.5-15.3) 01/13/22 00:50 Hct 38.7 % (37.0-47.0) 01/13/22 00:50 MCV 89.0 fl (81-99) 01/13/22 00:50 MCH 29.0 pg (28.0-34.0) 01/13/22 00:50 MCHC 32.6 g/dL (30.0-36.0) 01/13/22 00:50 RDW 13.5 % (12.1-15.1) 01/13/22 00:50 Plt Count 274 10^3/cmm (130-400) 01/13/22 00:50 MPV 9.9 fL (7.4-10.4) 01/13/22 00:50 Neut % (Auto) 55.6 % 01/13/22 00:50 Lymph % (Auto) 34.3 % 01/13/22 00:50 [place] % (Auto) 7.1 % 01/13/22 00:50 Eos % (Auto) 2.1 % 01/13/22 00:50 Baso % (Auto) 0.6 % 01/13/22 00:50 Neut # (Auto) 4.41 10^3/uL (1.8-7.7) 01/13/22 00:50 Lymph # (Auto) 2.7 10^3/uL (0.8-4.8) 01/13/22 00:50 [place] # (Auto) 0.6 10^3/uL (0.2-0.9) 01/13/22 00:50 Eos # (Auto) 0.2 10^3/uL (0.0-0.8) 01/13/22 00:50 Baso # (Auto) 0.1 10^3/uL (0.0-0.1) 01/13/22 00:50 Nucleated RBC % (auto) 0 % 01/13/22 00:50 Nucleated RBCs # 0.0 /100WBC 01/13/22 00:50 Sodium 140 mmol/L (136-145) 01/13/22 00:50 Potassium 3.6 mmol/L (3.5-5.1) 01/13/22 00:50 Chloride 106 mmol/L (98-107) 01/13/22 00:50 Carbon Dioxide 24 mmol/L (22-29) 01/13/22 00:50 Anion Gap 13.6 (5-19) 01/13/22 00:50 BUN 10 mg/dL (8-23) 01/13/22 00:50 Creatinine 1.1 mg/dL (0.5-0.9) H 01/13/22 00:50 GFR Calculation 50.7 mL/min (90-130) L 01/13/22 00:50 Glucose 100 mg/dL (65-115) 01/13/22 00:50 Calculated Osmolality 289 mOsm/kg (285-295) 01/13/22 00:50 Calcium 9.0 mg/dL (8.5-10.5) 01/13/22 00:50 Discharge Plan Discharge Patient Disposition: Home Clinical Impression: Mass in neck Condition: Stable Prescriptions: No Action (DME) Sole Supports See Rx Instructions .ROUTE .MEDSUPPLY Qty: 1 0RF Rx Instructions: As directed Claritin-D 12 Hour 5-120 mg tablet extended release 12 hr 1 tab PO Q12H PRN (Reason: allergy symptoms) Qty: 30 0RF hydrocodone-acetaminophen 5-325 mg tablet 1 tab PO QID PRN (Reason: pain) 30 Days Qty: 110 0RF Rx Instructions: fill on or after 07/16/21 cyclobenzaprine 10 mg tablet 10 mg PO TID 30 Days Qty: 90 1RF hydrocodone-acetaminophen 5-325 mg tablet 1 tab PO QID PRN (Reason: pain) 30 Days Qty: 110 0RF Rx Instructions: fill on or after 06/16/21 pantoprazole 40 mg tablet,delayed release (DR/EC) 40 mg PO ONCE Qty: 90 1RF ondansetron 4 mg film 4 mg PO Q8H PRN (Reason: nausea and vomiting) Qty: 30 2RF fexofenadine-pseudoephedrine [Brenda-D 12 Hour] 60-120 mg tablet extended release 12 hr 1 tab PO Q12H PRN (Reason: allergy symptoms) Qty: 30 0RF azithromycin [Zithromax Z-Lukas] 250 mg tablet See Rx Instructions PO .COMPLEX Qty: 6 0RF Rx Instructions: take 500 mg today (day 1), then 250 mg for 4 days (days 2-5) PO lamotrigine [Lamictal] 200 mg tablet 200 mg PO DAILY Qty: 30 4RF Rx Instructions: Take one tablet by mouth daily lithium carbonate 300 mg capsule 300 mg PO BID Qty: 60 4RF Rx Instructions: Take one capsule twice per day sertraline [Zoloft] 100 mg tablet 100 mg PO .morning Qty: 30 4RF Rx Instructions: Take one tablet by mouth every morning trazodone 100 mg tablet 200 mg PO .QHS PRN (Reason: sleep) Qty: 60 4RF Rx Instructions: Take one to two tablets at bedtime as needed for sleep ziprasidone HCl [Geodon] 20 mg capsule 20 mg PO BID Qty: 60 4RF Rx Instructions: Take one capsule in morning and evening with 500 javier meals Discharge Orders: Discharge ED (Routine); Ordered 01/13/22 Ordered By: Jane Broussard Referrals: Marnie Cardenas MD [Primary Care Provider] - 1-3 days Discharge Diet: Advance as tolerated Discharge Activity: Resume usual activity Patient Instructions: Soft Tissue Mass (ED) Coding Level of Care Code ED Construction Driller for Chg Fwd Exam Comprehensive
[2022-01-13 00:59] LABS: Basophils # 0.1 10^3/uL (0.0-0.1); Basophils % 0.6 %; Eosinophils # 0.2 10^3/uL (0.0-0.8); Eosinophils % 2.1 %; Hematocrit 38.7 % (37.0-47.0); Hemoglobin 12.6 g/dL (11.5-15.3); Lymphocytes # 2.7 10^3/uL (0.8-4.8); Lymphocytes % 34.3 %; Mean Corpuscular HGB Conc 32.6 g/dL (30.0-36.0); Mean Platelet Volume 9.9 fL (7.4-10.4); Monocytes # 0.6 10^3/uL (0.2-0.9); Monocytes % 7.1 %; Neutrophils # 4.41 10^3/uL (1.8-7.7); Neutrophils % 55.6 %; Nucleated Red Blood Cells % 0 %; Platelet Count 274 10^3/cmm (130-400); Red Blood Count 4.35 10^6/uL (4.1-5.3); Red Cell Distribution Width 13.5 % (12.1-15.1); White Blood Count 7.9 10^3/uL (4.0-10.0)
[2022-01-13] MEDS: iohexol 350 mg/mL 100 mL Btl IV (01:07)
[2022-01-13 01:21] LABS: Anion Gap 13.6 (5-19); Blood Urea Nitrogen 10 mg/dL (8-23); Carbon Dioxide 24 mmol/L (22-29); Chloride 106 mmol/L (98-107); Glomerular Filtration Rate 50.7 mL/min (90-130); Glucose 100 mg/dL (65-115); Osmolality Calculated 289 mOsm/kg (285-295); Potassium 3.6 mmol/L (3.5-5.1); Sodium 140 mmol/L (136-145)
[2022-01-13 02:57] VITALS: BP 161/80; PULSE 82; RESP 17; O2SAT 97
== END 2022-01-13 02:58 | disposition home or self-care (01) ==
PROVIDERS: Emergency Provider Emergency Medicine; PCP Family Medicine
DX: R22.1 Localized swelling, mass and lump, neck (principal); Z87.891 Personal history of nicotine dependence
CPT/HCPCS: 70491; 80048; 85025; 99284; Q9967

== ENCOUNTER 2022-01-17 06:56 | Day surgery (SDC) | payer MEDICARE, MEDICAID, SELFPAY ==
[2022-01-16 08:51] VITALS: BMI 31.0
[2022-01-17] VITALS (9 sets, daily range): BP systolic 118–139; BP diastolic 72–87; PULSE 63–104; RESP 14–20; TEMP 36.1–36.9; O2SAT 93–99
--- NOTE | 2022-01-17 07:45 | ANES.PREANE2 ---
Pre-Anesthetic Assessment Height/Weight: Height 1.63 m Weight 82.1 kg Temp Pulse Resp BP Pulse Ox O2 Del Method 98.2 F 63 16 139/87 97 01/17/22 07:31 01/17/22 07:31 01/17/22 07:31 01/17/22 07:31 01/17/22 07:31 01/17/22 07:37 Preop Diagnosis: Neck mass Operation Date: 01/17/22 08:40 Proposed Procedures p Excisional biopsy and/or neck dissection,right neck mass, R22.1,[id number] possible frozen pathology(Right) - Artie Lagos MD Familial anesthetic complications: None Was Beta Alfie taken within 24 hours: N/A Was Clonidine taken within 24 hours: N/A Last intake: Intake Last Liquid Date 01/17/22 Last Liquid Time 00:05 Last Solid Date 01/16/22 Last Solid Time 23:00 Social Tobacco and No alcohol Exam alert, oriented x 3, clear to auscultation bilaterally and regular rate & rhythm Airway Submandibular: within normal limits Cervical ROM: within normal limits Mallampati: Class II Dentition: false Pulmonary Shortness of Breath CV/HEM None reported Chronic Renal Insufficiency Genital herpes Incontinence Hepatic None reported GI Gastroesophageal Reflux Disease Metabolic Thyroid Disease Musc/skel Lower Back Pain and Osteoarthritis/DJD Mass in neck CT 01/13/22 CT/CT neck w con* [id number] IMPRESSION: Grossly stable smoothly contoured 3.6 x 3.2 x 2.5 cm cystic appearing mass lateral to the right carotid sheath, anterior to the sternocleidomastoid muscle and posterior to the submandibular gland 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 ? Neuropsych Bipolar, Depression and Neuropathy (Carpal tunnel ) Anesthetic Plan ASA status: 3 Anesthesia: Anesthesia Evaluation and General Other: We discussed risk and benefits of general anesthesia including PONV, sore throat (sometimes severe), corneal abrasion, positioning and peripheral nerve injuries, life threatening allergic reaction, post operative ICU admission requiring prolonged intubation, aspiration, stroke, heart attack, , and rare incidences of recall. Patient consents to proceed with general anesthesia. Plan pre op diphenhydramine and famotidine Risk of > 500 ml blood loss (7ml/kg in children): No Medications/Allergies Home Medications Medication Instructions Recorded Confirmed Last Taken Type pantoprazole 40 mg tablet,delayed 40 mg PO ONCE #90 tabs 03/31/20 01/17/22 01/15/22 Rx release Sole Supports #1 ea 04/05/20 12/09/21 Unknown Rx loratadine 5 mg-pseudoephedrine ER 1 tab PO Q12H PRN allergy symptoms 08/23/20 01/17/22 01/15/22 Rx 120 mg tablet,extended #30 tabs release,12hr (Claritin-D 12 Hour) hydrocodone 5 mg-acetaminophen 325 1 tab PO QID PRN pain 30 days #110 06/15/21 01/17/22 01/16/22 20:00 Rx mg tablet tabs ondansetron 4 mg oral soluble film 4 mg PO Q8H PRN nausea and 10/06/21 01/17/22 01/15/22 Rx vomiting #30 ea lamotrigine 200 mg tablet 200 mg PO DAILY #30 tabs 12/09/21 01/17/22 01/15/22 Rx (Lamictal) lithium carbonate 300 mg capsule 300 mg PO BID #60 caps 12/09/21 01/17/22 01/15/22 Rx sertraline 100 mg tablet (Zoloft) 100 mg PO .morning #30 tabs 12/09/21 01/17/22 01/15/22 Rx trazodone 100 mg tablet 200 mg PO .QHS PRN sleep #60 tabs 12/09/21 01/17/22 01/15/22 Rx ziprasidone HCl 20 mg capsule 20 mg PO BID #60 caps 12/09/21 01/17/22 01/15/22 Rx (Geodon) Allergies Allergy/AdvReac Type Severity Reaction Status Date / Time propoxyphene Allergy Severe hives, Verified 01/16/22 08:47 [From Darvocet-N] tongue swelling Sulfa (Sulfonamide Allergy Severe ALGY-Swell Verified 01/16/22 08:47 Antibiotics) Lip/Tongue/Throat cefuroxime [From Ceftin] Allergy unknown Verified 01/16/22 08:47 divalproex sodium Allergy Unknown Verified 01/16/22 08:47 [From Depakote] [facility] Anesthesia Medical History Atrophic vaginitis Bereavement Loss of parents Bilateral low back pain with right-sided sciatica Bipolar disorder Bipolar disorder, in partial remission, most recent episode depressed Carpal tunnel syndrome, bilateral Chronic back pain Chronic sacroiliac pain Encounter for long-term use of 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 Genital herpes in women GERD (gastroesophageal reflux disease) Hypothyroidism Mixed incontinence Psychiatric care Recurrent UTI Surgical History Bariatric surgery status H/O LEEP S/P dilatation and curettage age of 19 in [place], [place] S/P gastric bypass [facility]. [id number] S/P hysterectomy Dr. Underwood-1997 ovaries remain Family History Father Diabetes Stroke Grandmother Cancer breast-ovarian Brother Diabetes Hypertension Mother Thyroid disease Social History Smoking and tobacco status: former smoker Second hand smoke exposure: No Alcohol intake: never Marital status: History of recent travel: No Data Anesthesia Cardiac Studies: No Data to Display
[2022-01-17] MEDS: diphenhydrAMINE 50 mg/mL SDV 1mL 12.5 MG IVP (08:20)
[2022-01-17] MEDS: sodium chloride 0.9% 1,000 ML 30 ML IV (08:36)
[2022-01-17] MEDS: famotidine 20 mg/2 mL INJ IVP (08:37)
--- NOTE | 2022-01-17 09:21 | W.PM.OPSUD ---
Surgery/Procedure H&P Update DATE OF PROCEDURE: January 17, 2022 DATE H&P PERFORMED: 12/30/21 PREOP DIAGNOSIS: Neck mass PRIMARY INDICATION FOR PROCEDURE: Right neck mass PLANNED PROCEDURE: Operation Date: 01/17/22 08:40 Proposed Procedures p Excisional biopsy and/or neck dissection,right neck mass, R22.1,[id number] possible frozen pathology(Right) - Artie Lagos MD
[2022-01-17] MEDS: clindamycin 600 MG/50 ML PREMIX 100 MG IV (09:32)
[2022-01-17] MEDS: EPINEPHrine 1 mg/mL INJ 2 MG XX (10:27)
[2022-01-17] MEDS: clindamycin 600 MG/50 ML PREMIX 100 MG XX (11:00)
[2022-01-17] MEDS: neomycin-poly-bacitracin oint 28 gm 1 APPLIC TOPICAL (11:15)
--- NOTE | 2022-01-17 11:34 | P.OP_ITS ---
Operative Report Date of procedure: January 17, 2022 Pre-op diagnosis: Preop Diagnosis Neck mass Post-op diagnosis: Right neck mass Post-op findings: Cystic right jugulodigastric neck mass Procedure done: Excisional biopsy of right jugulodigastric neck mass Implants: None Specimens removed/disposition: Right neck mass Pathology: other Pathology: Right neck mass Surgeon: Artie Lagos [place] Program Coordinator: Marnie Sue Anesthesia: General Estimated blood loss (mL): 10 IV fluids (mL): 800 Urine output (mL): 100 Complications: None Findings: 3 cm cystic right neck mass Condition: stable Disposition: PACU Brief History: 62 yo wf with a h/o a right jugulodigastric neck mass who desires surgical ev aluation and biopsy. Procedure: The patient was identified in the preoperative holding area and was taken to the operating room where she was placed on the operating table in the supine position. Anesthesia was obtained with general endotracheal anesthesia and the table was then turned 180 degrees. The Nirvana nerve monitoring system was placed on the patient and the patient's head was turned to the left exposing the right neck to the operating surgeons. The right neck mass was identified and a horizontal skin incision was drawn out at the inferior border of the neck mass. This area was injected with local anesthesia and the patient was then prepped and draped in the usual sterile fashion. The incision was made with a 15 blade and the dissection was carried through the subcutaneous tissues with blunt dissection and bipolar cautery. The dissection proceeded until the mass was identified both visually and to palpation. At this point while protecting the right marginal mandibular nerve, the right jugulodigastric neck mass was dissected free from the surrounding tissues with blunt dissection and microbipolar cautery. During the process of excision, the mass ruptured and approximately 5 cc of turbid fluid was expressed from the mass. The wound was then irrigated with a copious amount of antibiotic irrigation. A drain was p laced in the wound and the wound was then closed with interrupted 4-0 Monocryl sutures in the subcu and a running 5-0 Monocryl suture as a subcuticular suture. Finally the skin was closed with Dermabond and Steri-Strips and the procedure was terminated. Control of the patient was returned to anesthesia where she underwent an uneventful reversal of anesthesia and was taken to the recovery room in stable condition. There were no operative or anesthetic complications.
--- NOTE | 2022-01-17 11:38 | SUR.PHASEI ---
1126 PT TO PACU 5 PT AWAKES TO VOICE BUT OTHERWISE SLEEPS WITH GOOD RESP EFFORT, VSS IV PATENT TO LT HAND #20 WITH NS 200ML UP AT KVO RATE PER GRAVITY. RT NECK INCISION WITH OINTMENT AND STERI STRIPS D/I GABRIELA DRAIN COMPRESSED WITH SMALL AMT RED DRAINAGE TO TUBING ONLY. BILAT SCDS ON AND PT HOB AT 20 DEGREES, MONITOR SR WITH NO ECTOPY NOTED , PT ID BAND TO LT WRIST , PT ID'D WITH 2 IDENTIFIERS. WARM BLANKET TO PT X 3. 1135 PT AWAKES TO VOICE DENIES PAIN AND NAUSEA, QUICKLY BACK TO SLEEP VSS DRESSING UNCHANGED
[2022-01-17] MEDS: HYDROcodone-acetaminophen 5-325 mg Tablet 1 TAB PO (12:39)
--- NOTE | 2022-01-17 15:39 | ANE.PACU2 ---
Inpatient post-anesthesia follow up: Airway intact: Yes Vital signs: Temperature 97.3 F Pulse Rate 67 Respiratory Rate 14 Blood Pressure 131/81 Pulse Oximetry 96 Oxygen Delivery Me thod Room Air Oxygen Flow Rate Fraction of Inspir ed Oxygen Hydration adequate: Yes Nausea and vomiting: No Pain level: 1 Mental status: Baseline
[2022-01-18 14:17] LABS: Leukemia Profile (BBPL) See Report; Lymphoma Profile (BBPL) See Report
== END 2022-01-17 13:35 | disposition home or self-care (01) ==
PROVIDERS: PCP Family Medicine; Visit Provider Specialist
PROC: (CPT 21552; principal; 2022-01-17 08:30)
DX: Q18.0 Sinus, fistula and cyst of branchial cleft (principal); I10 Essential (primary) hypertension; K21.9 Gastro-esophageal reflux disease without esophagitis; Z87.891 Personal history of nicotine dependence; Z88.2 Allergy status to sulfonamides; Z88.1 Allergy status to other antibiotic agents
CPT/HCPCS: 21552; 12345; 51702; 87070; 87075; 87205; 88184; 88185; 88309; 88331; J0171; J0330; J1100; J1200; J2250; J2405; J2704; J3010; J3490; J7030

== ENCOUNTER 2022-01-19 01:24 | Emergency (ER) | payer MEDICARE, MEDICAID, SELFPAY ==
[2022-01-19 01:31] VITALS: BP 157/101; PULSE 81; RESP 18; TEMP 37.1; O2SAT 97; BMI 31.0
[2022-01-19 01:36] VITALS: BP 157/101; PULSE 77; RESP 17; O2SAT 96
--- NOTE | 2022-01-19 01:39 | W.ED.GENADLT ---
HPI - General Adult General: Chief complaint: General Medical Stated complaint: Clogged Drainage Tube Time Seen by Provider: 01/19/22 01:28 History of Present Illness: 62-year-old female comes in for concerns of GABRIELA drain not draining. Patient noticed some blood clots in the tubing and was concerned that it may have clogged. Patient appears nontoxic. Surgical wound is intact. Mild swelling is noted at the surgical wound site. Patient appears in mild pain. Patient had recently had a mass removed from the right side of her neck on 17 January. Her surgeon was Dr. Fletcher. Associated symptoms: Deny chest pain or dyspnea Review of Systems General: Reports: 10 or more systems reviewed and unremarkable except in HPI and below ENMT: Denies: throat pain Card: Denies: chest pain Resp: Denies: dyspnea Skin/Breast: Reports: other (Surgical wound right side of neck); Denies: erythema PFSH ED PFSH: Medical History Atrophic vaginitis Bereavement Loss of parents Bilateral low back pain with right-sided sciatica Bipolar disorder Bipolar disorder, in partial remission, most recent episode depressed Carpal tunnel syndrome, bilateral Chronic back pain Chronic sacroiliac pain Encounter for long-term use of 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 Genital herpes in women GERD (gastroesophageal reflux disease) Hypothyroidism Mixed incontinence Psychiatric care Recurrent UTI Surgical History Bariatric surgery status H/O LEEP S/P dilatation and curettage age of 19 in [place], [place] S/P gastric bypass [facility]. [id number] S/P hysterectomy Dr. Underwood-1997 ovaries remain Family History Father Diabetes Stroke Grandmother Cancer breast-ovarian Brother Diabetes Hypertension Mother Thyroid disease Social History Smoking and tobacco status: former smoker Second hand smoke exposure: No Alcohol intake: never Marital status: History of recent travel: No Physical Exam Const: COMMON NORMALS: alert HENMT: COMMON NORMALS: normocephalic HEAD & SCALP: normocephalic Eye: GENERAL EYE: appearance normal, both eyes and all related structures Neck/C-Spine: OTHER: Intact surgical wound right side of neck, minimal redness and swelling. GABRIELA drain is inserted to wound which is draining clear fluid. Resp: COMMON NORMALS: normal respiratory effort Cardio: COMMON NORMALS: regular rate and regular rhythm RATE: regular rate RHYTHM: regular rhythm Extremity: COMMON NORMALS: normal to inspection Neuro: SENSORIUM/ORIENTATION: Yes alert Skin: WOUNDS: Yes surgical site (Minimal redness and swelling to the site, sutures are intact) Details: other (GABRIELA drain remains intact and draining clear fluid) Course Vital Signs: Vital signs: Vital Signs Temperature 98.7 F 01/19/22 01:31 Pulse Rate 81 01/19/22 01:31 Respiratory Rate 18 01/19/22 01:31 Blood Pressure 157/101 01/19/22 01:31 Pulse Oximetry 97 01/19/22 01:31 Oxygen Delivery Me thod 01/19/22 01:31 MDM - General Adult Medical Decision Making 62-year-old female comes in today for concerns of a clogged GABRIELA drain. On exam patient has an intact surgical wound with a GABRIELA drain. There is some clumped red cells in the drain tube but tube is draining clear serous fluid. There is approximately 5 to 10 mL in the drain in which patient had drained it approximately 1 hour ago. Patient denies any fever. Patient denies any difficulty swallowing. Vital signs are normal except for some mild elevation of blood pressure. Differential diagnosis includes but not limited to surgical wound infection, dislodged surgical drain, worried well. Reassured patient that the site looks well and that there is no signs of a clogged drain at this time. Recommend follow-up with surgeons office in the morning. Return to the ER for high fever or difficulty swallowing. Patient reported understanding. Discharge Plan Discharge Patient Disposition: Home Clinical Impression: Surgical wound present Condition: Stable Prescriptions: No Action (DME) Sole Supports See Rx Instructions .ROUTE .MEDSUPPLY Qty: 1 0RF Rx Instructions: As directed Claritin-D 12 Hour 5-120 mg tablet extended release 12 hr 1 tab PO Q12H PRN (Reason: allergy symptoms) Qty: 30 0RF hydrocodone-acetaminophen 5-325 mg tablet 1 tab PO QID PRN (Reason: pain) 30 Days Qty: 110 0RF Hold Instructions: Resume on 01/24/22. Hold until post surgical narcotics complete Rx Instructions: fill on or after 07/16/21 pantoprazole 40 mg tablet,delayed release (DR/EC) 40 mg PO ONCE Qty: 90 1RF ondansetron 4 mg film 4 mg PO Q8H PRN (Reason: nausea and vomiting) Qty: 30 2RF lamotrigine [Lamictal] 200 mg tablet 200 mg PO DAILY Qty: 30 4RF Rx Instructions: Take one tablet by mouth daily lithium carbonate 300 mg capsule 300 mg PO BID Qty: 60 4RF Rx Instructions: Take one capsule twice per day sertraline [Zoloft] 100 mg tablet 100 mg PO .morning Qty: 30 4RF Rx Instructions: Take one tablet by mouth every morning trazodone 100 mg tablet 200 mg PO .QHS PRN (Reason: sleep) Qty: 60 4RF Rx Instructions: Take one to two tablets at bedtime as needed for sleep ziprasidone HCl [Geodon] 20 mg capsule 20 mg PO BID Qty: 60 4RF Rx Instructions: Take one capsule in morning and evening with 500 javier meals hydrocodone-acetaminophen 5-325 mg tablet 1 tab PO Q6H PRN (Reason: pain) Qty: 25 0RF doxycycline hyclate 100 mg capsule 100 mg PO BID 10 Days Qty: 20 0RF Discharge Orders: Discharge ED (Routine); Ordered 01/19/22 Ordered By: Jonathan Prieto Referrals: Marnie Cardenas MD [Primary Care Provider] - Discharge Diet: Usual diet Discharge Activity: Increase activity as tolerated Patient Instructions: [facility] Drain Care (ED) Activity Restrictions/Additional Instructions: Continue with routine care. Monitor for increased difficulty swallowing or fever. Continue with medications as directed. Continue with drain care as directed. Avoid ice packs to the wound site unless otherwise directed by your surgeon. Follow-up with surgeon at next office visit. You may contact his office to see if there is someone alterations sewer that you can discuss your concerns with further. Return to ER for fever or new concerns. Coding Level of Care Code ED Setter Helper for Shaka Holbrook
[2022-01-19 01:42] VITALS: BP 157/101; PULSE 77; RESP 17; O2SAT 96
== END 2022-01-19 01:57 | disposition home or self-care (01) ==
PROVIDERS: Emergency Provider Nurse Practitioner Family; PCP Family Medicine
DX: Z03.89 Encounter for observation for other suspected diseases and conditions ruled out (principal); Z87.891 Personal history of nicotine dependence
CPT/HCPCS: 99281

== ENCOUNTER 2022-01-26 16:20 | Outpatient (CLI) | payer MEDICARE, MEDICAID, SELFPAY ==
--- NOTE | 2022-01-26 16:44 | XR_ITS ---
WS: [id number] LEFT KNEE: 3 VIEW(S) TECHNIQUE: AP, oblique(s) and lateral. Weightbearing. HISTORY: KNEE JOINT PAIN COMPARISON: 08/17/2020 No fracture or dislocation. Mild tricompartment joint space narrowing. Progression of subchondral cystic changes along the analytics developer ior surface of the patella since the prior study. No joint effusion. No soft tissue abnormality. XR/XR knee LT 3V* [id number] IMPRESSION: 1. Significant subchondral cystic changes involving the posterior surface of t he patella. 2. Mild tricompartment joint space narrowing.
--- NOTE | 2022-01-26 16:44 | XR_ITS ---
WS: [id number] Right knee, 3 views weightbearing, 01/26/2022 Clinical Data: KNEE JOINT PAIN Comparison: Right knee, 07/21/2020. Findings: No fractures or dislocations are seen. The joint spaces are normal. The patella is intact. The soft t issues are unremarkable. There is a small spur of the medial femoral condyle and the posterior superior patella. XR/XR knee RT 3V* [id number] Impression: Minimal osteoarthritis of the right knee. Kellgren-Renard Classification: grade 1 (doubtful): doubtful joint space narr owing and possible osteophytic lipping
== END 2022-01-26 16:21 | disposition home or self-care (01) ==
PROVIDERS: PCP Family Medicine; Visit Provider Family Medicine
DX: M17.11 Unilateral primary osteoarthritis, right knee (principal); M25.562 Pain in left knee; M25.561 Pain in right knee
CPT/HCPCS: 73562

== ENCOUNTER → 2022-02-06 13:37 | Outpatient (BNVA) | payer MEDICARE, MEDICAID, SELFPAY | PROVIDERS: PCP Family Medicine; Visit Provider Podiatrist Foot & Ankle Surgery | DX: M20.22 Hallux rigidus, left foot (principal) | CPT/HCPCS: 99214; 99215 ==

== ENCOUNTER → 2022-02-07 10:12 | Outpatient (BNVA) | payer MEDICARE, MEDICAID, SELFPAY | PROVIDERS: PCP Family Medicine; Referring Provider Family Medicine; Visit Provider Orthopaedic Surgery | DX: M17.0 Bilateral primary osteoarthritis of knee (principal) | CPT/HCPCS: 20610; 99203; J0702; J3490 ==

== ENCOUNTER 2022-02-17 09:09 | Day surgery (SDC) | payer MEDICARE, MEDICAID, SELFPAY ==
[2022-02-17 09:34] VITALS: BP 141/95; PULSE 65; RESP 17; TEMP 36.6; O2SAT 98
[2022-02-17] MEDS: sodium chloride 0.9% 1,000 ML 30 ML IV (10:00)
--- NOTE | 2022-02-17 11:31 | W.PM.OPSUD ---
Surgery/Procedure H&P Update DATE OF PROCEDURE: February 17, 2022 DATE H&P PERFORMED: 02/06/22 CHANGES TO PREVIOUS DOCUMENTATION: none PREOP DIAGNOSIS: Left foot hallux rigidus PLANNED PROCEDURE: Operation Date: 02/17/22 12:30 Proposed Procedures p Left foot cheilectomy 08094,M20.22(Left) - Montana Sidhu DPM
--- NOTE | 2022-02-17 11:34 | P.OP_ITS ---
Operative Report Date of procedure: February 17, 2022 Pre-op diagnosis: Left foot hallux rigidus Post-op diagnosis: Left hallux rigidus Procedure done: Left cheilectomy CPT code 14883 Implants: 3-0 Vicryl, 5-0 Monocryl Surgeon: Montana Sidhu D.P.M. Pediatric Nurse Practitioner: Adrianne Estimated blood loss: 5 18 Brief History: Pleasant 62-year-old female presents with left hallux rigidus failed conservative treatment consisting of supportive shoes, orthotics, stretching, activity modifications, anti-inflammatories and cortisone injection.? She has pain with everyday activities would like to discuss further treatments.? Discussed joint sparing and joint destructive procedures.? Cheilectomy versus ar throdesis versus implant.? Patient would like to proceed with cheilectomy.? I reviewed at length with the patient, the risks, potential complications, benefits, alternatives, expectations, and typical outcomes associated with the surgery. The risks and potential complications were explained in detail, including but not limited to infection, wound dehiscence or soft tissue complications, bleeding and hematoma, chronic edema, neuritis or nerve damage producing numbness or chronic pain, CRPS, failure to relieve pain or worsening pain, thick / painful / unsightly scar, limited motion / stiffness, malposition, delayed union, malunion, or nonunion, fracture, reaction to implants, anesthetic complications, venous thromboembolism, and deformity recurrence.? I discussed the notion of no regrets with the patient as it pertains to complications and outcomes. The patient seemed to understand the nature of the proposed care and required convalescence. They asked appropriate questions, answered to their satisfaction. They are aware no guarantees can be made as to a satisfactory outcome and they understand there may be other possible unforeseen complications or outcomes not listed here that will be treated accordingly if they arise. There were no written or implied guarantees given to the patient. They gave informed consent to proceed.? Procedure: Under mild sedation the patient was brought to the operating room and placed on the operating table in supine position. A timeout was performed. Anesthesia was then administered by the anesthesia service. Local anesthesia injected by myself consisting of 30 cc of one-to-one mixture 1% lidocaine and 0.5% Marcaine plain and a left Goins block fashion. Well-padded pneumatic tourniquet applied to the left ankle. The left lower extremity was then scrubbed, prepped and draped utilizing normal aseptic technique. Left foot was exanguinated with an Esmarch bandage and the tourniquet inflated to 250 mmHg. Attention was directed to the dorsal medial aspect of the left first metatarsal phalangeal joint where a linear longitudinal incision was made through skin with a #15 blade medial and parallel to the extensor houses longus tendon. Dissection was carried down through subcutaneous tissue to the layer of joint capsule and periosteum utilizing sharp and blunt technique. Care was taken to retract and preserve neurovascular and tendinous structures. All bleeders were ligated and cauterized as necessary. A linear capsulotomy was performed in the head of the first metatarsal was contoured back to its normal anatomy utilizing a sagittal saw, rongeur and hand rasp. Attention was then directed to the base of the proximal phalanx which was also contoured back to his normal anatomy utilizing a rongeur and a hand rasp. Smooth range of motion within the operative setting was performed and dorsiflexion was at 50 degrees without crepitus. The incision was flushed with copious amounts of sterile skin solution followed by closure with capsular structure reapproximated utilizing 3- 0 Vicryl. Subcutaneous tissue reapproximated utilizing 4-0 Vicryl and skin reapproximated with 5-0 Monocryl, benzoin and Steris. The incision was dressed with Adaptic, sterile 4 x 4, Kerlix and Krishna wrap followed by application of cam boot to the left lower extremity. Tourniquet was deflated and a prompt hyperemic response is noted to the distal digits of the left foot. Patient tolerated the procedure and anesthesia well and was transferred to the PACU with vital signs stable and vascular status intact. Following a period of postop monitoring she will be discharged home.
[2022-02-17] MEDS: clindamycin 600 MG/50 ML PREMIX 100 MG IV (11:39)
--- NOTE | 2022-02-17 12:10 | P.ANESASSM_ITS ---
Pre-Anesthetic Assessment Height/Weight: Height 1.63 m Weight 80.739 kg Temp Pulse Resp BP Pulse Ox O2 Del Method 97.8 F 65 17 141/95 98 02/17/22 09:34 02/17/22 09:34 02/17/22 09:34 02/17/22 09:34 02/17/22 09:34 02/17/22 09:34 Preop Diagnosis: Left foot hallux rigidus Operation Date: 02/17/22 12:30 Proposed Procedures p Left foot cheilectomy 65883,M20.22(Left) - Montana Sidhu DPM Familial anesthetic complications: none Was Beta Alfie taken within 24 hours: N/A Last intake: Intake Last Liquid Date 02/17/22 Last Liquid Time 00:00 Last Solid Date 02/17/22 Last Solid Time 00:00 Social Tobacco and No alcohol Exam alert, oriented x 3 and regular rate & rhythm Airway Submandibular: within normal limits Cervical ROM: within normal limits Mallampati: Class II Dentition: false Pulmonary Chronic Obstructive Pulmonary Disease GI Gastroesophageal Reflux Disease Musc/skel Lower Back Pain and Osteoarthritis/DJD chronic opioid Neuropsych Bipolar Anesthetic Plan ASA status: 2 Anesthesia: MAC Medications/Allergies Home Medications Medication Instructions Recorded Confirmed Last Taken Type Sole Supports #1 ea 04/05/20 02/07/22 Unknown Rx loratadine 5 mg-pseudoephedrine ER 1 tab PO Q12H PRN allergy symptoms 08/23/20 02/16/22 01/15/22 Rx 120 mg tablet,extended #30 tabs release,12hr (Claritin-D 12 Hour) ondansetron 4 mg oral soluble film 4 mg PO Q8H PRN nausea and 10/06/21 02/16/22 01/15/22 Rx vomiting #30 ea lamotrigine 200 mg tablet 200 mg PO DAILY #30 tabs 12/09/21 02/17/22 02/16/22 Rx (Lamictal) trazodone 100 mg tablet 200 mg PO .QHS PRN sleep #60 tabs 12/09/21 02/16/22 01/15/22 Rx ziprasidone HCl 20 mg capsule 20 mg PO BID #60 caps 12/09/21 02/17/22 02/16/22 Rx (Geodon) sertraline 100 mg tablet (Zoloft) 100 mg PO .morning anxiety 02/16/22 02/17/22 02/16/22 History hydrocodone 10 mg-acetaminophen 1 tab PO Q6H PRN pain 7 days #28 02/17/22 Unknown Rx 325 mg tablet tabs lithium carbonate 300 mg capsule 300 mg PO BEDTIME 02/17/22 02/17/22 02/16/22 History pantoprazole 40 mg tablet,delayed 40 mg PO DAILY 02/17/22 02/17/22 02/16/22 History release Allergies Allergy/AdvReac Type Severity Reaction Status Date / Time propoxyphene Allergy Severe hives, Verified 02/17/22 09:27 [From Darvocet-N] tongue swelling Sulfa (Sulfonamide Allergy Severe ALGY-Swell Verified 02/17/22 09:27 Antibiotics) Lip/Tongue/Throat cefuroxime [From Ceftin] Allergy unknown Verified 02/17/22 09:27 divalproex sodium Allergy Unknown Verified 02/17/22 09:27 [From Depakote] Current Medications Generic Name Dose Route Start Last Admin Trade Name Freq PRN Reason Stop Dose Admin Bupivacaine HCl 30 ml 02/17/22 12:07 02/17/22 11:55 Bupivacaine 0.25% Inj 30 Ml INJECTION 02/17/22 12:08 30 ml ONCE ONE Administration Bupivacaine Liposome 133 mg 02/17/22 12:08 02/17/22 11:55 Bupivacaine Liposome 13.3 Mg/Ml Sdv 10 Ml INFILTRATI 02/17/22 12:09 133 mg ONCE ONE Administration Sodium Chloride 1,000 mls @ 30 mls/hr 02/17/22 09:30 02/17/22 10:00 Sodium Chloride 0.9% IV 02/18/22 09:29 30 mls/hr .Q24H MIGUEL ANGEL Administration PFSH Anesthesia Medical History Atrophic vaginitis Bereavement Loss of parents Bilateral low back pain with right-sided sciatica Bipolar disorder Bipolar disorder, in partial remission, most recent episode depressed Carpal tunnel syndrome, bilateral Chronic back pain Chronic sacroiliac pain Encounter for long-term use of 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 Genital herpes in women GERD (gastroesophageal reflux disease) Hypothyroidism Mixed incontinence Psychiatric care Recurrent UTI Surgical History Bariatric surgery status H/O LEEP S/P dilatation and curettage age of 19 in [place] S/P gastric bypass [facility]. [id number] S/P hysterectomy Dr. Underwood-1997 ovaries remain Family History Father Diabetes Stroke Grandmother Cancer breast-ovarian Brother Diabetes Hypertension Mother Thyroid disease Social History Smoking and tobacco status: former smoker Second hand smoke exposure: No Alcohol intake: never Marital status: History of recent travel: No Data Anesthesia Cardiac Studies: No Data to Display
[2022-02-17 12:26] VITALS: BP 104/73; PULSE 75; RESP 23; TEMP 36.4; O2SAT 100
[2022-02-17 12:30] VITALS: BP 118/83; PULSE 73; RESP 17; O2SAT 99
[2022-02-17 12:35] VITALS: BP 129/83; PULSE 73; RESP 18; O2SAT 97
[2022-02-17 12:41] VITALS: BP 143/89; PULSE 60; RESP 17; TEMP 36.6; O2SAT 98
[2022-02-17 12:56] VITALS: BP 138/86; PULSE 72; RESP 17; O2SAT 97
--- NOTE | 2022-02-17 14:19 | ANE.PACU2 ---
Inpatient post-anesthesia follow up: Airway intact: Yes Vital signs: Temperature 97.8 F Pulse Rate 72 Respiratory Rate 17 Blood Pressure 138/86 Pulse Oximetry 97 Oxygen Delivery Me thod Room Air Oxygen Flow Rate 6 Fraction of Inspir ed Oxygen Hydration adequate: Yes Nausea and vomiting: No Pain level: 1 Mental status: Baseline
== END 2022-02-17 13:20 | disposition home or self-care (01) ==
PROVIDERS: Visit Provider Podiatrist Foot & Ankle Surgery
PROC: (CPT 28289; principal; 2022-02-17 12:20)
DX: M20.22 Hallux rigidus, left foot (principal); J44.9 Chronic obstructive pulmonary disease, unspecified; K21.9 Gastro-esophageal reflux disease without esophagitis; Z79.891 Long term (current) use of 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; G89.29 Other chronic pain; E03.9 Hypothyroidism, unspecified; Z87.891 Personal history of nicotine dependence
CPT/HCPCS: 28289; C9290; J2250; J2704; J3490; J7030

== ENCOUNTER → 2022-02-22 10:14 | Outpatient (BNVA) | payer MEDICARE, MEDICAID, OTHER, SELFPAY | PROVIDERS: Visit Provider Nurse Practitioner Psychiatric/Mental Health | DX: F31.75 Bipolar disorder, in partial remission, most recent episode depressed (principal); Z63.4 Disappearance and death of family member; F60.3 Borderline personality disorder; Z79.899 Other long term (current) drug therapy | CPT/HCPCS: 80053; 80061; 80178; 83036 ==

== ENCOUNTER → 2022-03-02 12:54 | Outpatient (BNVA) | payer MEDICARE, MEDICAID, SELFPAY | PROVIDERS: Visit Provider Podiatrist Foot & Ankle Surgery | DX: M20.22 Hallux rigidus, left foot (principal) | CPT/HCPCS: 99024 ==

== ENCOUNTER → 2022-03-09 13:36 | Outpatient (BNVA) | payer MEDICARE, MEDICAID, SELFPAY | PROVIDERS: Visit Provider Podiatrist Foot & Ankle Surgery | DX: Z98.890 Other specified postprocedural states (principal); S99.922A Unspecified injury of left foot, initial encounter; X58.XXXA Exposure to other specified factors, initial encounter; M20.22 Hallux rigidus, left foot | CPT/HCPCS: 73630; 99024 ==

== ENCOUNTER → 2022-03-31 14:05 | Outpatient (BNVA) | payer MEDICARE, MEDICAID, OTHER, SELFPAY | PROVIDERS: Visit Provider Nurse Practitioner Psychiatric/Mental Health | DX: Z03.89 Encounter for observation for other suspected diseases and conditions ruled out (principal); Z79.899 Other long term (current) drug therapy | CPT/HCPCS: 80053; 80178; 80306; 81001 ==

== ENCOUNTER 2022-04-17 08:50 | Emergency (ER) | payer MEDICARE, MEDICAID, SELFPAY ==
[2022-04-17 08:52] VITALS: BP 143/99; PULSE 94; RESP 16; TEMP 36.6; O2SAT 99; BMI 30.5
--- NOTE | 2022-04-17 08:57 | ECG_ITS ---
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 Measurements Intervals [place] Rate: 85 P: 27 WV: 136 QRS: -21 QRSD: 87 T: 30 QT: 333 QTc: 396 Interpretive Statements SINUS RHYTHM LOW QRS VOLTAGE IN PRECORDIAL LEADS [QRS DEFLECTION < 1.0 mV IN CHEST LEADS] POSSIBLE ANTERIOR MYOCARDIAL INFARCTION , PROBABLY OLD [30 ms Q WAVE IN V3/V4, OR R < 0.2 mV IN V4] Compared to ECG 01/10/2022 11:48:05 No significant changes Electronically Signed On 04-17-2022 14:50:10 SOFTWARE FIRMWARE ENGINEER by Angela Spaulding M.D. [id number]
== END 2022-04-17 10:04 | disposition left against medical advice (07) ==
PROVIDERS: Emergency Provider Family Medicine; PCP Family Medicine
DX: Z53.21 Procedure and treatment not carried out due to patient leaving prior to being seen by health care provider (principal); R07.9 Chest pain, unspecified
CPT/HCPCS: 93005

== ENCOUNTER → 2022-05-18 14:47 | Outpatient (BNVA) | payer MEDICARE, MEDICAID, SELFPAY | PROVIDERS: PCP Family Medicine; Visit Provider Internal Medicine Cardiovascular Disease | DX: R07.9 Chest pain, unspecified (principal); R00.2 Palpitations; R06.02 Shortness of breath; E03.9 Hypothyroidism, unspecified; K21.9 Gastro-esophageal reflux disease without esophagitis; G89.29 Other chronic pain; M54.9 Dorsalgia, unspecified; Z79.891 Long term (current) use of 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 | CPT/HCPCS: 93225; 99214 ==

== ENCOUNTER → 2022-05-30 13:02 | Outpatient (BNVA) | payer MEDICARE, MEDICAID, SELFPAY | PROVIDERS: PCP Family Medicine; Visit Provider Orthopaedic Surgery | DX: M17.0 Bilateral primary osteoarthritis of knee (principal) | CPT/HCPCS: 20610; 99212; J0702; J3490 ==

== ENCOUNTER → 2022-07-17 10:59 | Outpatient (BNVA) | payer MEDICARE, MEDICAID, SELFPAY | PROVIDERS: PCP Family Medicine; Visit Provider Podiatrist Foot & Ankle Surgery | DX: M20.22 Hallux rigidus, left foot (principal); M21.611 Bunion of right foot | CPT/HCPCS: 73630; 99214 ==

== ENCOUNTER → 2022-08-07 15:39 | Outpatient (BNVA) | payer MEDICARE, MEDICAID, SELFPAY | PROVIDERS: PCP Family Medicine; Visit Provider Podiatrist Foot & Ankle Surgery | DX: M21.611 Bunion of right foot (principal); M20.22 Hallux rigidus, left foot | CPT/HCPCS: 99213 ==

== ENCOUNTER 2022-08-11 06:18 | Day surgery (SDC) | payer MEDICARE, MEDICAID, SELFPAY ==
[2022-08-10 10:22] VITALS: BMI 29.8
--- NOTE | 2022-08-11 06:22 | W.PM.OPSUD ---
Surgery/Procedure H&P Update DATE OF PROCEDURE: August 11, 2022 DATE H&P PERFORMED: 02/06/22 CHANGES TO PREVIOUS DOCUMENTATION: None PREOP DIAGNOSIS: Left foot hallux rigidus PLANNED PROCEDURE: Operation Date: 08/11/22 08:00 Proposed Procedures p Left first metatarsal phalangeal joint fusion and cortisone injection right great toe joint 48352 and 85685,M20.22,?M20.21(Left) - Montana Sidhu DPM s Cortisone Injection(Right) - Montana Sidhu DPM
--- NOTE | 2022-08-11 06:23 | PM.OP ---
Operative Report Date of procedure: August 11, 2022 Pre-op diagnosis: Preop Diagnosis Left foot hallux rigidus
[2022-08-11 06:48] VITALS: BP 95/56; PULSE 53; RESP 18; TEMP 36.2; O2SAT 100
[2022-08-11] MEDS: sodium chloride 0.9% 1,000 ML 30 ML IV (06:54)
--- NOTE | 2022-08-11 07:19 | ANES.PREANE2 ---
Pre-Anesthetic Assessment Height/Weight: Height 1.63 m Weight 78.925 kg Temp Pulse Resp BP Pulse Ox O2 Del Method 97.1 F L 53 L 18 95/56 100 08/11/22 06:48 08/11/22 06:48 08/11/22 06:48 08/11/22 06:48 08/11/22 06:48 08/11/22 06:48 Preop Diagnosis: Right hallux rigidus Operation Date: 08/11/22 08:00 Proposed Procedures p Left first metatarsal phalangeal joint fusion and cortisone injection right great toe joint 89217 and 54828,M20.22,?M20.21(Left) - Montana Sidhu DPM s Cortisone Injection(Right) - Montana Sidhu DPM Familial anesthetic complications: None Was Beta Alfie taken within 24 hours: Yes Was Clonidine taken within 24 hours: N/A Last intake: Intake Last Liquid Date 08/10/22 Last Liquid Time 23:00 Last Solid Date 08/10/22 Last Solid Time 23:00 Social Tobacco and No alcohol vapes Exam alert, oriented x 3, clear to auscultation bilaterally and regular rate & rhythm Airway Mallampati: Class II Dentition: false CV/HEM Stable Angina and Arrythmia (PVCs) 04/17/11 TREADMILL STRESS TEST INTERPRETATION: 1. Patient exercised for 6 minutes and 30 seconds on a Carrillo protocol. She reached the maximum heart rate of 152 beats per minute, which is 89% of her maximum predicted heart rate. The test was stopped due to fatigue. 2. Baseline electrocardiogram reveals sinus rhythm with poor R-wave progression and nonspecific flattening of the ST segment. 3. With exercise, there were no ST segment changes to suggest ischemia. 4. The resting blood pressure was 102/77. The maximum blood pressure was 134/94. 5. At maximum exercise, the patient achieved 7 METs with a double product of 17,780. 6. The patient experienced no chest pain or rhythm disturbances during the examination. CONCLUSION: 1. Normal exercise treadmill test. 2. Below average exercise capacity for age. 3. Normal blood pressure response to exercise. 07/26/10 ECHO CONCLUSIONS: 1.? The left ventricle is normal in size with normal wall thickness, normal contractility, ejection fraction is 57%.? Mitral inflow velocity and tissue Doppler together demonstrate left atrial pressure estimated at around 12.? The left atrium is normal in size.? The diastolic relaxation is borderline normal. 2.? Right ventricular size appears top normal to minimally enlarged. There is mild generalized hypokinesia of the right ventricle.? There is mild tricuspid insufficiency.? The right ventricular systolic pressure is estimated at about 28.? The right atrial pressure is estimated about 5 based on the inferior vena cava.? 3.? The aortic root is normal size.? The aortic valve is trileaflet with normal structure.? The aortic valve Doppler is normal. 4.? The mitral valve is structurally normal on 2D exam.? There is no mitral insufficiency. 5.? There is no pericardial effusion, vegetation, mass or thrombus seen. 6.? The interatrial septum is unremarkable. 11/02/20 EKG Sinus rhythm, left axis deviation. Low QRS voltage in precordial leads. Borderline LVH. Possible old anterior AR. No change when compared to EKG from a week ago. GI Gastroesophageal Reflux Disease Metabolic Thyroid Disease Anesthetic Plan ASA status: 2 Anesthesia: MAC Risk of > 500 ml blood loss (7ml/kg in children): No Other Pertinent Information Patient complaining of R sternal chest pain and low blood pressure this morning. Telling me that this past month she has been more fatigued and cant do what she normally does, runs out of energy. Has felt nauseated and felt like passing out several times in the past month. Was supposed to obtain stress test per Dr. Hess and did not keep her appointment d/t illness. EKG and cardiac enzymes obtained and patient sent to ER for further management after she complained that the chest pain was now radiating to her back. Surgery to be re-scheduled Medications/Allergies Home Medications Medication Instructions Recorded Confirmed Last Taken Type lamotrigine 200 mg tablet 200 mg PO .evening #90 tabs 02/22/22 08/10/22 08/10/22 Rx (Lamictal) sertraline 100 mg tablet (Zoloft) 100 mg PO .morning #90 tabs 02/22/22 08/10/22 08/10/22 Rx trazodone 100 mg tablet 200 mg PO .QHS PRN sleep #180 tabs 02/22/22 08/10/22 08/10/22 Rx ziprasidone HCl 20 mg capsule 20 mg PO .evening #90 caps 05/24/22 08/10/22 08/10/22 Rx (Geodon) hydroxyzine pamoate 25 mg capsule 25 mg PO BID PRN anxiety #30 caps 07/10/22 08/10/22 1 Day Ago Rx (Vistaril) ~08/09/22 lithium carbonate 300 mg capsule 300 mg PO BID #90 caps 07/10/22 08/10/22 08/10/22 Rx hydrocodone 5 mg-acetaminophen 325 1 tab PO DAILY 08/10/22 08/10/22 1 Day Ago History mg tablet ~08/09/22 propranolol 10 mg tablet 10 mg PO DAILY 08/10/22 08/10/22 08/10/22 History Allergies Allergy/AdvReac Type Severity Reaction Status Date / Time propoxyphene Allergy Severe hives, Verified 08/10/22 10:17 [From Darvocet-N] tongue swelling Sulfa (Sulfonamide Allergy Severe ALGY-Swell Verified 08/10/22 10:17 Antibiotics) Lip/Tongue/Throat cefuroxime [From Ceftin] Allergy unknown Verified 08/10/22 10:17 divalproex sodium Allergy Unknown Verified 08/10/22 10:17 [From Depakote] Current Medications Generic Name Dose Route Start Last Admin Trade Name Freq PRN Reason Stop Dose Admin Sodium Chloride 1,000 mls @ 30 mls/hr 08/11/22 06:30 08/11/22 06:54 Sodium Chloride 0.9% IV 08/12/22 06:29 30 mls/hr .Q24H MIGUEL ANGEL Administration PFSH Anesthesia Medical History Atrophic vaginitis Bereavement Loss of parents Bilateral low back pain with right-sided sciatica Bipolar disorder Bipolar I disorder, most recent episode mixed, severe without psychotic features with anxious distress Carpal tunnel syndrome, bilateral Chronic back pain Chronic sacroiliac pain Encounter for long-term use of 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 Genital herpes in women GERD (gastroesophageal reflux disease) Hypothyroidism Mixed incontinence Post-traumatic stress disorder, chronic Psychiatric care Recurrent UTI Surgical History Bariatric surgery status H/O LEEP S/P dilatation and curettage age of 19 in [place] S/P gastric bypass [facility]. [id number] S/P hysterectomy Dr. Underwood-1997 ovaries remain Family History Father Diabetes Stroke Grandmother Cancer breast-ovarian Brother Diabetes Hypertension Mother Thyroid disease Social History Smoking and tobacco status: former smoker Quit status (tobacco): has tried quititng Number of times tried to quit tobacco: 2 Second hand smoke exposure: No Smoking risk assessment/counseling performed?: No Alcohol intake: former Desire information about alcohol rehabilitation?: No Counseling given: No Desire information about substance/drug rehabilitation?: No Counseling given: No Marital status: Data Anesthesia Cardiac Studies: Holter Monitor 05/18/22
--- NOTE | 2022-08-11 07:24 | ECG_ITS ---
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 Measurements Intervals [place] Rate: 55 P: -6 [place]: 172 QRS: -24 QRSD: 94 T: -9 QT: 415 QTc: 397 Interpretive Statements SINUS BRADYCARDIA LOW QRS VOLTAGE IN PRECORDIAL LEADS [QRS DEFLECTION < 1.0 mV IN CHEST LEADS] MODERATE VOLTAGE CRITERIA FOR LVH, CONSIDER NORMAL VARIANT [MEETS CRITERIA IN ONE OF: R(aVL), S(V1), R(V5), R(V5/V6)+S(V1)] POSSIBLE ANTERIOR MYOCARDIAL INFARCTION , OF INDETERMINATE AGE [30 ms Q WAVE IN V3/V4, OR R < 0.2 mV IN V4] Compared to ECG 04/17/2022 09:02:31 Sinus rhythm no longer present Myocardial infarct finding still present Electronically Signed On 08-11-2022 23:13:50 CDT by Angela Spaulding M.D. [id number]
[2022-08-11 08:04] LABS: Troponin T (5th) Once 6 ng/L (0-10)
--- NOTE | 2022-08-11 08:08 | SUR.PREOP ---
patient d/c from pre op and taken to ER for chest pain. pt taken in wheelchair to er16. report given to ely GONZALEZ. patient awake and alert, calm, on room air with sat at 99%. patient did not appear in distress.
== END 2022-08-11 08:20 ==
PROVIDERS: Anesthesiology; PCP Family Medicine; Visit Provider Podiatrist Foot & Ankle Surgery
PROC: (CPT 28750; principal; 2022-08-11 07:50)
PROC: (CPT 96372; 2022-08-11 07:50)
DX: M20.22 Hallux rigidus, left foot (principal); Z53.8 Procedure and treatment not carried out for other reasons
CPT/HCPCS: 71045; 80053; 83690; 84484; 85025; 93005; 99285; J1100; J2250; J2405; J2704; J3010; J7030

== ENCOUNTER 2022-08-11 07:55 | Emergency (ER) | payer MEDICARE, MEDICAID, SELFPAY ==
[2022-08-11] VITALS (53 sets, daily range): BP systolic 110–169; BP diastolic 56–112; PULSE 51–92; RESP 14–26; TEMP 36.6; O2SAT 84–100; BMI 29.8
--- NOTE | 2022-08-11 08:03 | XR_ITS ---
WS: [id number] EXAMINATION: XR chest 1V portable [id number] REASON FOR EXAM: cp COMPARISON: 09/24/2015 ORDER DATE: 08/11/2022 8:03 AM TECHNIQUE: A single, portable frontal chest x-ray was obtained. X-RAY FINDINGS: The lungs are clear. Pleural spaces are clear. No pleural effusions or pneumothorax. Cardiomediastinal silhouette is normal. No evidence for pulmonary edema. Soft tissue and osseous structures are unremarkable. No tubes or lines are present. XR/XR chest 1V portable [id number] IMPRESSION: Unremarkable frontal portable chest x-ray.
--- NOTE | 2022-08-11 08:06 | ED_ITS ---
Documented by User: Jane Broussard MD 08/11/22 08:08 HPI - Chest Pain General: Chief Complaint: Chest Pain Stated Complaint: CP brought frot out patient surgery Time Seen by Provider: 08/11/22 08:02 Source: patient Mode of arrival: ambulatory Limitations: no limitations History of Present Illness: 62-year-old female who was checking in for a toe surgery this morning at outpatient surgery started having some chest pain she states she has been having pain off and on over the last week states been a sharp pain in the center of her chest denies any radiation states pain is c urrently 3 out of 10 she denies any shortness of breath denies any diaphoresis denies any worsening improving factors. Associated symptoms: Deny abdominal pain, dyspnea, fever(s), nausea or vomiting Review of Systems Const: Denies: fever(s), chills, body aches or change in appetite Eyes: Denies: blurry vision or eye discomfort ENMT: Denies: throat pain or dental pain Card: Reports: chest pain Resp: Denies: dyspnea GI: Denies: abdominal pain, nausea, vomiting or diarrhea : Denies: dysuria Musc: Denies: neck pain or back pain Skin/Breast: Denies: rash Neuro: Denies: headache(s) Psych: Denies: depression Juancarlos/Lymph: Denies: easy bruising All/Imm: Denies: urticaria PFSH ED PFSH: Medical History Atrophic vaginitis Bereavement Loss of parents Bilateral low back pain with right-sided sciatica Bipolar disorder Bipolar I disorder, most recent episode mixed, severe without psychotic features with anxious distress Carpal tunnel syndrome, bilateral Chronic back pain Chronic sacroiliac pain Encounter for long-term use of 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 Genital herpes in women GERD (gastroesophageal reflux disease) Hypothyroidism Mixed incontinence Post-traumatic stress disorder, chronic Psychiatric care Recurrent UTI Surgical History Bariatric surgery status H/O LEEP S/P dilatation and curettage age of 19 in [place] S/P gastric bypass [facility]. [id number] S/P hysterectomy Dr. Underwood-1997 ovaries remain Family History Father Diabetes Stroke Grandmother Cancer breast-ovarian Brother Diabetes Hypertension Mother Thyroid disease Social History Smoking and tobacco status: former smoker Quit status (tobacco): has tried quititng Number of times tried to quit tobacco: 2 Second hand smoke exposure: No Smoking risk assessment/counseling performed?: No Alcohol intake: former Desire information about alcohol rehabilitation?: No Counseling given: No Desire information about substance/drug rehabilitation?: No Counseling given: No Marital status: Physical Exam Const: COMMON NORMALS: no acute distress, patient oriented x3 and healthy appearing HENMT: COMMON NORMALS: normocephalic and atraumatic HEAD & SCALP: normocephalic and atraumatic Eye: COMMON NORMALS: Equal, round and reactive pupils present and EOMs intact bilaterally PUPIL: Yes Equal, round and reactive pupils present Neck/C-Spine: COMMON NORMALS: full ROM and supple Chest: COMMONS NORMALS: normal inspection of the chest and normal palpation of entire chest wall Resp: COMMON NORMALS: normal respiratory effort, No retractions, No use of accessory muscles and clear to auscultation bilaterally AUSCULTATION: clear to auscultation bilaterally Cardio: COMMON NORMALS: regular rate, regular rhythm and No murmurs present (Cardio) RATE: regular rate RHYTHM: regular rhythm GI: COMMON NORMALS: Normal to inspection, nondistended, normoactive bowel filemon nds present, Soft to palpation, non-tender and no masses PALPATION: Yes Soft to palpation Extremity: COMMON NORMALS: normal to inspection and full ROM Neuro: COMMON NORMALS: patient oriented x3, moves all extremities and no focal motor deficits Psych: COMMON NORMALS: mental status grossly normal, Normal thought process present and cooperative THOUGHT PROCESS: Normal thought process present Skin: COMMON NORMALS: no rashes or lesions noted and no wounds GENERAL SKIN EXAM: no rashes or lesions noted Course Vital Signs: Vital signs: Vital Signs Temperature 97.9 F 08/11/22 08:11 Pulse Rate 92 08/11/22 12:43 Respiratory Rate 16 08/11/22 12:43 Blood Pressure 169/112 08/11/22 12:43 Pulse Oximetry 94 08/11/22 12:43 Oxygen Delivery Me thod 08/11/22 08:25 MDM - Chest Pain Lab Data 08/11/22 08:26 08/11/22 08:26 Radiology Impressions Chest X-Ray 08/11/22 08:03 IMPRESSION: Unremarkable frontal portable chest x-ray. Laboratory Results WBC 7.1 10^3/uL (4.0-10.0) 08/11/22 08:26 RBC 4.60 10^6/uL (4.1-5.3) 08/11/22 08:26 Hgb 13.5 g/dL (11.5-15.3) 08/11/22 08:26 Hct 41.2 % (37.0-47.0) 08/11/22 08:26 MCV 89.6 fl (81-99) 08/11/22 08:26 MCH 29.3 pg (28.0-34.0) 08/11/22 08:26 MCHC 32.8 g/dL (30.0-36.0) 08/11/22 08:26 RDW 13.1 % (12.1-15.1) 08/11/22 08:26 Plt Count 320 10^3/cmm (130-400) 08/11/22 08:26 MPV 10.4 fL (7.4-10.4) 08/11/22 08:26 Neut % (Auto) 54.5 % 08/11/22 08:26 Lymph % (Auto) 33.9 % 08/11/22 08:26 Snyder % (Auto) 6.8 % 08/11/22 08:26 Eos % (Auto) 3.1 % 08/11/22 08:26 Baso % (Auto) 1.3 % 08/11/22 08:26 Neut # (Auto) 3.87 10^3/uL (1.8-7.7) 08/11/22 08:26 Lymph # (Auto) 2.4 10^3/uL (0.8-4.8) 08/11/22 08:26 Snyder # (Auto) 0.5 10^3/uL (0.2-0.9) 08/11/22 08:26 Eos # (Auto) 0.2 10^3/uL (0.0-0.8) 08/11/22 08:26 Baso # (Auto) 0.1 10^3/uL (0.0-0.1) 08/11/22 08:26 Nucleated RBC % (auto) 0 % 08/11/22 08:26 Nucleated RBCs # 0.0 /100WBC 08/11/22 08:26 Sodium 143 mmol/L (136-145) 08/11/22 08:26 Potassium 4.0 mmol/L (3.5-5.1) 08/11/22 08:26 Chloride 109 mmol/L (98-107) H 08/11/22 08:26 Carbon Dioxide 24 mmol/L (22-29) 08/11/22 08:26 Anion Gap 14.0 (5-19) 08/11/22 08:26 BUN 15 mg/dL (8-23) 08/11/22 08:26 Creatinine 1.1 mg/dL (0.5-0.9) H 08/11/22 08:26 GFR Calculation 50.7 mL/min (90-130) L 08/11/22 08:26 Glucose 79 mg/dL (65-115) 08/11/22 08:26 Calculated Osmolality 296 mOsm/kg (285-295) H 08/11/22 08:26 Calcium 9.6 mg/dL (8.5-10.5) 08/11/22 08:26 Total Bilirubin 0.3 mg/dL (0.15-1.2) 08/11/22 08:26 AST 15 U/L (0-32) 08/11/22 08:26 ALT 6 U/L (0-33) 08/11/22 08:26 Alkaline Phosphatase 123 U/L (35-105) H 08/11/22 08:26 Troponin T Baseline 6 ng/L (0-10) 08/11/22 08:26 Troponin T 120 Minute 6.00 ng/L (0-10) 08/11/22 10:37 Delta Troponin T 0 ABS# (0-10) 08/11/22 10:37 Total Protein 6.1 g/dL (6.6-8.7) L 08/11/22 08:26 Albumin 4.2 g/dL (3.5-5.2) 08/11/22 08:26 Globulin 1.9 g/dL (1.3-4.6) 08/11/22 08:26 Lipase 51 U/L (13-60) 08/11/22 08:26 EKG Data EKG 1: I personally reviewed and interpreted this EKG as follows: EKG interpretation date: 08/11/22 EKG interpretation time: 07:35 Interpretation: sinus jace hr [address] or t wave abnormalities qrs 94 qtc 403 Discharge Plan Discharge Patient Disposition: Home Clinical Impression: Atypical chest pain Condition: Stable Prescriptions: New aspirin 81 mg tablet,delayed release (DR/EC) 81 mg PO DAILY Qty: 30 0RF No Action hydroxyzine pamoate [Vistaril] 25 mg capsule 25 mg PO BID PRN (Reason: anxiety) Qty: 30 1RF omeprazole 40 mg capsule,delayed release(DR/EC) 40 mg PO BEDTIME Lamictal 200 mg tablet 200 mg PO QPM Zoloft 100 mg tablet 100 mg PO BEDTIME Geodon 20 mg capsule 20 mg PO QPM Rx Instructions: with 500 calories of food trazodone 100 mg tablet 200 mg PO BEDTIME PRN (Reason: sleep) lithium carbonate 300 mg capsule 300 mg PO BEDTIME hydrocodone-acetaminophen 5-325 mg tablet 1 tab PO Q6H MDD 4 tabs PRN (Reason: Pain) propranolol 10 mg tablet 10 mg PO QPM Discharge Orders: Discharge ED (Routine); Ordered 08/11/22 Ordered By: Christ Fishman Referrals: Ro Finney DO [Primary Care Provider] - Discharge Diet: Usual diet Discharge Activity: Resume usual activity Patient Instructions: Opioid Safety, Pain Management Activity Restrictions/Additional Instructions: You are seen today for chest pain. Your EKGs and cardiac enzymes were negative. Recommend that you start taking aspirin daily. Case management make arrangements for an outpatient Lexiscan sestamibi stress test. Contact Dr. Sidhu to reschedule your toe surgery. Sign Out Sign Out Data: Patient Sign Out occurred on 08/11/22 at 08:22. Patient's care was discussed, and care was transferred from to Christ Fishman DO. Coding Level of Care Code ED Transitions Manager Rn for Chg Fwd Documented by User: Christ Fishman DO 08/11/22 18:01 HPI - Chest Pain General: Chief Complaint: Chest Pain Stated Complaint: CP brought frot out patient surgery Time Seen by Provider: 08/11/22 08:02 [facility] ED PFSH: Medical History Atrophic vaginitis Bereavement Loss of parents Bilateral low back pain with right-sided sciatica Bipolar disorder Bipolar I disorder, most recent episode mixed, severe without psychotic features with anxious distress Carpal tunnel syndrome, bilateral Chronic back pain Chronic sacroiliac pain Encounter for long-term use of 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 Genital herpes in women GERD (gastroesophageal reflux disease) Hypothyroidism Mixed incontinence Post-traumatic stress disorder, chronic Psychiatric care Recurrent UTI Surgical History Bariatric surgery status H/O LEEP S/P dilatation and curettage age of 19 in [place] S/P gastric bypass [facility]. [id number] S/P hysterectomy Dr. Underwood-1997 ovaries remain Family History Father Diabetes Stroke Grandmother Cancer breast-ovarian Brother Diabetes Hypertension Mother Thyroid disease Social History Smoking and tobacco status: former smoker Quit status (tobacco): has tried quititng Number of times tried to quit tobacco: 2 Second hand smoke exposure: No Smoking risk assessment/counseling performed?: No Alcohol intake: former Desire information about alcohol rehabilitation?: No Counseling given: No Desire information about substance/drug rehabilitation?: No Counseling given: No Marital status: Course Vital Signs: Vital signs: Vital Signs Temperature 97.9 F 08/11/22 08:11 Pulse Rate 92 08/11/22 12:43 Respiratory Rate 16 08/11/22 12:43 Blood Pressure 169/112 08/11/22 12:43 Pulse Oximetry 94 08/11/22 12:43 Oxygen Delivery Me thod 08/11/22 08:25 MDM - Chest Pain Medical Decision Making Patient care handoff received from Dr. Broussard continuation of ED evaluation. I personally saw and evaluated patient and reperformed staley portions of E/M. Labs and imaging reviewed cardiac enzymes negative EKG unremarkable patient longer having any symptoms. We will discharge patient home asked her to take baby aspirin daily and set her up for outpatient Lexiscan sestamibi stress test. Medical Records I reviewed the patient's medical records. Lab Data I reviewed the patient's lab results. 08/11/22 08:26 08/11/22 08:26 Radiology Impressions Chest X-Ray 08/11/22 08:03 IMPRESSION: Unremarkable frontal portable chest x-ray. Laboratory Results WBC 7.1 10^3/uL (4.0-10.0) 08/11/22 08:26 RBC 4.60 10^6/uL (4.1-5.3) 08/11/22 08:26 Hgb 13.5 g/dL (11.5-15.3) 08/11/22 08:26 Hct 41.2 % (37.0-47.0) 08/11/22 08:26 MCV 89.6 fl (81-99) 08/11/22 08:26 MCH 29.3 pg (28.0-34.0) 08/11/22 08:26 MCHC 32.8 g/dL (30.0-36.0) 08/11/22 08:26 RDW 13.1 % (12.1-15.1) 08/11/22 08:26 Plt Count 320 10^3/cmm (130-400) 08/11/22 08:26 MPV 10.4 fL (7.4-10.4) 08/11/22 08:26 Neut % (Auto) 54.5 % 08/11/22 08:26 Lymph % (Auto) 33.9 % 08/11/22 08:26 Snyder % (Auto) 6.8 % 08/11/22 08:26 Eos % (Auto) 3.1 % 08/11/22 08:26 Baso % (Auto) 1.3 % 08/11/22 08:26 Neut # (Auto) 3.87 10^3/uL (1.8-7.7) 08/11/22 08:26 Lymph # (Auto) 2.4 10^3/uL (0.8-4.8) 08/11/22 08:26 Snyder # (Auto) 0.5 10^3/uL (0.2-0.9) 08/11/22 08:26 Eos # (Auto) 0.2 10^3/uL (0.0-0.8) 08/11/22 08:26 Baso # (Auto) 0.1 10^3/uL (0.0-0.1) 08/11/22 08:26 Nucleated RBC % (auto) 0 % 08/11/22 08:26 Nucleated RBCs # 0.0 /100WBC 08/11/22 08:26 Sodium 143 mmol/L (136-145) 08/11/22 08:26 Potassium 4.0 mmol/L (3.5-5.1) 08/11/22 08:26 Chloride 109 mmol/L (98-107) H 08/11/22 08:26 Carbon Dioxide 24 mmol/L (22-29) 08/11/22 08:26 Anion Gap 14.0 (5-19) 08/11/22 08:26 BUN 15 mg/dL (8-23) 08/11/22 08:26 Creatinine 1.1 mg/dL (0.5-0.9) H 08/11/22 08:26 GFR Calculation 50.7 mL/min (90-130) L 08/11/22 08:26 Glucose 79 mg/dL (65-115) 08/11/22 08:26 Calculated Osmolality 296 mOsm/kg (285-295) H 08/11/22 08:26 Calcium 9.6 mg/dL (8.5-10.5) 08/11/22 08:26 Total Bilirubin 0.3 mg/dL (0.15-1.2) 08/11/22 08:26 AST 15 U/L (0-32) 08/11/22 08:26 ALT 6 U/L (0-33) 08/11/22 08:26 Alkaline Phosphatase 123 U/L (35-105) H 08/11/22 08:26 Troponin T Baseline 6 ng/L (0-10) 08/11/22 08:26 Troponin T 120 Minute 6.00 ng/L (0-10) 08/11/22 10:37 Delta Troponin T 0 ABS# (0-10) 08/11/22 10:37 Total Protein 6.1 g/dL (6.6-8.7) L 08/11/22 08:26 Albumin 4.2 g/dL (3.5-5.2) 08/11/22 08:26 Globulin 1.9 g/dL (1.3-4.6) 08/11/22 08:26 Lipase 51 U/L (13-60) 08/11/22 08:26 Discharge Plan Discharge Patient Disposition: Home Clinical Impression: Atypical chest pain Condition: Stable Prescriptions: New aspirin 81 mg tablet,delayed release (DR/EC) 81 mg PO DAILY Qty: 30 0RF No Action hydroxyzine pamoate [Vistaril] 25 mg capsule 25 mg PO BID PRN (Reason: anxiety) Qty: 30 1RF omeprazole 40 mg capsule,delayed release(DR/EC) 40 mg PO BEDTIME Lamictal 200 mg tablet 200 mg PO QPM Zoloft 100 mg tablet 100 mg PO BEDTIME Geodon 20 mg capsule 20 mg PO QPM Rx Instructions: with 500 calories of food trazodone 100 mg tablet 200 mg PO BEDTIME PRN (Reason: sleep) lithium carbonate 300 mg capsule 300 mg PO BEDTIME hydrocodone-acetaminophen 5-325 mg tablet 1 tab PO Q6H MDD 4 tabs PRN (Reason: Pain) propranolol 10 mg tablet 10 mg PO QPM Discharge Orders: Discharge ED (Routine); Ordered 08/11/22 Ordered By: Christ Fishman Referrals: Ro Finney DO [Primary Care Provider] - Discharge Diet: Usual diet Discharge Activity: Resume usual activity Patient Instructions: Opioid Safety, Pain Management Activity Restrictions/Additional Instructions: You are seen today for chest pain. Your EKGs and cardiac enzymes were negative. Recommend that you start taking aspirin daily. Case management make arrangements for an outpatient Lexiscan sestamibi stress test. Contact Dr. Sidhu to reschedule your toe surgery. Sign Out Sign Out Data: Patient Sign Out occurred on 08/11/22 at 08:22. Patient's care was discussed, and care was transferred from to Christ Fishman DO. Coding Level of Care Code ED Transitions Manager Rn for Shaka Holbrook
--- NOTE | 2022-08-11 08:13 | ECG_ITS ---
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 Measurements Intervals [place] Rate: 58 P: 33 FL: 165 QRS: -15 QRSD: 92 T: 8 QT: 412 QTc: 405 Interpretive Statements SINUS BRADYCARDIA LOW QRS VOLTAGE IN PRECORDIAL LEADS [QRS DEFLECTION < 1.0 mV IN CHEST LEADS] Compared to ECG 08/11/2022 07:35:59 Myocardial infarct finding no longer present Electronically Signed On 08-11-2022 23:01:58 CDT by Angela Spaulding M.D. [id number]
[2022-08-11] MEDS: aspirin 81 mg Chew Tablet 324 MG PO (08:21)
--- NOTE | 2022-08-11 08:30 | PC.NURSE ---
PT PLACED ON CONTINUOUS NIBP, SPO2, AND CM
[2022-08-11 08:33] LABS: Basophils # 0.1 10^3/uL (0.0-0.1); Basophils % 1.3 %; Eosinophils # 0.2 10^3/uL (0.0-0.8); Eosinophils % 3.1 %; Hematocrit 41.2 % (37.0-47.0); Hemoglobin 13.5 g/dL (11.5-15.3); Lymphocytes # 2.4 10^3/uL (0.8-4.8); Lymphocytes % 33.9 %; Mean Corpuscular HGB Conc 32.8 g/dL (30.0-36.0); Mean Corpuscular Hemoglobin 29.3 pg (28.0-34.0); Mean Corpuscular Volume 89.6 fl (81-99); Mean Platelet Volume 10.4 fL (7.4-10.4); Monocytes # 0.5 10^3/uL (0.2-0.9); Monocytes % 6.8 %; Neutrophils # 3.87 10^3/uL (1.8-7.7); Neutrophils % 54.5 %; Nucleated Red Blood Cells % 0 %; Platelet Count 320 10^3/cmm (130-400); Red Cell Distribution Width 13.1 % (12.1-15.1); White Blood Count 7.1 10^3/uL (4.0-10.0)
[2022-08-11 08:54] LABS: Alanine Aminotransferase 6 U/L (0-33); Albumin Level 4.2 g/dL (3.5-5.2); Alkaline Phosphatase 123 U/L (35-105); Aspartate Amino Transferase 15 U/L (0-32); Blood Urea Nitrogen 15 mg/dL (8-23); Calcium 9.6 mg/dL (8.5-10.5); Carbon Dioxide 24 mmol/L (22-29); Chloride 109 mmol/L (98-107); Globulin 1.9 g/dL (1.3-4.6); Glomerular Filtration Rate 50.7 mL/min (90-130); Glucose 79 mg/dL (65-115); Lipase 51 U/L (13-60); Osmolality Calculated 296 mOsm/kg (285-295); Sodium 143 mmol/L (136-145); Total Bilirubin 0.3 mg/dL (0.15-1.2); Total Protein 6.1 g/dL (6.6-8.7); Troponin(5th) Baseline 6 ng/L (0-10)
[2022-08-11] MEDS: lidocaine 2% viscous 15 ML, aluminum-mag hydrox-simethicon 30 ML, sucralfate oral liq 1 GM PO (09:58)
--- NOTE | 2022-08-11 10:03 | ECG_ITS ---
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 Measurements Intervals [place] Rate: 59 P: -5 ME: 156 QRS: -13 QRSD: 95 T: 25 QT: 417 QTc: 415 Interpretive Statements SINUS BRADYCARDIA LOW QRS VOLTAGE IN PRECORDIAL LEADS [QRS DEFLECTION < 1.0 mV IN CHEST LEADS] Compared to ECG 08/11/2022 09:28:38 No significant changes Electronically Signed On 08-11-2022 23:14:26 CDT by Angela Spaulding M.D. [id number]
[2022-08-11 11:43] LABS: Troponin 5 2HR Delta 0 ABS# (0-10)
--- NOTE | 2022-08-11 12:24 | PC.NURSE ---
Pt left before RN was able to DC pt. Pt had IV in left forearm. Charge nurse informed, security and law enforcement notified.
--- NOTE | 2022-08-11 12:39 | PC.NURSE ---
PT LEFT ER WITHOUT NOTIFYING STAFF OR REQUESTING TO LEAVE. PT LEFT WITH IV INTACT. PD NOTIFIED. PT CALLED AND ASKED TO RETURN TO ED. PT RETURNED. IV REMOVED. DC PAPERS SIGNED. PT IV SITE AND SKIN WNL. PT A/O BY 4. PT STATES SHE WAS EMBARRASSED FOR HAVING ANXIETY RELATED CHEST PAIN AND NOT AK RELATED CHEST PAIN. PT STATED I FEEL BAD FOR TAKING UP A BED THEN PT STATED I WANNA JUST GO OFF BY MYSELF REPLIED WHAT DO YOU MEAN BY THAT? IS THERE ANYMORE YOU CAN TELL ME? PT STATED I AM NOT SUICIDAL. I JUST THINK BETTER WHEN I AM BUY MYSELF .
--- NOTE | 2022-08-14 14:37 | DCPLANNER ---
Addendum entered by Sobia Palencia 09/15/22 09:56: This appointment was rescheduled Addendum entered by Sobia Palencia 08/31/22 08:10: Patient has an outpatient stress test scheduled for August at 9:00. Original Note: manager diesel had message to schedule an outpatient stress test for patient. manager diesel faxed signed order to centralized scheduling, who will call patient with appointment information.
== END 2022-08-11 12:46 | disposition home or self-care (01) ==
PROVIDERS: Emergency Medicine; Emergency Provider Family Medicine; PCP Family Medicine
DX: R07.89 Other chest pain (principal); Z87.891 Personal history of nicotine dependence
CPT/HCPCS: 71045; 80053; 83690; 84484; 85025; 93005; 99285

== ENCOUNTER → 2022-08-29 13:37 | Outpatient (BNVA) | payer MEDICARE, MEDICAID, SELFPAY | PROVIDERS: PCP Family Medicine; Visit Provider Orthopaedic Surgery | DX: M17.0 Bilateral primary osteoarthritis of knee (principal) | CPT/HCPCS: 20610; J0702; J3490 ==

== ENCOUNTER 2022-10-25 10:13 | Outpatient (CLI) | payer MEDICARE, MEDICAID, SELFPAY ==
--- NOTE | 2022-10-25 | ECG_ITS ---
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 Interpretive Statements NAME OF STUDY: LEXISCAN SESTAMIBI STRESS TEST INDICATION: [Chest Pain, ] Procedure: At the baseline, the blood pressure was 123/66 mmHg with a heart rate of 58 bpm. The electrocardiogram showed sinus bradycardia, normal axis with normal ST and T's. The Lexiscan was infused over a period of 20 seconds. A total of 0.4 mg of Lexiscan was infused. The stress phase was continued for a total of 5 minutes. Heart rate was at the end of stress phase was 70 bpm and a blood pressure of 109/66 mmHg. The EKG at the peak infusion revealed normal sinus rhythm with no significant ST-T wave changes. Sestamibi was injected 20 seconds after the Lexiscan infusion. Blood pressure at the end of recovery phase was 112/65 mmHg with a heart rate of 69 bpm. Conclusion: 1. Normal EKG response to Lexiscan infusion 2. No Lexiscan induced chest pain or cardiac arrhythmia. 3. Normal blood pressure and heart rate response. 4. Sestamibi/sestamibi perfusion scan pending; see separate report. Electronically Signed On 11-07-2022 17:35:30 CDT by Herbie Jin M.D. [id number]
[2022-10-25 10:19] VITALS: BMI 29.2
--- NOTE | 2022-10-25 10:32 | NMCV_ITS ---
NM april perf SPECT r/s* [id number] Bobbi Fritz Age: 62 Gender: F : 1960 Exam Date: 10/25/2022 11:15 Ordering Phys: Christ Fishman DO Technologist: KAVON Tran Exam Location: [facility] Indications: CHEST PAIN STRESS TEST [facility] IMAGE PROTOCOL Rest/Stress 1 Lexiscan Day Radiopharmaceutical Dose (mCi) Administration Site Administered by Rest: Tc-99m 11.0 IV KAVON Maddox Sestamibi Stress:Tc-99m 32.6 IV KAVON Maddox Sestamibi Rest: 25-Oct-2022 60 Discovery 630 Stress: 25-Oct-2022 30 Discovery 630 0.4mg Lexiscan. Images obtained in supine and prone position. SPECT RESULTS Technical Quality: Excellent Raw Data Analysis: Normal Image Corrections: No attenuation or motion correction applied Summed Stress Score: 5 Summed Rest Score: 9 Summed Difference Score: 0 PERFUSION FINDINGS There is a medium sized fixed perfusion defect noted in apical inferior, apical lateral and inferolateral lock. 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 No evidence of ischemia. FUNCTIONAL RESULTS (calculated via Gated SPECT) Stress Image LV EF (%): 77 Stress EDV (mL):75 TID: 0.84 Stress ESV (mL):17 FUNCTIONAL FINDINGS: There is normal left ventricular systolic function. IMPRESSIONS 1. Medium sized area of prior infarct seen in the RCA and left circumflex artery territories. No evidence of ischemia seen. 2. LV systolic function is normal Herbie Jin MD (Electronically Signed) Final Date: 28 October 2022 11:15 S
[2022-10-25] MEDS: regadenoson 0.4 Mg/5 ml Syringe IVP (12:34)
[2022-10-25 12:51] VITALS: BP 112/65; PULSE 70
== END 2022-10-25 10:14 | disposition home or self-care (01) ==
LOC: CDL 10:14
PROVIDERS: PCP Family Medicine; Visit Provider Family Medicine
DX: R07.9 Chest pain, unspecified (principal); I25.2 Old myocardial infarction
CPT/HCPCS: 36415; 78452; 93017; 96374; A9500; J2785

== ENCOUNTER → 2022-11-28 14:14 | Outpatient (BNVA) | payer MEDICARE, MEDICAID, SELFPAY | PROVIDERS: PCP Family Medicine; Visit Provider Nurse Practitioner Family | DX: M25.561 Pain in right knee (principal); M25.562 Pain in left knee; G89.29 Other chronic pain | CPT/HCPCS: 20610; 99213; J1100; J3301 ==

== ENCOUNTER 2023-02-13 13:44 | Outpatient (CLI) | payer MEDICARE, MEDICAID, SELFPAY ==
--- NOTE | 2023-02-13 13:55 | MM_ITS ---
WS: [id number] DIAGNOSTIC BILATERAL DIGITAL BREAST TOMOSYNTHESIS MAMMOGRAPHY WITH CAD LEFT breast ultrasound. HISTORY: LT BR PAIN COMPARISON: 01/05/2016 TECHNIQUE: Bilateral craniocaudad, mediolateral oblique, and mediolateral views are submitted with to mosluis and SM. Spot compression LEFT CC computer aided detection utilized. Breast composition: The breasts are extremely dense, which lowers the sensitivity of mammography. No abnormality is noted in the LEFT breast in the area of pain. There is no distortion. There is a benig n calcification in the central LEFT breast. LEFT breast ultrasound, limited. Ultrasound directed to the area of pain within the LEFT breast which is near 3:00. No underlying mass or abnormality is identified. No skin thickening. IMPRESSION: MM/[place] [id number] BI-RADS: 2-Benign FOLLOW UP: 1 Year Follow-up
== END 2023-02-13 13:45 | disposition home or self-care (01) ==
PROVIDERS: PCP Family Medicine; Visit Provider Nurse Practitioner Family
DX: N64.4 Mastodynia (principal)
CPT/HCPCS: 76642; 77062; G0279

== ENCOUNTER → 2023-02-28 13:46 | Outpatient (BNVA) | payer MEDICARE, MEDICAID, SELFPAY | PROVIDERS: PCP Family Medicine; Visit Provider Internal Medicine Cardiovascular Disease | DX: I25.10 Atherosclerotic heart disease of native coronary artery without angina pectoris (principal); R00.2 Palpitations; R06.02 Shortness of breath; F17.210 Nicotine dependence, cigarettes, uncomplicated | CPT/HCPCS: 99214 ==

== ENCOUNTER 2023-03-06 12:07 | Outpatient (CLI) | payer MEDICARE, MEDICAID, SELFPAY ==
--- NOTE | 2023-03-06 12:11 | CT_ITS ---
WS: [id number] CT NECK TECHNIQUE: Contrast-enhanced CT of the neck with coronal and sagittal reformatted images. CLINICAL INFORMATION: LOCALIZED SWELLING,MASS LUMP, NECK COMPARISON: CT 01/13/2022 DLP: 153.[address] scans at [facility] use at least one of these dose optimization techniques: automated e xposure control; mA and/or kV adjustment per patient size (includes targeted exams where dose is matc hed to clinical indication); or iterative reconstruction. 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 No evidence of recurrent mass or lesion in this reg ion. No suspicious lesions deep to the palpable marker. Normal sternocleidomastoid. Multinodular thyr oid with subcentimeter thyroid nodules similar to previous. Normal submandibular glands. Parotid glands appear normal. Normal posterior nasopharynx and paraphary ngeal fat. No evidence of supraglottic or glottic mass. Fibrosis LEFT upper lobe is unchanged. Noncal cified nodule LEFT upper lobe laterally measuring 4 mm. This appears new since the prior neck CT. Thi s can be followed up with chest CT. Mild spondylitic changes with disc osteophyte complex at C5-6 with mild central canal stenosis. Mild mucosal thickening mastoid tips. Paranasal sinuses are well aerated. Normal posterior nasopharynx and parapharyngeal fat. IMPRESSION: 1. No evidence of recurrent mass or lesion deep to the palpable marker. 2. 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 3. Multinodular thyroid. 4. 4 mm subpleural nodule LEFT upper lobe. Recommend follow-up chest CT.
[2023-03-06 12:55] LABS: Blood Urea Nitrogen 13 mg/dL (8-23); Glomerular Filtration Rate 56.4 mL/min (90-130)
[2023-03-06] MEDS: iohexol 350 mg/mL 500 mL Btl (per mL) IV (13:04)
== END 2023-03-06 12:08 | disposition home or self-care (01) ==
LOC: RAD 12:08
PROVIDERS: PCP Family Medicine; Visit Provider Specialist
DX: M17.0 Bilateral primary osteoarthritis of knee (principal)
CPT/HCPCS: 20610; 70491; 82565; 84520; 99213; J3301; Q9967

== ENCOUNTER 2023-03-08 16:33 | Outpatient (CLI) | payer MEDICARE, MEDICAID, SELFPAY ==
--- NOTE | 2023-03-08 | MR_ITS ---
WS: [id number] MRI BRAIN WITHOUT CONTRAST HISTORY: MIGRAINES COMPARISON: None available. TECHNIQUE: Diffusion imaging, multiplanar T1, T2 and FLAIR imaging obtained. No evidence for acute infarct or hemorrhage. Ariza-white matter differentiation is normal. Mild atrophy. No prior infarct. Very minimal small vessel ischemic disease. Normal hippocampal format ions. Ventricles and extra-axial spaces are normal. No inferior displacement of cerebellar tonsils. The sella turcica and pituitary gland are unremarkabl e. Dural venous sinuses and [place] of [place] demonstrate no abnormality on this unenhanced studies. Paranasal sinuses: Clear. Mastoid air cells: Small amount of fluid in the mastoid air cells, LEFT greater than RIGHT. Calvarium and scalp: Intact. IMPRESSION: 1. No evidence for acute infarct or hemorrhage. 2. Mild atrophy and very mild small vessel ischemic disease.
== END 2023-03-08 16:34 | disposition home or self-care (01) ==
PROVIDERS: PCP Family Medicine; Visit Provider Family Medicine
DX: G43.C1 Periodic headache syndromes in child or adult, intractable (principal); G31.9 Degenerative disease of nervous system, unspecified
CPT/HCPCS: 70551

== ENCOUNTER → 2023-04-06 13:53 | Outpatient (BNVA) | payer MEDICARE, OTHER, SELFPAY | PROVIDERS: PCP Family Medicine; Visit Provider Nurse Practitioner Psychiatric/Mental Health | DX: Z79.899 Other long term (current) drug therapy (principal); F31.63 Bipolar disorder, current episode mixed, severe, without psychotic features; F43.12 Post-traumatic stress disorder, chronic; Z63.4 Disappearance and death of family member | CPT/HCPCS: 80053; 80061; 83036 ==

== ENCOUNTER 2023-04-10 13:15 | Outpatient (CLI) | payer MEDICARE, MEDICAID, SELFPAY ==
--- NOTE | 2023-04-10 13:32 | CTR_ITS ---
PROCEDURE INFORMATION: Exam: CT Chest Without Contrast; Diagnostic Exam date and time: 04/10/2023 1:41 PM Age: 63 years old Clinical indication: Abnormal findings; Abnormal radiologic exam of lung or chest; Additional info: Lung nodule TECHNIQUE: Imaging protocol: Diagnostic computed tomography of the chest without contrast. Radiation optimization: All CT scans at this facility use at least one of these dose optimization techniques: automated exposure control; mA and/or kV adjustment per patient size (includes targeted exams where dose is matched to clinical indication); or iterative reconstruction. REPORTING DATA: Count of CT and Cardiac NM exams in prior 12 months: This patient has received 2 known CTs and 0 known cardiac nuclear medicine studies in the 12 months prior to the current study. COMPARISON: 1. CT neck w con* [id number] 03/06/2023 1:[address] abdomen pelvis w con* [id number] 12/07/2017 3:47 AM 3. CR XR chest 1V portable [id number] 08/11/2022 8:07 AM RADIATION DOSE METRICS: Total DLP (mGy-cm): 379.83 FINDINGS: Lungs: No consolidation. Mild left apical pleural-parenchymal scarring and bronchiolectasis. Lingular linear scarring versus atelectasis. Left upper lobe nodule of concern on comparison neck CT has resolved. Patchy tree-in-bud nodularity throughout the left upper and lower lobes. Mild bandlike opacity at the lower azygous esophageal recess. May represent atelectasis or scarring. Pleural spaces: No pleural effusion or pneumothorax. Heart: Unremarkable. No cardiomegaly. No pericardial effusion. Coronary arteries: No coronary artery calcification. Lymph nodes: Unremarkable. No enlarged lymph nodes. Vasculature: Mild systemic atherosclerotic calcification without aortic aneurysm. Diaphragm: Small to moderate hiatal hernia. 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 Stomach and bowel: Prior gastric sleeve. Bones/joints: No acute fracture. Minimal degenerative changes along the spine. Soft tissues: Unremarkable. CT/CT chest wo con [id number] IMPRESSION: Patchy tree-in-bud nodularity throughout the left lung may represent infectious or inflammatory bronchiolitis.
== END 2023-04-10 13:16 | disposition home or self-care (01) ==
PROVIDERS: PCP Family Medicine; Visit Provider Family Medicine
DX: R91.8 Other nonspecific abnormal finding of lung field (principal)
CPT/HCPCS: 71250

== ENCOUNTER → 2023-05-03 07:18 | Outpatient (BNVA) | payer MEDICARE, SELFPAY | PROVIDERS: PCP Family Medicine; Visit Provider Nurse Practitioner Family | DX: R50.9 Fever, unspecified (principal); R51.9 Headache, unspecified; R11.0 Nausea; A08.4 Viral intestinal infection, unspecified; G44.209 Tension-type headache, unspecified, not intractable | CPT/HCPCS: 87400; 87426 ==

== ENCOUNTER → 2023-05-07 14:26 | Outpatient (BNVA) | payer MEDICARE, MEDICAID, SELFPAY | PROVIDERS: PCP Family Medicine; Visit Provider Podiatrist Foot & Ankle Surgery | DX: M79.671 Pain in right foot (principal); M79.672 Pain in left foot; M20.22 Hallux rigidus, left foot | CPT/HCPCS: 99214 ==

== ENCOUNTER → 2023-05-29 15:02 | Outpatient (BNVA) | payer MEDICARE, MEDICAID, SELFPAY | PROVIDERS: PCP Family Medicine; Visit Provider Physician Assistant | DX: M25.561 Pain in right knee (principal); M25.562 Pain in left knee; M17.0 Bilateral primary osteoarthritis of knee; M23.303 Other meniscus derangements, unspecified medial meniscus, right knee | CPT/HCPCS: 73560; 73565; 99213 ==

== ENCOUNTER → 2023-06-04 11:24 | Outpatient (BNVA) | payer MEDICARE, MEDICAID, SELFPAY | PROVIDERS: PCP Family Medicine; Visit Provider Podiatrist Foot & Ankle Surgery | DX: M20.22 Hallux rigidus, left foot (principal); M79.671 Pain in right foot; M79.672 Pain in left foot | CPT/HCPCS: 99214 ==

== ENCOUNTER 2023-06-15 05:58 | Day surgery (SDC) | payer MEDICARE, MEDICAID, SELFPAY ==
[2023-06-15] VITALS (9 sets, daily range): BP systolic 104–134; BP diastolic 62–82; PULSE 66–78; RESP 16–17; TEMP 36.2–36.6; O2SAT 97–100; BMI 29.2
[2023-06-15] MEDS: sodium chloride 0.9% 1,000 ML 30 ML IV (06:33)
--- NOTE | 2023-06-15 07:02 | P.HPUD_ITS ---
Surgery/Procedure H&P Update DATE OF PROCEDURE: June 15, 2023 DATE H&P PERFORMED: 06/04/23 H&P UPDATE INFORMATION: I have reviewed H&P completed within last 30 days, I have examined patient prior to procedure, No changes to prior documentation and H&P is in [facility] on date indicated PREOP DIAGNOSIS: Left hallux rigidus PLANNED PROCEDURE: Operation Date: 06/15/23 07:45 Proposed Procedures p Left first metatarsal phalangeal joint fusion 25464 M20.22(Left) - Montana Sidhu DPM
--- NOTE | 2023-06-15 07:04 | ANES.PREANE2 ---
Pre-Anesthetic Assessment Height/Weight: Height 1.63 m Weight 77.111 kg Temp Pulse Resp BP Pulse Ox O2 Del Method 97.6 F 78 17 125/82 97 Room Air 06/15/23 06:14 06/15/23 06:14 06/15/23 06:14 06/15/23 06:14 06/15/23 06:14 06/15/23 06:20 Preop Diagnosis: Left hallux rigidus Operation Date: 06/15/23 07:45 Proposed Procedures p Left first metatarsal phalangeal joint fusion 70055 M20.22(Left) - Montana Sidhu DPM Familial anesthetic complications: none Was Beta Alfie taken within 24 hours: N/A Was Clonidine taken within 24 hours: N/A Last intake: Intake Last Liquid Date 06/14/23 Last Liquid Time 00:15 Last Solid Date 06/14/23 Last Solid Time 21:00 Social Tobacco (vapes) and No alcohol Exam alert, oriented x 3, clear to auscultation bilaterally and regular rate & rhythm Airway Submandibular: within normal limits Cervical ROM: within normal limits Mallampati: Class II Dentition: false CV/HEM Coronary Artery Disease GI Gastroesophageal Reflux Disease Metabolic Hyperlipidemia and Thyroid Disease Musc/skel Lower Back Pain and Osteoarthritis/DJD Neuropsych Anxiety, Bipolar and Depression Anesthetic Plan ASA status: 3 Anesthesia: Choice Medications/Allergies Home Medications Medication Instructions Recorded Confirmed Last Taken Type hydrocodone 5 mg-acetaminophen 325 1 tab PO Q6H PRN Pain 08/10/22 06/14/23 06/14/23 History mg tablet aspirin 81 mg tablet,delayed 81 mg PO DAILY #30 tabs 08/11/22 06/14/23 06/08/23 Rx release trazodone 100 mg tablet 200 mg (2 x 100 mg) PO .QHS PRN 10/27/22 06/14/23 06/13/23 Rx sleep #180 tabs pravastatin 10 mg tablet 10 mg PO DAILY #90 tabs 02/28/23 06/14/23 06/13/23 Rx lamotrigine 200 mg tablet 200 mg PO .evening #90 tabs 04/06/23 06/14/23 06/13/23 Rx (Lamictal) diclofenac sodium 1 % topical gel 4 g topical QID right knee pain 05/29/23 06/14/23 06/12/23 Rx (Voltaren Arthritis Pain) #100 grams meloxicam 15 mg tablet 15 mg PO DAILY 30 days #30 tabs 05/29/23 06/14/23 06/14/23 Rx lithium carbonate 300 mg capsule 300 mg PO BEDTIME #90 caps 05/30/23 06/14/23 06/13/23 Rx ziprasidone HCl 20 mg capsule 20 mg PO BID #180 caps 05/30/23 06/14/23 06/13/23 Rx (Geodon) Allergies Allergy/AdvReac Type Severity Reaction Status Date / Time propoxyphene Allergy Severe hives, Verified 06/04/23 11:27 [From Darvocet-N] tongue swelling Sulfa (Sulfonamide Allergy Severe ALGY-Swell Verified 06/04/23 11:27 Antibiotics) Lip/Tongue/Throat cefuroxime [From Ceftin] Allergy unknown Verified 06/04/23 11:27 divalproex sodium Allergy Unknown Verified 06/04/23 11:27 [From Depakote] Current Medications Generic Name Dose Route Start Last Admin Trade Name Freq PRN Reason Stop Dose Admin Sodium Chloride 1,000 mls @ 30 mls/hr 06/15/23 06:15 06/15/23 06:33 Sodium Chloride 0.9% IV 06/16/23 06:14 30 mls/hr .Q24H MIGUEL ANGEL Administration PFSH Anesthesia Medical History Vaping nicotine dependence, tobacco product Post-traumatic stress disorder, chronic Bipolar I disorder, most recent episode mixed, severe without psychotic features with anxious distress Psychiatric care Bereavement Loss of parents Loss of Aunt on 11/11/22 Encounter for long-term use of 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 Chronic back pain Chronic sacroiliac pain Genital herpes in women GERD (gastroesophageal reflux disease) Carpal tunnel syndrome, bilateral Atrophic vaginitis Recurrent UTI Mixed incontinence Bilateral low back pain with right-sided sciatica Bipolar disorder Hypothyroidism Surgical History Bariatric surgery status S/P hysterectomy Dr. Underwood-1997 ovaries remain S/P dilatation and curettage age of 19 in [place] S/P gastric bypass [facility]. [id number] H/O LEEP Family History Father Diabetes Stroke Grandmother Cancer breast-ovarian Brother Diabetes Hypertension Mother Thyroid disease Social History Smoking and tobacco/nicotine status: former use of tobacco/nicotine Quit status (tobacco/nicotine): has tried quititng Number of times tried to quit tobacco: 2 Second hand smoke exposure: No Alcohol intake: former Substance/Drug Use: never Marital status: Data Anesthesia Cardiac Studies: Sestamibi Stress Test (Cardiology) 10/25/22 Holter Monitor 05/18/22
--- NOTE | 2023-06-15 07:37 | P.OP_ITS ---
Operative Report Date of procedure: June 15, 2023 Pre-op diagnosis: Left hallux rigidus. Post-op diagnosis: Left hallux rigidus. Post-op findings: Left hallux rigidus. Procedure done: Left first metatarsal phalangeal joint fusion. CPT code 97405 Implants: Premium first metatarsal phalangeal joint primary arthrodesis plate 2.7 millimeter screws distally x 3 locking 3.5 millimeter screw locking x 2 proximally and nonlocking x 1 3 mm headed round screw 3-0 Vicryl 4-0 Vicryl 4-0 nylon Specimens removed/disposition: None Pathology: None Surgeon: Montana Sidhu DPM Driver Examiner: Aurora MARSHALL Estimated blood loss: 5 33 IV fluids: 0 Urine output: 0 Complications: None Brief History: X-ray reviewed on file left foot shows arthrosis of the left first metatarsal phalangeal joint with joint space narrowing, subchondral sclerosis and cystic formation. She has pain and crepitus with range of motion at the left first metatarsal phalangeal joint which is also decreased at 15 degrees at this point with osseous and range of motion and pain. Patient wishing to proceed with left first metatarsophalangeal joint fusion. Would like to have this done June 15, 2023. I reviewed at length with the patient, the risks, potential complications, benefits, alternatives, expectations, and typical outcomes associated with the surgery. The risks and potential complications were explained in detail, including but not limited to infection, wound dehiscence or soft tissue complications, bleeding and hematoma, chronic edema, neuritis or nerve damage producing numbness or chronic pain, CRPS, failure to relieve pain or worsening pain, thick / painful / unsightly scar, limited motion / stiffness, malposition, delayed union, malunion, or nonunion, fracture, reaction to implants, anesthetic complications, venous thromboembolism, and deformity recurrence. I discussed the notion of no regrets with the patient as it pertains to complications and outcomes. The patient seemed to understand the nature of the proposed care and required convalescence. They asked appropriate questions, answered to their satisfaction. They are aware no guarantees can be made as to a satisfactory outcome and they understand there may be other p ossible unforeseen complications or outcomes not listed here that will be treated accordingly if they arise. There were no written or implied guarantees given to the patient. They gave informed consent to proceed. Procedure: Sedation the patient was brought to the operating room and remained on the gurney in supine position. A timeout was performed. Anesthesia was then administered by the anesthesia service. Local anesthesia was injected by myself consisting of 20 cc of 0.5% Marcaine plain in the left male block fashion. Additional subcutaneously 10 cc of Exparel was injected subcutaneously in a grid like fashion proximal to the surgical site left foot. Well-padded pneumatic tourniquet applied to left high calf. The left lower extremity was scrubbed, prepped and draped utilizing normal aseptic technique. Left foot was exanguinated with Esmarch bandage and the tourniquet inflated to 250 mmHg. Attention was directed to the dorsal medial aspect of the left first metatarsal phalangeal joint. Loading the first metatarsal phalangeal joint there was a significant decrease in dorsiflexion with osseous and range of motion, measured 15 degrees of dorsiflexion intraoperatively. Proceed with planned procedure of left first metatarsal phalangeal joint fusion. A dorsal medial incision was made at the first metatarsal phalangeal joint through skin with a #15 blade with dissection carried down through skin to the layer of subcutaneous tissue and periosteum utilizing sharp and blunt technique. Care was taken to retract and preserve neurovascular and tendinous structures. All bleeders were ligated and cauterized as necessary. Capsular incision was performed and the head of the first metatarsal and base of the proximal phalanx were remodeled of their osteophytes down to normal contour and anatomy. The head of the first metatarsal and base of the proximal phalanx were denuded of articular surface with cone and cup reamers on hand power, subchondral drilling was performed with fenestrating drill bit. The incision was irrigated with saline solution followed by further subchondral drilling for autologous bone graft. The left hallux was held in slight valgus, slight dorsiflexion and neutral in the frontal plane and temporarily fixated with a K wire. When simulating weightbearing with a flat surface intraoperatively the hallux was noted to be in a optimal position with the help of the great toe making contact barely with the flat weightbearing surface. The arthrodesis was then fixated utilizing a dorsal locking plate by Estefanía with 2.7 millimeter screws distally and 3.5 millimeter screws proximally and a 3 mm homerun screw from proximal medial to distal lateral with excellent bony apposition and compression noted. On the AP, bleak and lateral views excellent placement of hardware and alignment of the arthrodesis site was appreciated on all 3 views. The incision was irrigated with saline solution. The incision was then closed in a layered fashion with periosteum reapproximated and the capsule reapproximated with 3-0 Vicryl, subcutaneous tissue with 4-0 Vicryl and skin with 4-0 nylon. The incision was dressed with Adaptic, sterile 4 x 4's, Kerlix and Krishna wrap followed by application of a cam boot to the left lower extremity. The tourniquet was deflated and a prompt hyperemic response was noted to the distal digits of the left foot. Patient tolerated the procedure and anesthesia well and was transferred to the PACU with vital signs stable and vascular status intact. Following a period of postoperative monitoring she will be discharged home and is to be nonweightbearing and elevate her left foot while resting. May heel touch for transfers with cam boot. Was given at home care instructions, scheduled follow-up and my cell phone number to contact me with any postoperative questions or concerns
[2023-06-15] MEDS: clindamycin 600 MG/50 ML PREMIX 100 MG IV (08:03)
[2023-06-15] MEDS: BUPivacaine 0.5% INJ 30 mL INJECTION (08:26)
[2023-06-15] MEDS: BUPivacaine liposome 13.3 mg/mL SDV 10 mL 133 MG INFILTRATI (08:27)
--- NOTE | 2023-06-15 09:00 | XR_ITS ---
WS: [id number] XR foot LT min 3V* [id number] REASON FOR EXAM: post op FINDINGS: No comparison examination. Plate and screw arthrodesis of the first MP joint. Surgical appliances are intact and in proper position and alignment. Normal alignment of the first MP joint. IMPRESSION: Postoperative left foot with no significant abnormality.
--- NOTE | 2023-06-15 12:22 | ANE.PACU2 ---
Inpatient post-anesthesia follow up: Airway intact: Yes Vital signs: Temperature 97.2 F Pulse Rate 68 Respiratory Rate 17 Blood Pressure 134/75 Pulse Oximetry 99 Oxygen Delivery Me thod Room Air Oxygen Flow Rate 6 Fraction of Inspir ed Oxygen Hydration adequate: Yes Nausea and vomiting: No Pain level: 1 Mental status: Baseline
== END 2023-06-15 10:05 | disposition home or self-care (01) ==
PROVIDERS: PCP Family Medicine; Visit Provider Podiatrist Foot & Ankle Surgery
PROC: (CPT 28740; principal; 2023-06-15 07:45)
DX: M20.22 Hallux rigidus, left foot (principal); Z87.891 Personal history of nicotine dependence; I25.10 Atherosclerotic heart disease of native coronary artery without angina pectoris; K21.9 Gastro-esophageal reflux disease without esophagitis; E78.5 Hyperlipidemia, unspecified; Z79.82 Long term (current) use of aspirin; E03.9 Hypothyroidism, unspecified
CPT/HCPCS: 28750; 73630; C1713; C9290; J1100; J2250; J2371; J2405; J2704; J3490; J7030

== ENCOUNTER → 2023-06-28 14:16 | Outpatient (BNVA) | payer MEDICARE, MEDICAID, SELFPAY | PROVIDERS: PCP Family Medicine; Visit Provider Podiatrist Foot & Ankle Surgery | DX: Z98.890 Other specified postprocedural states (principal); M20.22 Hallux rigidus, left foot | CPT/HCPCS: 73630; 99024 ==

== ENCOUNTER → 2023-07-06 09:30 | Outpatient (BNVA) | payer MEDICARE, MEDICAID, SELFPAY | PROVIDERS: PCP Family Medicine; Visit Provider Physician Assistant | DX: M17.0 Bilateral primary osteoarthritis of knee (principal); M23.305 Other meniscus derangements, unspecified medial meniscus, unspecified knee | CPT/HCPCS: 99213 ==

== ENCOUNTER → 2023-07-16 14:35 | Outpatient (BNVA) | payer MEDICARE, MEDICAID, SELFPAY | PROVIDERS: PCP Family Medicine; Visit Provider Podiatrist Foot & Ankle Surgery | DX: Z98.890 Other specified postprocedural states (principal) | CPT/HCPCS: 73630; 99024 ==

== ENCOUNTER → 2023-08-02 15:10 | Outpatient (BNVA) | payer MEDICARE, MEDICAID, SELFPAY | PROVIDERS: PCP Family Medicine; Visit Provider Podiatrist Foot & Ankle Surgery | DX: Z98.890 Other specified postprocedural states (principal); M20.22 Hallux rigidus, left foot | CPT/HCPCS: 73630; 99024 ==

== ENCOUNTER → 2023-08-08 14:28 | Outpatient (BNVA) | payer MEDICARE, OTHER, SELFPAY | PROVIDERS: PCP Family Medicine; Visit Provider Nurse Practitioner Psychiatric/Mental Health | DX: Z79.899 Other long term (current) drug therapy (principal); F43.12 Post-traumatic stress disorder, chronic; F31.63 Bipolar disorder, current episode mixed, severe, without psychotic features; Z63.4 Disappearance and death of family member; F17.290 Nicotine dependence, other tobacco product, uncomplicated | CPT/HCPCS: 80053; 80061; 80178; 83036 ==

== ENCOUNTER → 2023-09-13 13:03 | Outpatient (BNVA) | payer MEDICARE, MEDICAID, SELFPAY | PROVIDERS: PCP Family Medicine; Visit Provider Physician Assistant | DX: M17.0 Bilateral primary osteoarthritis of knee (principal) | CPT/HCPCS: 20610; 99213; J3301; J9999 ==

== ENCOUNTER → 2023-10-22 11:40 | Outpatient (BNVA) | payer MEDICARE, MEDICAID, SELFPAY | PROVIDERS: PCP Family Medicine; Visit Provider Internal Medicine Cardiovascular Disease | DX: R07.9 Chest pain, unspecified (principal); F17.290 Nicotine dependence, other tobacco product, uncomplicated; F31.63 Bipolar disorder, current episode mixed, severe, without psychotic features; F43.12 Post-traumatic stress disorder, chronic; Z79.891 Long term (current) use of 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; E03.9 Hypothyroidism, unspecified; K21.9 Gastro-esophageal reflux disease without esophagitis; M54.9 Dorsalgia, unspecified; G89.29 Other chronic pain | CPT/HCPCS: 99213 ==

== ENCOUNTER 2023-11-07 23:32 | Emergency (ER) | payer MEDICARE, MEDICAID, SELFPAY ==
[2023-11-07 23:34] VITALS: BP 167/93; PULSE 87; RESP 18; TEMP 37.1; O2SAT 99
--- NOTE | 2023-11-08 00:17 | ED_ITS ---
HPI - Abdominal Pain 2 General: Chief Complaint: Abdominal Pain Stated Complaint: vomit blood severe stomach pain Time Seen by Provider: 11/07/23 23:38 History of Present Illness: 63-year-old female with a history of bip olar disorder and chronic back pain/chronic pain syndrome on narcotic therapy who presents emergency room with abdominal pain, nausea and vomiting. Says about 2 weeks ago she had some vomiting and vomited up some bright red blood. Said she had gotten better but then again today she started having vomiting. She has mid abdominal pain. She says she vomited up some bright red blood again. No coffee-ground emesis. No fevers. No chest pain. No altered mental status. No focal motor deficits. Review of Systems 2 Narrative: Constitutional symptoms: Negative except as documented in HPI. Skin symptoms: Negative except as documented in HPI. Eye symptoms: Negative except as documented in HPI. ENMT symptoms: Negative except as documented in HPI. Respiratory symptoms: Negative except as documented in HPI. Cardiovascular symptoms: Negative except as documented in HPI. Gastrointestinal symptoms: Negative except as documented in HPI. Genitourinary symptoms: Negative except as documented in HPI. Musculoskeletal symptoms: Negative except as documented in HPI. Neurologic symptoms: Negative except as documented in HPI. Psychiatric symptoms: Negative except as documented in HPI. Endocrine symptoms: Negative except as documented in HPI. PFSH ED 2 PFSH: Medical History Vaping nicotine dependence, tobacco product Post-traumatic stress disorder, chronic Bipolar I disorder, most recent episode mixed, severe without psychotic features with anxious distress Psychiatric care Bereavement Loss of parents Loss of Aunt on 11/11/22 Encounter for long-term use of 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 Chronic back pain Chronic sacroiliac pain Genital herpes in women GERD (gastroesophageal reflux disease) Carpal tunnel syndrome, bilateral Atrophic vaginitis Recurrent UTI Mixed incontinence Bilateral low back pain with right-sided sciatica Bipolar disorder Hypothyroidism Surgical History Bariatric surgery status S/P hysterectomy Dr. Underwood-1997 ovaries remain S/P dilatation and curettage age of 19 in [place] S/P gastric bypass [facility]. [id number] H/O LEEP Family History Father Diabetes Stroke Grandmother Cancer breast-ovarian Brother Diabetes Hypertension Mother Thyroid disease Social History Smoking and tobacco/nicotine status: current every day tobacco/nicotine user cigarettes Packs smoked per day: 0.5 Years cigarettes smoked: 0.5 Quit status (tobacco/nicotine): has tried quititng Number of times tried to quit tobacco: 2 Second hand smoke exposure: No Alcohol intake: former Substance/Drug Use: never Marital status: Physical Exam 2 Narrative: EXAM NARRATIVE: General: Alert, no acute distress. Skin: Warm, dry. Head: Normocephalic, atraumatic. Neck: Supple, trachea midline. Eye: Extraocular movements are intact. Ears, nose, mouth and throat: Tacky oral mucosa Cardiovascular: Regular, Normal peripheral perfusion. Respiratory: Lungs are clear to auscultation, respirations are non-labored, breath sounds are equal, Symmetrical chest wall expansion. Gastrointestinal: Soft, moderate periumbilical abdominal pain. Non distended, Normal bowel sounds. Musculoskeletal: Normal ROM, no deformity. Neurological: Alert and oriented, No focal neurological deficit observed. Psychiatric: Cooperative, appropriate mood & affect. Course 2 Vital Signs: Vital signs: Vital Signs Temperature 98.8 F 11/07/23 23:34 Pulse Rate 63 11/08/23 03:30 Respiratory Rate 16 11/08/23 03:30 Blood Pressure 150/68 11/08/23 03:30 Pulse Oximetry 97 11/08/23 03:30 Oxygen Delivery Me thod Room Air 11/08/23 02:30 MDM - Abdominal Pain Medical Decision Making Medical decision making: Differential diagnosis for this patient with nausea and vomiting including but not limited to and based on the above HPI, review of systems and physical exam: Urinary tract infection. Appendicitis. Cholecystis. colitis. small bowel obstruction. crohn's flare. pancreatitis. gastritis. peptic ulcer. cyclic vomiting. Viral illness. Influenza. COVID. - Workup - labwork and imaging ordered to evaluate, rule in and rule out above pathologies. Lab Review: Laboratory results were reviewed and interpreted by myself the emergency room physician. No leukocytosis. White count was 7. Hemoglobin is 12.6. BUN and creatinine are 18 and 0.9. She might have some mild dehydration. Urinary tract infection was evident on urinalysis. CT of the abdomen pelvis with contrast: This shows no acute intra-abdominal pathologies. This was reviewed and interpreted by myself the emergency room physician. I also reviewed the radiology report. I reviewed the patient's medical record. Reexamination: Patient remained stable. No increased work of breathing. No altered mental status. No focal motor deficits. Assessment and plan: Urinary tract infection Dehydration ?IV fluids, IV Zofran and IV Toradol - Discharged home - Discussed findings and plan with patient. Answered any questions. - All laboratory values were reviewed and interpreted personally by myself, the ER physician - All imaging was reviewed and interpreted personally by myself, the ER physician. - Evaluation and treatment of this problem were appropriate in the emergency setting Lab Data 11/08/23 00:36 11/08/23 00:36 Labs/Radiology: Radiology Impressions Abdomen/Pelvis CT 11/08/23 01:42 IMPRESSION: Negative for acute abdominopelvic pathology. Laboratory Results WBC 7.73 10^3/uL (3.29-11.43) 11/08/23 00:36 RBC 4.25 10^6/uL (3.85-5.65) 11/08/23 00:36 Hgb 12.60 g/dL (11.27-16.99) 11/08/23 00:36 Hct 37.8 % (36-47) 11/08/23 00:36 MCV 88.9 fl (85-98) 11/08/23 00:36 MCH 29.6 pg (27-33) 11/08/23 00:36 MCHC 33.3 g/dL (30-55) 11/08/23 00:36 RDW 14.2 % (12.1-15.1) 11/08/23 00:36 Plt Count 270 10^3/cmm (157-399) 11/08/23 00:36 MPV 8.9 fL (7.4-10.4) 11/08/23 00:36 Neut % (Auto) 64.5 % 11/08/23 00:36 Lymph % (Auto) 26.4 % 11/08/23 00:36 Major % (Auto) 6.0 % 11/08/23 00:36 Eos % (Auto) 2.1 % 11/08/23 00:36 Baso % (Auto) 0.6 % 11/08/23 00:36 Neut # (Auto) 4.99 10^3/uL (1.8-7.7) 11/08/23 00:36 Lymph # (Auto) 2.0 10^3/uL (0.8-4.8) 11/08/23 00:36 Major # (Auto) 0.5 10^3/uL (0.2-0.9) 11/08/23 00:36 Eos # (Auto) 0.2 10^3/uL (0.0-0.8) 11/08/23 00:36 Baso # (Auto) 0.1 10^3/uL (0.0-0.1) 11/08/23 00:36 Nucleated RBC % (auto) 0 % 11/08/23 00:36 Nucleated RBCs # 0.0 /100WBC 11/08/23 00:36 Sodium 139 mmol/L (136-145) 11/08/23 00:36 Potassium 4.3 mmol/L (3.5-5.1) 11/08/23 00:36 Chloride 105 mmol/L (98-107) 11/08/23 00:36 Carbon Dioxide 24 mmol/L (22-29) 11/08/23 00:36 Anion Gap 14.3 (5-19) 11/08/23 00:36 BUN 18 mg/dL (8-23) 11/08/23 00:36 Creatinine 0.9 mg/dL (0.5-0.9) 11/08/23 00:36 GFR Calculation 63.7 mL/min (90-130) L 11/08/23 00:36 Glucose 103 mg/dL (65-115) 11/08/23 00:36 Calculated Osmolality 290 mOsm/kg (285-295) 11/08/23 00:36 Lactic Acid 0.5 mmol/L (0.5-2.2) 11/08/23 01:22 Calcium 9.3 mg/dL (8.5-10.5) 11/08/23 00:36 Total Bilirubin 0.2 mg/dL (0.15-1.2) 11/08/23 00:36 AST 16 U/L (0-32) 11/08/23 00:36 ALT 11 U/L (0-33) 11/08/23 00:36 Alkaline Phosphatase 166 U/L (35-105) H 11/08/23 00:36 C-Reactive Protein 3.0 mg/L (0.0-4.9) 11/08/23 00:36 Total Protein 6.2 g/dL (6.6-8.7) L 11/08/23 00:36 Albumin 4.0 g/dL (3.5-5.2) 11/08/23 00:36 Globulin 2.2 g/dL (1.3-4.6) 11/08/23 00:36 Lipase 45 U/L (13-60) 11/08/23 00:36 Urine Color Yellow (Yellow) 11/08/23 00:36 Urine Appearance Slightly cloudy (CLEAR) 11/08/23 00:36 Urine pH 6 (5-7) 11/08/23 00:36 Ur Specific [place] 1.015 (1.005-1.030) 11/08/23 00:36 Urine Protein Neg (Negative) 11/08/23 00:36 Urine Glucose (UA) Norm (Normal) 11/08/23 00:36 Urine Ketones Negative (Negative) 11/08/23 00:36 Urine Blood 2+ (Negative) H 11/08/23 00:36 Urine Nitrate Negative (Negative) 11/08/23 00:36 Urine Bilirubin Neg (Negative) 11/08/23 00:36 Urine Urobilinogen Neg mg/dL (Negative) 11/08/23 00:36 Ur Leukocyte Esterase 2+ (Negative) H 11/08/23 00:36 Urine RBC 0-4 /hpf (0-2) H 11/08/23 00:36 Urine WBC 25-40 /hpf (0-5) H 11/08/23 00:36 Ur Squamous Epith Cells None /hpf (0-5) 11/08/23 00:36 Amorphous Sediment Not Reportable 11/08/23 00:36 Urine Bacteria 2+ /hpf (NONE) H 11/08/23 00:36 Urine Yeast Trace /hpf 11/08/23 00:36 Ethyl Alcohol < 10 mg/dL (0-10) 11/08/23 00:36 All radiology interpretation(s) finalized by discharge Discharge Plan Discharge Patient Disposition: Home Clinical Impression: Urinary tract infection Qualifiers: Urinary tract infection type: acute cystitis Hematuria presence: without hematuria Qualified Code(s): N30.00 - Acute cystitis without hematuria Condition: Stable Prescriptions: New ondansetron 8 mg tablet,disintegrating 8 mg PO .q6 PRN (Reason: nausea and vomiting) Qty: 14 0RF ciprofloxacin HCl 500 mg tablet 500 mg PO BID 7 Days Qty: 14 0RF No Action diclofenac sodium [Voltaren Arthritis Pain] 1 % gel 4 g topical QID Qty: 100 0RF Rx Instructions: apply to single knee trazodone 100 mg tablet 200 mg PO .QHS PRN (Reason: sleep) Qty: 180 2RF Rx Instructions: Take one to two tablets at bedtime as needed for sleep venlafaxine [Effexor XR] 37.5 mg capsule,extended release 24hr 37.5 mg PO .morning Qty: 90 2RF Rx Instructions: Take one capsule every morning lamotrigine [Lamictal] 200 mg tablet 200 mg PO .evening Qty: 90 2RF Rx Instructions: Take one tablet every evening lithium carbonate 300 mg capsule 300 mg PO BEDTIME Qty: 90 2RF Rx Instructions: Take one capsule at bedtime ziprasidone HCl [Geodon] 20 mg capsule 20 mg PO BID Qty: 180 2RF Rx Instructions: Take one capsule in am and evening with 500 calorie meals valacyclovir 500 mg tablet PO (DME) Crutches See Rx Instructions .Route .MEDSUPPLY Qty: 1 0RF Rx Instructions: As directed Home hydrocodone-acetaminophen 7.5-325 mg tablet 1 tab PO Q6H PRN (Reason: pain) 7 Days Qty: 20 0RF pravastatin 10 mg tablet See Rx Instructions .ROUTE .COMPLEX Qty: 90 1RF Dose Instruction: TAKE 1 TABLET BY MOUTH EVERY DAY Rx Instructions: TAKE 1 TABLET BY MOUTH EVERY DAY meloxicam 15 mg tablet See Rx Instructions .ROUTE .COMPLEX Qty: 30 0RF Dose Instruction: TAKE 1 TABLET BY MOUTH EVERY DAY Rx Instructions: TAKE 1 TABLET BY MOUTH EVERY DAY aspirin 81 mg tablet,delayed release (DR/EC) 81 mg PO DAILY Qty: 30 0RF Discharge Orders: Discharge ED (Routine); Ordered 11/08/23 Ordered By: Georgia Watson Referrals: Ro Finney DO [Primary Care Provider] - 1-3 days Discharge Diet: Usual diet Discharge Activity: Resume usual activity Patient Instructions: Urinary Tract Infection in Women (ED) Activity Restrictions/Additional Instructions: Thank you for choosing [facility] for your healthcare needs today. Please realize this is an emergency room and that we are providing you with a medical screening exam and this may not be complete and all inclusive of all the testing and or work up that you may need to determine your ailment or severity of your illness. You have been screened and evaluated and felt safe for discharge. Health conditions do change or evolve sometimes and as such it is important that you follow up with your Primary Doctor to be re checked, 3-5 days is a general good time frame for follow up. You are always welcome to return to the ED for re assessment if your symptoms are worsening or you have new concerns Coding Level of Care Code ED Consumer Lender for Shaka Holbrook
[2023-11-08 00:43] LABS: Basophils # 0.1 10^3/uL (0.0-0.1); Basophils % 0.6 %; Eosinophils # 0.2 10^3/uL (0.0-0.8); Eosinophils % 2.1 %; Hematocrit 37.8 % (36-47); Lymphocytes % 26.4 %; Mean Corpuscular HGB Conc 33.3 g/dL (30-55); Mean Corpuscular Hemoglobin 29.6 pg (27-33); Mean Corpuscular Volume 88.9 fl (85-98); Mean Platelet Volume 8.9 fL (7.4-10.4); Monocytes # 0.5 10^3/uL (0.2-0.9); Neutrophils # 4.99 10^3/uL (1.8-7.7); Neutrophils % 64.5 %; Nucleated Red Blood Cells % 0 %; Platelet Count 270 10^3/cmm (157-399); Red Blood Count 4.25 10^6/uL (3.85-5.65); Red Cell Distribution Width 14.2 % (12.1-15.1); White Blood Count 7.73 10^3/uL (3.29-11.43)
[2023-11-08] MEDS: sodium chloride 0.9% 1,000 ML 999 ML IV (00:43)
[2023-11-08] MEDS: ondansetron 2 mg/ML SDV 2 mL 8 MG IVP (00:44)
[2023-11-08] MEDS: pantoprazole 40 mg SDV 80 MG IVP (00:47)
[2023-11-08 00:57] LABS: Bilirubin Urine Neg (Negative); Blood Urine 2+ (Negative); Glucose Urine UA Norm (Normal); Ketones Urine Negative (Negative); Leukocyte Esterase Urine 2+ (Negative); Nitrate Urine Negative (Negative); Protein Urine Neg (Negative); Specific Gravity, Urine 1.015 (1.005-1.030); Urine Appearance Slightly Cloudy (CLEAR); Urine Color Yellow (Yellow); Urobilinogen Urine Neg (Negative); pH Urine 6 (5-7)
[2023-11-08 01:00] VITALS: BP 135/83; PULSE 66; RESP 16; O2SAT 91
[2023-11-08 01:01] LABS: Bacteria Urine 2+ /hpf
[2023-11-08 01:02] LABS: Alanine Aminotransferase 11 U/L (0-33); Alkaline Phosphatase 166 U/L (35-105); Anion Gap 14.3 (5-19); Aspartate Amino Transferase 16 U/L (0-32); Blood Urea Nitrogen 18 mg/dL (8-23); Calcium 9.3 mg/dL (8.5-10.5); Carbon Dioxide 24 mmol/L (22-29); Chloride 105 mmol/L (98-107); Creatinine Clr Calc Pharmacy 65.9732; Globulin 2.2 g/dL (1.3-4.6); Glomerular Filtration Rate 63.7 mL/min (90-130); Glucose 103 mg/dL (65-115); Lipase 45 U/L (13-60); Osmolality Calculated 290 mOsm/kg (285-295); Potassium 4.3 mmol/L (3.5-5.1); RBC Urine 0-4 /hpf (0-2); Sodium 139 mmol/L (136-145); Total Bilirubin 0.2 mg/dL (0.15-1.2); Total Protein 6.2 g/dL (6.6-8.7); WBC Urine 25-40 /hpf (0-5)
[2023-11-08 01:03] LABS: Add Urine Culture? Yes
[2023-11-08 01:04] LABS: Alcohol Level < 10 mg/dL (0-10)
[2023-11-08 01:30] VITALS: BP 141/84; PULSE 69; RESP 16; O2SAT 95
--- NOTE | 2023-11-08 01:42 | CTR_ITS ---
PROCEDURE INFORMATION: Exam: CT Abdomen And Pelvis Without Contrast Exam date and time: 11/08/2023 1:50 AM Age: 63 years old Clinical indication: Abdominal tenderness; Prior surgery; Surgery date: 6+ months; Surgery type: Gastric bypass, hyst; Additional info: Abdominal pain TECHNIQUE: Imaging protocol: Computed tomography of the abdomen and pelvis without contrast. Radiation optimization: All CT scans at this facility use at least one of these dose optimization techniques: automated exposure control; mA and/or kV adjustment per patient size (includes targeted exams where dose is matched to clinical indication); or iterative reconstruction. COMPARISON: CT abdomen pelvis w con* [id number] 08/20/2021 4:58 AM RADIATION DOSE METRICS: Total DLP (mGy-cm): 663.5 FINDINGS: Diaphragm: Hiatal hernia which is unchanged from prior. Liver: Small simple cyst superior anterior right hepatic lobe measures 12 mm diameter. Stable from comparison. Gallbladder and bile ducts: Normal. No calcified stones. No ductal dilation. Pancreas: Normal. No ductal dilation. Spleen: Normal. No splenomegaly. Adrenal glands: Normal. No mass. Kidneys and ureters: Normal. No hydronephrosis. Stomach and bowel: Gastric surgical changes are unchanged from prior. The stomach is decompressed. Negative for bowel wall inflammatory changes. Negative for bowel obstruction. Negative for perforation. Negative for pneumatosis intestinalis. No focal mass. Moderate colonic fecal volume. Appendix: Normal appendix. Intraperitoneal space: Unremarkable. No free air. No significant fluid collection. Vasculature: Unremarkable. No abdominal aortic aneurysm. Lymph nodes: Unremarkable. No enlarged lymph nodes. Urinary bladder: Bladder is decompressed. Reproductive: Hysterectomy. Bones/joints: Unremarkable. No acute fracture. Soft tissues: Unremarkable. CT/CT abdomen pelvis con [id number] IMPRESSION: Negative for acute abdominopelvic pathology.
[2023-11-08 01:46] LABS: Lactic Sepsis W/Reflex 0.5 mmol/L (0.5-2.2)
[2023-11-08 02:00] VITALS: BP 138/75; PULSE 71; RESP 18; O2SAT 95
[2023-11-08 02:30] VITALS: BP 128/80; PULSE 66; RESP 16; O2SAT 96
[2023-11-08] MEDS: meropenem 500 MG in sodium chloride 0.9% (plus) 50 ML 100 MG IV (02:47)
[2023-11-08 03:00] VITALS: BP 131/79; PULSE 69; RESP 18; O2SAT 92
[2023-11-08] MEDS: ketorolac 30 mg/mL INJ IVP (03:29)
[2023-11-08 03:30] VITALS: BP 150/68; PULSE 63; RESP 16; O2SAT 97
== END 2023-11-08 05:06 | disposition home or self-care (01) ==
PROVIDERS: Emergency Provider Emergency Medicine; PCP Family Medicine
DX: N30.00 Acute cystitis without hematuria (principal); Z79.82 Long term (current) use of aspirin; F17.210 Nicotine dependence, cigarettes, uncomplicated
CPT/HCPCS: 36415; 74176; 80053; 80307; 81001; 83605; 83690; 85025; 86140; 87040; 87077; 87086; 87186; 96365; 96375; 99285; C9113; J1885; J2185; J2405; J7030

== ENCOUNTER → 2023-11-28 09:02 | Outpatient (BNVA) | payer MEDICARE, MEDICAID, SELFPAY | PROVIDERS: PCP Family Medicine; Referring Provider Nurse Practitioner Family; Visit Provider Surgery | DX: K21.9 Gastro-esophageal reflux disease without esophagitis; Z98.84 Bariatric surgery status; R10.9 Unspecified abdominal pain | CPT/HCPCS: 82274; 83630; 83993; 99204 ==

== ENCOUNTER 2024-01-08 08:44 | Day surgery (SDC) | payer MEDICARE, SELFPAY ==
[2024-01-08 09:12] VITALS: BP 145/85; PULSE 68; RESP 16; TEMP 36.2; O2SAT 98; BMI 29.5
--- NOTE | 2024-01-08 09:16 | W.PM.OPSFHP ---
Same Day Surgery H&P Indication for Procedure/HPI DATE OF PROCEDURE: January 08, 2024 CHIEF COMPLAINT/INDICATIONFOR SURGICAL PROCEDURE: reflux and altered bowel habits PREOP DIAGNOSIS: reflux and altered bowel habits PLANNED PROCEDURE: Operation Date: 01/08/24 10:00 Proposed Procedures p EGD 31192, 25603, G0105, K21.9,Z12.11(Not Applicable) - Zachary Ernandez MD s Colonoscopy(Not Applicable) - Zachary Ernandez MD Medications/Allergies* Home Medications Medication Instructions Recorded Confirmed Type valacyclovir 500 mg tablet 500 mg PO DAILY 10/17/23 01/08/24 History hydrocodone 5 mg-acetaminophen 325 1 tab PO Q6H pain 12/21/23 01/08/24 History mg tablet meloxicam 15 mg tablet 15 mg PO DAILY 01/03/24 01/08/24 History pravastatin 10 mg tablet 10 mg PO DAILY 01/03/24 01/08/24 History Allergies/Adverse Reactions Allergy/AdvReac Type Severity Reaction Status Date / Time propoxyphene Allergy Severe hives, Verified 01/03/24 09:20 [From Darvocet-N] tongue swelling Sulfa (Sulfonamide Allergy Severe ALGY-Swell Verified 01/03/24 09:20 Antibiotics) Lip/Tongue/Throat cefuroxime [From Ceftin] Allergy unknown Verified 01/03/24 09:20 divalproex sodium Allergy Unknown Verified 01/03/24 09:20 [From Depakote] Pertinent History/Comorbid Conditions* Medical History (Updated 11/16/23 @ 00:02 by KARLO Sena) Vaping nicotine dependence, tobacco product Post-traumatic stress disorder, chronic Bipolar I disorder, most recent episode mixed, severe without psychotic features with anxious distress Psychiatric care Bereavement Loss of parents Loss of Aunt on 11/11/22 Encounter for long-term use of 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 Chronic back pain Chronic sacroiliac pain Genital herpes in women GERD (gastroesophageal reflux disease) Carpal tunnel syndrome, bilateral Atrophic vaginitis Recurrent UTI Mixed incontinence Bilateral low back pain with right-sided sciatica Bipolar disorder Hypothyroidism Surgical History (Updated 06/24/23 @ 15:46 by [place] Sidhu DPM) Bariatric surgery status S/P hysterectomy Dr. Underwood-1997 ovaries remain S/P dilatation and curettage age of 19 in [place], [place] S/P gastric bypass [facility]. [id number] H/O BRINA Family History (Updated 05/21/19 @ 10:14 by Aurora Hopkins LPN) Diabetes Father Brother Cancer Grandmother breast-ovarian Hypertension Brother Thyroid disease Mother Stroke Father Social History Smoking and tobacco/nicotine status: current every day tobacco/nicotine user cigarettes Packs smoked per day: 0.5 Years cigarettes smoked: 0.5 Quit status (tobacco/nicotine): has tried quititng Number of times tried to quit tobacco: 2 Second hand smoke exposure: No Alcohol intake: former Substance/Drug Use: never Marital status: Pertinent Exam Findings alert, oriented x 3, clear to auscultation bilaterally and regular rate & rhythm Recommendations Surgery/Procedure today Coding Level of Care Code Acute Code for Chg Yusef
[2024-01-08] MEDS: sodium chloride 0.9% 1,000 ML 30 ML IV (09:17)
--- NOTE | 2024-01-08 10:00 | P.ANESASSM_ITS ---
Pre-Anesthetic Assessment Height/Weight: Height 1.63 m Weight 78.018 kg Temp Pulse Resp BP Pulse Ox O2 Del Method 97.2 F L 68 16 145/85 98 Room Air 01/08/24 09:12 01/08/24 09:12 01/08/24 09:12 01/08/24 09:12 01/08/24 09:12 01/08/24 09:12 Preop Diagnosis: reflux and altered bowel habits Operation Date: 01/08/24 10:00 Proposed Procedures p EGD 83398, 89028, G0105, K21.9,Z12.11(Not Applicable) - Zachary Ernandez MD s Colonoscopy(Not Applicable) - Zachary Ernandez MD Familial anesthetic complications: none Was Beta Alfie taken within 24 hours: N/A Was Clonidine taken within 24 hours: N/A Last intake: Intake Last Liquid Date 01/08/24 Last Liquid Time 00:00 Last Solid Date 01/06/24 Last Solid Time 18:00 Social Tobacco (vapes x2 years, previous smoker) and No alcohol Exam alert, oriented x 3, clear to auscultation bilaterally and regular rate & rhythm Airway Mallampati: Class III Dentition: false History/ROS No significant history except as noted Pulmonary None reported CV/HEM None reported None reported Hepatic None reported GI Gastroesophageal Reflux Disease Metabolic Hyperlipidemia [facility] None reported Neuropsych Bipolar Anesthetic Plan ASA status: 2 Anesthesia: Anesthesia Evaluation and MAC Risk of > 500 ml blood loss (7ml/kg in children): No Medications/Allergies Home Medications Medication Instructions Recorded Confirmed Last Taken Type diclofenac sodium 1 % topical gel 4 g topical QID right knee pain 05/29/23 01/08/24 06/12/23 Rx (Voltaren Arthritis Pain) #100 grams Crutches #1 ea 06/18/23 12/27/23 Unknown Rx lamotrigine 200 mg tablet 200 mg PO .evening #90 tabs 09/27/23 01/08/24 01/07/24 Rx (Lamictal) trazodone 100 mg tablet 200 mg (2 x 100 mg) PO .QHS PRN 09/27/23 01/08/24 01/07/24 Rx sleep #180 tabs valacyclovir 500 mg tablet 500 mg PO DAILY 10/17/23 01/08/24 01/07/24 History ondansetron 8 mg disintegrating 8 mg PO .q6 PRN nausea and 11/08/23 01/08/24 Unknown Rx tablet vomiting #14 tabs hydrocodone 5 mg-acetaminophen 325 1 tab PO Q6H pain 12/21/23 01/08/24 01/07/24 History mg tablet lithium carbonate 300 mg capsule 300 mg PO BEDTIME #90 caps 12/27/23 01/08/24 01/07/24 Rx ziprasidone HCl 20 mg capsule 20 mg PO BID #180 caps 12/27/23 01/08/24 01/07/24 Rx (Geodon) meloxicam 15 mg tablet 15 mg PO DAILY 01/03/24 01/08/24 01/03/24 History pravastatin 10 mg tablet 10 mg PO DAILY 01/03/24 01/08/24 01/07/24 History Allergies Allergy/AdvReac Type Severity Reaction Status Date / Time propoxyphene Allergy Severe hives, Verified 01/03/24 09:20 [From Darvocet-N] tongue swelling Sulfa (Sulfonamide Allergy Severe ALGY-Swell Verified 01/03/24 09:20 Antibiotics) Lip/Tongue/Throat cefuroxime [From Ceftin] Allergy unknown Verified 01/03/24 09:20 divalproex sodium Allergy Unknown Verified 01/03/24 09:20 [From Depakote] Current Medications Generic Name Dose Route Start Last Admin Trade Name Freq PRN Reason Stop Dose Admin Sodium Chloride 1,000 mls @ 30 mls/hr 01/08/24 09:00 01/08/24 09:17 Sodium Chloride 0.9% IV 30 mls/hr .Q24H MIGUEL ANGEL Administration PFS Anesthesia Medical History (Updated 11/28/23 @ 15:38 by Lillie Otto MA) Vaping nicotine dependence, tobacco product Post-traumatic stress disorder, chronic Bipolar I disorder, most recent episode mixed, severe without psychotic features with anxious distress Psychiatric care Bereavement Loss of parents Loss of Aunt on 11/11/22 Encounter for long-term use of 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 Chronic back pain Chronic sacroiliac pain Genital herpes in women GERD (gastroesophageal reflux disease) Carpal tunnel syndrome, bilateral Atrophic vaginitis Recurrent UTI Mixed incontinence Bilateral low back pain with right-sided sciatica Bipolar disorder Hypothyroidism Surgical History Bariatric surgery status S/P hysterectomy Dr. Underwood-1997 ovaries remain S/P dilatation and curettage age of 19 [place] S/P gastric bypass [facility]. [id number] H/O LEEP Family History Father Diabetes Stroke Grandmother Cancer breast-ovarian Brother Diabetes Hypertension Mother Thyroid disease Social History Smoking and tobacco/nicotine status: current every day tobacco/nicotine user cigarettes Packs smoked per day: 0.5 Years cigarettes smoked: 0.5 Quit status (tobacco/nicotine): has tried quititng Number of times tried to quit tobacco: 2 Second hand smoke exposure: No Alcohol intake: former Substance/Drug Use: never Marital status: Data Anesthesia Cardiac Studies: Sestamibi Stress Test (Cardiology) 10/25 Holter Monitor 05/18/22
[2024-01-08 10:35] VITALS: BP 93/59; PULSE 61; RESP 18; TEMP 36.4; O2SAT 95
[2024-01-08 10:44] VITALS: BP 109/79; PULSE 71; RESP 18; TEMP 36.5; O2SAT 98
[2024-01-08 10:54] VITALS: PULSE 71; RESP 18; TEMP 36.5
--- NOTE | 2024-01-08 11:10 | ANE.PACU2 ---
Inpatient post-anesthesia follow up: Airway intact: Yes Vital signs: Temperature 97.7 F Pulse Rate 71 Respiratory Rate 18 Blood Pressure 109/79 Pulse Oximetry 98 Oxygen Delivery Me thod Room Air Oxygen Flow Rate Fraction of Inspir ed Oxygen Hydration adequate: Yes Nausea and vomiting: No Pain level: 1 Mental status: Baseline
== END 2024-01-08 11:10 | disposition home or self-care (01) ==
PROVIDERS: PCP Family Medicine; Visit Provider Surgery
PROC: 0DJ08ZZ Inspection of Upper Intestinal Tract, Via Natural or Artificial Opening Endoscopic (ICD-10-PCS; CPT 43235; principal; 2024-01-08 10:00)
PROC: 0DJD8ZZ Inspection of Lower Intestinal Tract, Via Natural or Artificial Opening Endoscopic (ICD-10-PCS; CPT 45378; 2024-01-08 10:00)
DX: Z12.11 Encounter for screening for malignant neoplasm of colon (principal); K21.00 Gastro-esophageal reflux disease with esophagitis, without bleeding; K29.50 Unspecified chronic gastritis without bleeding; E78.5 Hyperlipidemia, unspecified; E03.9 Hypothyroidism, unspecified; F17.210 Nicotine dependence, cigarettes, uncomplicated
CPT/HCPCS: 43239; 45378; 88305; 88342; J2704; J7030

== ENCOUNTER → 2024-02-05 08:55 | Outpatient (BNVA) | payer MEDICARE, SELFPAY | PROVIDERS: PCP Family Medicine; Visit Provider Surgery | DX: Z09 Encounter for follow-up examination after completed treatment for conditions other than malignant neoplasm (principal) | CPT/HCPCS: 99213 ==

== ENCOUNTER → 2024-02-22 10:18 | Outpatient (BNVA) | payer MEDICARE, SELFPAY | PROVIDERS: PCP Family Medicine; Visit Provider Physician Assistant | DX: M17.0 Bilateral primary osteoarthritis of knee (principal) | CPT/HCPCS: 20610; 99213; J3301 ==

== ENCOUNTER 2024-04-08 09:31 | Outpatient (CLI) | payer MEDICARE, SELFPAY ==
--- NOTE | 2024-04-08 09:47 | XR_ITS ---
WS: [id number] Exam: XR shoulder RT min 2V* [id number] Date/Time of Exam: 04/08/2024 9:47 AM Reason For Exam: RT SHOULDER PAIN No acute fracture. Mild degenerative change of the glenohumeral joint. Cortical defect along the late ral aspect of the humeral head that might be secondary to prior dislocation. XR/XR shoulder RT min 2V* [id number] IMPRESSION: 1. Minimal DJD. No fracture. 2. Possible Hill-Sachs lesion of the humeral head that might be secondary to pr ior dislocation.
== END 2024-04-08 09:32 | disposition home or self-care (01) ==
PROVIDERS: PCP Family Medicine; Visit Provider Student in an Organized Health Care Education/Training Program
DX: M25.511 Pain in right shoulder (principal); R93.7 Abnormal findings on diagnostic imaging of other parts of musculoskeletal system
CPT/HCPCS: 73030

== ENCOUNTER → 2024-05-02 08:58 | Outpatient (BNVA) | payer MEDICARE, SELFPAY | PROVIDERS: PCP Family Medicine; Visit Provider Physician Assistant | DX: M25.561 Pain in right knee (principal); M25.562 Pain in left knee; G89.29 Other chronic pain; M17.0 Bilateral primary osteoarthritis of knee; M23.304 Other meniscus derangements, unspecified medial meniscus, left knee; R03.0 Elevated blood-pressure reading, without diagnosis of hypertension | CPT/HCPCS: 99213 ==

== ENCOUNTER → 2024-06-12 13:47 | Outpatient (BNVA) | payer MEDICARE, SELFPAY | PROVIDERS: PCP Family Medicine; Visit Provider Physician Assistant | DX: M17.0 Bilateral primary osteoarthritis of knee (principal); M25.561 Pain in right knee; M25.562 Pain in left knee; G89.29 Other chronic pain; Z71.89 Other specified counseling | CPT/HCPCS: 20610; 73560; 73565; 99213; J3301 ==

== ENCOUNTER → 2024-07-22 14:26 | Outpatient (BNVA) | payer MEDICARE, OTHER, SELFPAY | PROVIDERS: PCP Family Medicine; Visit Provider Nurse Practitioner Psychiatric/Mental Health | DX: Z79.899 Other long term (current) drug therapy (principal) | CPT/HCPCS: 80053; 80061; 80178; 83036 ==

== ENCOUNTER → 2024-08-26 09:51 | Outpatient (BNVA) | payer OTHER, MEDICAID, SELFPAY | PROVIDERS: PCP Family Medicine; Visit Provider Physician Assistant | DX: M17.0 Bilateral primary osteoarthritis of knee (principal); Z71.89 Other specified counseling; M23.303 Other meniscus derangements, unspecified medial meniscus, right knee | CPT/HCPCS: 20610; 99213; J7318 ==

== ENCOUNTER 2024-10-02 15:43 | Outpatient (CLI) | payer OTHER, MEDICAID, SELFPAY ==
--- NOTE | 2024-10-02 16:00 | MR_ITS ---
WS: [id number] MRI RIGHT KNEE HISTORY: knee pain COMPARISON: Radiograph 06/12/2024 Anterior cruciate ligament: Mild thickening and intermediate signal throughout the ACL but no tear. Posterior cruciate ligament: Intact. Medial collateral ligament: Intact. Posterior lateral corner structures: There is fluid between the biceps femoris tendon and the popliteus tendon. Suspect there is a small amount of increased T2 signal in the popliteus tendon at the femoral condyle. No tear identified. This may be a small ganglion or distended bursa along the lateral knee. Medial menisci: Small caliber menisci but the shape is normal. No tear identified. Lateral meniscus: Abnormal signal throughout a small caliber anterior horn. Posterior horn which is slightly subluxed from the joint. Slight blunting of the free edge. Extensor mechanism: Distal quadriceps tendon and patellar tendons are intact. Fluid and soft tissue: Small suprapatellar joint effusion. Small Thomas's cyst. Osseous and articular structures: Patellofemoral compartment: Severe patellofemoral joint narrowing with complete loss of cartilage. Subchondral cystic changes at the patellar eminence and over the lateral facet. Slight lateral displacement of the patella. Intermediate signal within the patellar retinaculum. Medial compartment: Moderate narrowing of the medial compartment. Loss of cartilage with marginal osteophytes. Subchondral edema at the base of the tibial spines. Increased T2 signal in the posterior femoral condyle. This is along the nonweightbearing surface. Lateral compartment: Severe narrowing of the lateral compartment. There is bone upon bone with complete loss of cartilage. Cortical irregularities along the tibial plateau and femoral condyle surface. Subchondral edema in the femoral condyle and the tibial plateau. Osteochondral defect along the posterior femoral condyle measures 5.6 mm. Osteochondral defect is surrounded by edema. MR/MR knee RT wo con* [id number] IMPRESSION: 1. Severe lateral compartment arthropathy with joint space narrowing, loss of cartilage and subchondral edema. 2. Complex tear anterior horn lateral meniscus, tear extends to the surfaces. Slight blunting of the free edge posterior horn lateral meniscus. 3. Small lobulated cystic mass between the biceps femoris tendon and the popli teus tendon may be a small ganglion or fluid-filled bursa. 4. Severe patellofemoral joint space narrowing with complete loss of cartilage , greater degenerative arthropathy involving the lateral facet. 5. Subchondral cystic changes in the patellar eminence and over the lateral fa cet. 6. Slight lateral subluxation of the patella. 7. Moderate narrowing medial compartment with loss of cartilage and marginal o steophytes. 8. Osteochondral defect on the posterior femoral condyle measures 5.[address] is surrounded by marrow edema. 9. ACL mucoid degeneration. 10. Small Thomas's cyst.
== END 2024-10-02 15:44 | disposition home or self-care (01) ==
PROVIDERS: PCP Family Medicine; Visit Provider Physician Assistant
DX: M25.561 Pain in right knee (principal); M23.306 Other meniscus derangements, unspecified meniscus, right knee
CPT/HCPCS: 73721

== ENCOUNTER 2024-11-05 10:19 | Outpatient (CLI) | payer OTHER, MEDICAID, SELFPAY ==
--- NOTE | 2024-11-05 10:25 | XR_ITS ---
WS: [id number] Right hand, 3 views, 11/05/2024 Clinical Data: CRUSHING INJURY OF R MIDDLE FINGER Comparison: Right wrist, 01/13/2020 Findings: No fractures or dislocations are seen. There is soft tissue swelling of the right third finger. The joint spaces are normal XR/XR hand RT min 3V* [id number] Impression: Negative right hand.
== END 2024-11-05 10:20 | disposition home or self-care (01) ==
LOC: RAD 10:21
PROVIDERS: PCP Family Medicine; Visit Provider Nurse Practitioner Family
DX: S67.192A Crushing injury of right middle finger, initial encounter (principal); X58.XXXA Exposure to other specified factors, initial encounter
CPT/HCPCS: 73130

== ENCOUNTER → 2024-12-09 09:39 | Outpatient (BNVA) | payer OTHER, MEDICAID, SELFPAY | PROVIDERS: PCP Family Medicine; Visit Provider Physician Assistant | DX: M17.0 Bilateral primary osteoarthritis of knee (principal); Z71.89 Other specified counseling | CPT/HCPCS: 20610; 99213; J3301; J9999 ==

== ENCOUNTER → 2025-02-11 09:58 | Outpatient (BNVA) | payer OTHER, MEDICAID, SELFPAY | PROVIDERS: PCP Family Medicine; Visit Provider Student in an Organized Health Care Education/Training Program | DX: M25.561 Pain in right knee (principal); M25.562 Pain in left knee; M17.11 Unilateral primary osteoarthritis, right knee | CPT/HCPCS: 73560; 73565; 99214 ==

== ENCOUNTER → 2025-02-12 09:39 | Outpatient (BNVA) | payer MEDICARE, OTHER, SELFPAY | PROVIDERS: PCP Family Medicine; Visit Provider Nurse Practitioner Psychiatric/Mental Health | DX: Z79.899 Other long term (current) drug therapy (principal) | CPT/HCPCS: 80053; 80178; 82306; 82607 ==

== ENCOUNTER → 2025-03-03 11:51 | Outpatient (BNVA) | payer MEDICARE, MEDICAID, SELFPAY | PROVIDERS: PCP Family Medicine; Visit Provider Registered Nurse Neonatal Intensive Care | DX: Z01.818 Encounter for other preprocedural examination (principal) | CPT/HCPCS: 80053; 81000; 85025 ==

== ENCOUNTER → 2025-03-10 09:29 | Outpatient (BNVA) | payer MEDICARE, MEDICAID, SELFPAY | PROVIDERS: PCP Family Medicine; Visit Provider Physician Assistant | DX: M17.11 Unilateral primary osteoarthritis, right knee (principal) | CPT/HCPCS: 99213 ==

== ENCOUNTER 2025-03-18 16:50 | Outpatient (CLI) | payer OTHER, MEDICAID, SELFPAY ==
--- NOTE | 2025-03-18 17:15 | CT_ITS ---
WS: [id number] CT RIGHT KNEE, NONCONTRAST [facility] TECHNIQUE: Noncontrast CT of the RIGHT knee to include the RIGHT hip and ankle. CLINICAL INFORMATION: surgical planning COMPARISON: None. DLP: 969.[address] scans at [facility] use at least one of these dose optimization techniques: automated exposure control; mA and/or kV adjustment per patient size (includes targeted exams where dose is matched to clinical indication); or iterative reconstruction. FINDINGS: Moderate to advanced tricompartmental arthritis RIGHT knee. Hypertrophic patella. Hypertrophic change along the joint line. Lateral subluxation of the patella. Small suprapatellar effusion. Vascular calcification. Small lobulated popliteal cyst. Moderate degenerative narrowing both hips. Sigmoid diverticulosis. CT/CT knee RT [facility] [id number] IMPRESSION: Images obtained for preoperative purposes.
== END 2025-03-18 16:51 | disposition home or self-care (01) ==
LOC: RAD 16:51
PROVIDERS: PCP Family Medicine; Visit Provider Student in an Organized Health Care Education/Training Program
DX: M17.11 Unilateral primary osteoarthritis, right knee (principal)
CPT/HCPCS: 73700

== ENCOUNTER 2025-03-23 18:00 | Observation (INO) | payer OTHER, MEDICAID, SELFPAY ==
--- OUTSIDE RECORDS SUMMARY | 2024-03-16 03:00 | XMS_ITS ---
Author Organization [facility] Address [address] [place] [address] Care Team Providers Care Developer [employer] Name Role Phone Ro Finney DO Primary Care Provider Unavailab Ad Navarro Unavailable [phone] Migration, Provider Unavailable Unavailable REASON FOR VISIT EMR-Jason Medications Medication SIG (Take, Route, Frequency, Duration) Notes Start Date End Date Status trazodone *[facility]* Active LaMICtal *Pick strength-f orm from [facility] for eRX* Active Geodon *Pick strength-f orm from [facility] for eRX* Active Zoloft *Pick strength-f orm from [facility] for eRX* Active cyclobenzaprine *[facility]* Active Social History Social History Additional Details Category Social Info Options Details Migrated Social History Migrated Social History Alcoholic beverages? - No, Applying for disability? - No, Are you or is there a chance you could be - No, Currently on disability? - Yes, Drug or substance abuse? - No, Education - Grade School, exposure to toxins/poisonous substances at work - No, I am interested in quitting. - No, If yes, frequency of alcoholic beverages - 1 drink per day, Involved in any legal proceedings or lawsuits? - No, Marital Status - , Nonprescription drug use? - No, Participation in detoxification or rehabilitation - No, Smoked in the past? - No, Smoking - No, Smoking status (MU) - <BLANK>, Working currently? - Yes : 6hrs\day Encounters Encounter Location Date Provider Diagnosis Migrated_Facility 0 0 03/16/2024 Provider Migration Plan Of Treatment Next Appt Details Provider Name:Ad Cui, 05/06/2025 09:20:00 AM, [address] [place], [address], Progress Notes * Bobbi FRITZ EDOB:1960 (65 yo F)Acc No.[id number]:03/16/2024 Patient: Bobbi CONSTANTINO :1960 A ge:64 Y S ex:Female Address:[address] [place] [address], [id number] Subjective: * Chief Complaints: * E MR-Jason * Surgical History: gastric sleeve Hysterectomy Neck surgery Toe surgery * Family History: M igrated Family History: : chronic pain, D iabetes, R heumatoid arthritis, S troke.? * Social History: M igrated Social History: M igrated Social History: Alcoholic beverages? - No, A pplying for disability? - No, A re you or is there a chance you could be - No, C urrently on disability? - Yes, D rug or substance abuse? - No, E ducation - Grade School, e xposure to toxins/poisonous substances at work - No, I am interested in quitting. - No, I f yes, frequency of alcoholic beverages - 1 drink per day, I nvolved in any legal proceedings or lawsuits? - No, M arital Status - , N onprescription drug use? - No, P articipation in detoxification or rehabilitation - No, Smoked in the past? - No, S moking - No, S moking status (MU) - <BLANK>, W orking currently? - Yes : 6hrs\day. * Medications: T akingcyclobenzaprine , Notes to Pharmacist: *Reorder from [facility] for eRx and Interaction Alerts*Zoloft , Notes to Pharmacist: *Pick strength-form from [facility] for eRX*trazodone , Notes to Pharmacist: *Reorder from [facility] for eRx and Interaction Alerts*Geodon , Notes to Pharmacist: *Pick strength-form from [facility] for eRX*LaMICtal , Notes to Pharmacist: *Pick strength-form from [facility] for eRX*Taking cyclobenzaprine , Notes to Pharmacist: *Reorder from [facility] for eRx and Interaction Alerts*Taking Zoloft , Notes to Pharmacist: *Pick strength-form from [facility] for eRX*Taking trazodone , Notes to Pharmacist: *Reorder from [facility] for eRx and Interaction Alerts*Taking Geodon , Notes to Pharmacist: *Pick strength- form from [facility] for eRX*Taking LaMICtal , Notes to Pharmacist: *Pick strength-form from [facility] for eRX* * * Date:
[2025-03-23] VITALS (7 sets, daily range): BP systolic 98–133; BP diastolic 58–73; PULSE 89–118; RESP 16–18; TEMP 36.2–36.8; O2SAT 94–100; BMI 30.5; BMI 31.9
[2025-03-23] MEDS: acetaminophen 1,000 MG/100 ML PIGGYBACK 400 MG IV ×2 (09:53→18:19)
[2025-03-23 09:59] LABS: Hematocrit 40.4 % (36-47); Hemoglobin 13.00 g/dL (11.27-16.99); Mean Corpuscular HGB Conc 32.2 g/dL (30-55); Mean Corpuscular Hemoglobin 28.8 pg (27-33); Mean Corpuscular Volume 89.4 fl (85-98); Nucleated Red Blood Cells % 0 %; Platelet Count 267 10^3/cmm (157-399); Red Blood Count 4.52 10^6/uL (3.85-5.65); White Blood Count 6.45 10^3/uL (3.29-11.43)
[2025-03-23 10:24] LABS: Blood Urea Nitrogen 10 mg/dL (8-23); Calcium 9.3 mg/dL (8.5-10.5); Carbon Dioxide 23 mmol/L (22-29); Chloride 109 mmol/L (98-107); Creatinine Clr Calc Pharmacy 65.7688; Glucose 91 mg/dL (65-115); Osmolality Calculated 293 mOsm/kg (285-295); Sodium 142 mmol/L (136-145)
[2025-03-23 10:25] LABS: Anion Gap 14.6 (5-19); Potassium 4.6 mmol/L (3.5-5.1)
--- NOTE | 2025-03-23 10:54 | W.PM.OPSUD ---
Surgery/Procedure H&P Update DATE OF PROCEDURE: March 23, 2025 DATE H&P PERFORMED: 03/10/25 H&P UPDATE INFORMATION: I have reviewed H&P completed within last 30 days, I have examined patient prior to procedure and No changes to prior documentation CHANGES TO PREVIOUS DOCUMENTATION: Patient at this point in time has cleared the preoperative clearance process she has no new complaints at this time no new changes in her overall health since last office visit at this point time she understands the ins and outs of procedure risk benefits complication alternatives surgical nonsurgical treatment options. Understanding risk of surgery she elects proceed with surgical invention for right total knee arthroplasty?Francisco robotic assisted. Patient understands and agrees with current plan. All questions answered. Will proceed with surgery today. PREOP DIAGNOSIS: Right knee DJD PRIMARY INDICATION FOR PROCEDURE: Right knee DJD PLANNED PROCEDURE: Operation Date: 03/23/25 14:00 Proposed Procedures p RIGHT Francisco Robot Total Knee Arthroplasty(Right) - Yang Mattson DO
--- NOTE | 2025-03-23 11:05 | XRR_ITS ---
PROCEDURE INFORMATION: Exam: XR Right Knee Exam date and time: 03/23/2025 5:05 PM Age: 65 years old Clinical indication: Device placement; Joint replacement hardware; Prior surgery; Surgery date: Post-operative (0-2 days); Surgery type: R tka; Additional info: S/P R tka, in pacu TECHNIQUE: Imaging protocol: Radiologic exam of the right knee. Views: 1 or 2 views. COMPARISON: CT knee RT [facility] [id number] 03/18/2025 5:01 PM FINDINGS: Bones/joints: Status post total right knee arthroplasty with normal anatomic alignment and expected postoperative changes. Soft tissues: Normal. XR/XR knee RT 1-2V [id number] IMPRESSION: Status post total right knee arthroplasty with normal anatomic alignment and expected postoperative changes.
--- NOTE | 2025-03-23 13:33 | ANES.PREANE2 ---
Pre-Anesthetic Assessment Height/Weight: Height 5 ft 4 in Weight 178 lb O2 Del Method Room Air 03/23/25 09:34 Preop Diagnosis: Right knee DJD Operation Date: 03/23/25 14:00 Proposed Procedures p RIGHT Francisco Robot Total Knee Arthroplasty(Right) - Yang Mattson, DO Was Beta Alfie taken within 24 hours: N/A Was Clonidine taken within 24 hours: N/A Last intake: Intake Last Liquid Date 03/22/25 Last Liquid Time 23:59 Last Solid Date 03/22/25 Last Solid Time 23:59 Social Tobacco and No alcohol Exam alert, oriented x 3, clear to auscultation bilaterally and regular rate & rhythm Airway Submandibular: within normal limits Cervical ROM: within normal limits Mallampati: Class II Dentition: full Anesthetic Plan ASA status: 2 Anesthesia: MAC and Regional (specify below) Other: No prior issues with anesthesia NPO since yesterday evening Current smoker, vapes nicotine GERD Bipolar disorder on lithium Labs reviewed from today and acceptable for procedure Plan for spinal anesthetic with peripheral nerve block Medications/Allergies Home Medications ?Medication ?Instructions ?Recorded ?Confirmed ?Last Taken ?Type diclofenac sodium 1 % topical gel 4 g topical QID right knee pain 05/29/23 03/23/25 06/12/23 Rx (Voltaren Arthritis Pain) #100 grams meloxicam 15 mg tablet 15 mg PO DAILY 01/03/24 03/23/25 03/22/25 History pantoprazole 40 mg tablet,delayed 40 mg PO BID #60 tabs 01/08/24 03/23/25 03/22/25 Rx release sumatriptan succinate 25 mg tablet See Rx Instructions PO .COMPLEX #9 05/12/24 03/23/25 03/16/25 Rx tabs hydroxyzine pamoate 25 mg capsule 25 mg PO BID PRN anxiety #60 caps 11/11/24 03/23/25 03/22/25 Rx (Vistaril) lamotrigine 200 mg tablet 200 mg PO .evening #90 tabs 11/11/24 03/23/25 03/22/25 Rx (Lamictal) lithium carbonate 300 mg capsule 300 mg PO BEDTIME #90 caps 11/11/24 03/23/25 03/22/25 Rx trazodone 100 mg tablet 200 mg (2 x 100 mg) PO .QHS PRN 11/11/24 03/23/25 03/22/25 Rx sleep #180 tabs ziprasidone HCl 40 mg capsule 40 mg PO .evening #90 caps 02/12/25 03/23/25 03/22/25 Rx (Geodon) sertraline 25 mg tablet 25 mg PO .morning #90 tabs 03/16/25 03/23/25 03/22/25 Rx hydrocodone 7.5 mg-acetaminophen 1 tab PO TID 03/23/25 03/23/25 03/23/25 History 325 mg tablet Allergies Allergy/AdvReac Type Severity Reaction Status Date / Time propoxyphene (From Allergy Severe hives, Verified 03/16/25 14:22 Darvocet-N) tongue swelling Sulfa (Sulfonamide Allergy Severe ALGY-Swell Verified 03/16/25 14:22 Antibiotics) Lip/Tongue/Throat cefuroxime (From Ceftin) Allergy unknown Verified 03/16/25 14:22 divalproex sodium (From Allergy ALGY-Swell Verified 03/23/25 09:00 Depakote) Lip/Tongue/Throat [facility] Anesthesia Medical History Vaping nicotine dependence, tobacco product Post-traumatic stress disorder, chronic Bipolar I disorder, most recent episode mixed, severe without psychotic features with anxious distress Psychiatric care Bereavement Loss of parents Loss of Aunt on 11/11/22 Encounter for long-term use of 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 Chronic back pain Chronic sacroiliac pain Genital herpes in women GERD (gastroesophageal reflux disease) Carpal tunnel syndrome, bilateral Atrophic vaginitis Recurrent UTI Mixed incontinence Bilateral low back pain with right-sided sciatica Hypothyroidism Surgical History Bariatric surgery status S/P hysterectomy Dr. Underwood-1997 ovaries remain S/P dilatation and curettage age of 19 in [place], [place] S/P gastric bypass [facility] [id number] H/O LEEP Family History Father Diabetes Stroke Grandmother Cancer breast-ovarian Brother Diabetes Hypertension Mother Thyroid disease Social History Smoking and tobacco/nicotine status: current every day tobacco/nicotine user (vapes) cigarettes Packs smoked per day: 0.5 Years cigarettes smoked: 0.5 Quit status (tobacco/nicotine): has tried quititng Number of times tried to quit tobacco: 2 Second hand smoke exposure: No Alcohol intake: former Substance/Drug Use: never Marital status: Data Anesthesia 03/23/25 09:50 03/23/25 09:50 Short CBC 03/23/25 Range/Units 09:50 WBC 6.45 (3.29-11.43) 10^3/uL Hgb 13.00 (11.27-16.99) g/dL Hct 40.4 (36-47) % MCV 89.4 (85-98) fl Plt Count 267 (157-399) 10^3/cmm Neut % (Auto) 59.0 % Neut # (Auto) 3.80 (1.8-7.7) 10^3/uL BMP 03/23/25 09:50 Sodium 142 Potassium 4.6 Chloride 109 H Carbon Dioxide 23 BUN 10 Creatinine 0.9 Glucose 91 Calcium 9.3 Blood Bank 03/23/25 09:50 Blood Type O Positive Rho(D) Type Rh positive Antibody Screen Positive Cardiac Studies: Sestamibi Stress Test (Cardiology) 10/25/22 Holter Monitor 05/18/22
--- NOTE | 2025-03-23 14:08 | ANES.PROC ---
Anesthesia Procedures Procedure/Date: 03/23/25 Right adductor canal block for postoperative pain control Nerve Block ^: Nerve Block 1: Main Anesthesia: spinal anesthesia block Time Out Performed: Yes Consent: requested by attending/covering physician and from patient Laterality: Right Nerve block location: adductor canal Anesthesia monitors applied: pulse oximetry, EKG, BP cuff and oxygen Nerve block position: supine Anesthetic Used: ropivicaine 0.5% Amount of anesthesia used (mL): 15 Ultrasound used to: recognize landmarks Nerve Stimulator Used?: No Interscalene/Femoral BLK: other needle (pjunk 4inch) Injection: neg aspiration of heme Patient Tolerated Procedure: well Complications: none
[2025-03-23] MEDS: tranexamic acid 1,000 mg/10mL SDV 1000 MG IV (14:19)
[2025-03-23] MEDS: ROPivacaine 0.2% Premix 100 mL 200 MG XX (14:40)
[2025-03-23] MEDS: tranexamic acid 1,000 mg/10mL SDV 1000 MG XX (14:40)
--- NOTE | 2025-03-23 16:00 | P.BOP_ITS ---
Date of Procedure: [March 23, 2025] Surgeon: [Dr. Mattson DO] Supervisor [employer](s): [Jonnathan Mattson PA-C] Procedure(s) performed: [Right total knee arthroplasty with Francisco robotic assist] Findings of the procedure(s): [Right knee degenerative joint disease. Procedure went well and as plan] Estimated blood loss: [25 mL] Specimen(s) removed: [Tibial and femoral shavings] Post-operative diagnosis: [Right knee degenerative joint disease]
--- NOTE | 2025-03-23 16:04 | PM.PACU ---
PACU note Narrative: Patient is a 65-year-old female that just underwent a right knee total arthroplasty. Pt transferred to PACU in stable condition. Dressing is dry. pt is awake and alert. pt can wiggle toes and plantarflex and dorsiflex foot. pt able to perform straight leg raise, Femoral nerve intact. Distal pulses are palpable toes are warm and well-perfused. Cap refill is normal and under 2 seconds. Sensation to foot is intact. Pain is controlled. Exam: awake Disposition: admitted
--- NOTE | 2025-03-23 17:44 | P.CONIM_ITS ---
Providers/Reason For Consult 2 Consulting Physician/Specialty*: Orthopedic Reason for Consult*: Medical management Attending Physician: Yang Mattson DO Primary Care Provider: Ro Finney DO History of Present Illness History of Present Illness Bobbi Fritz is a 65 year old female with a past medical history of migraines, history of bipolar disorder, who presents to [facility] for right knee total arthroplasty, she is seen in postop recovery she is alert oriented x 3, follow commands, no chest pain, no palpitations, no lightheadedness, dizziness, no cardiovascular history, no history of strokes, no history of diabetes Review of Systems 2 Card: Reports: lightheadedness; Denies: chest pain Medications/Allergies Home Medications ?Medication ?Instructions ?Recorded ?Confirmed ?Last Taken ?Type diclofenac sodium 1 % topical gel 4 g topical QID righ t knee pain 05/29/23 03/23/25 06/12/23 Rx (Voltaren Arthritis Pain) #100 grams meloxicam 15 mg tablet 15 mg PO DAILY 01/03/2408/1203/22/25 History pantoprazole 40 mg tablet,delayed 40 mg PO BID #60 tab s 01/08/24 03/23/25 03/22/25 Rx release sumatriptan succinate 25 mg tablet See Rx Instructions PO .COMPLEX #9 05/12/24 03/23/25 03/16/25 Rx tabs hydroxyzine pamoate 25 mg capsule 25 mg PO BID PRN anx iety #60 caps 11/11/24 03/23/25 03/22/25 Rx (Vistaril) lamotrigine 200 mg tablet 200 mg PO .evening #90 tabs 11/11/24 03/23/25 03/22/25 Rx (Lamictal) lithium carbonate 300 mg capsule 300 mg PO BEDTIME #90 caps 11/11/24 03/23/25 03/22/25 Rx trazodone 100 mg tablet 200 mg (2 x 100 mg) PO .QHS PRN 11/11/24 03/23/25 03/22/25 Rx sleep #180 tabs ziprasidone HCl 40 mg capsule 40 mg PO .evening #90 ca ps 02/12/25 03/23/25 03/22/25 Rx (Geodon) sertraline 25 mg tablet 25 mg PO .morning #90 tabs 1 03/23/25 03/22/25 Rx hydrocodone 7.5 mg-acetaminophen 1 tab PO TID 03/23/25 03/23/25 03/23/25 History 325 mg tablet Allergies Allergy/AdvReac Type Severity Reaction Status Date / Time propoxyphene (From Allergy Severe hives, Verified 03/16/25 14:22 Darvocet-N) tongue swelling Sulfa (Sulfonamide Allergy Severe ALGY-Swell Verified 03/16/25 14:22 Antibiotics) Lip/Tongue/Throat cefuroxime (From Ceftin) Allergy unknown Verified 03/16/25 14:22 divalproex sodium (From Allergy ALGY-Swell Verified 03/23/25 09:00 Depakote) Lip/Tongue/Throat Current Medications Generic Name Dose Route Start Last Admin Trade Name Freq PRN Reason Stop Dose Admin Sodium Chloride 1,000 mls @ 30 mls/hr 03/23/25 13:45 03/23/25 15:41 Sodium Chloride 0.9% IV 03/24/25 13:44 Infused .Q24H MIGUEL ANGEL Infusion PFSH Acute 2 PFSH: Medical History Vaping nicotine dependence, tobacco product Post-traumatic stress disorder, chronic Bipolar I disorder, most recent episode mixed, severe without psychotic features with anxious distress Psychiatric care Bereavement Loss of parents Loss of Aunt on 11/11/22 Encounter for long-term use of 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 Chronic back pain Chronic sacroiliac pain Genital herpes in women GERD (gastroesophageal reflux disease) Carpal tunnel syndrome, bilateral Atrophic vaginitis Recurrent UTI Mixed incontinence Bilateral low back pain with right-sided sciatica Hypothyroidism Surgical History Bariatric surgery status S/P hysterectomy Dr. Underwood-1997 ovaries remain S/P dilatation and curettage age of 19 in [place], [place] S/P gastric bypass [facility]. [id number] H/O LEEP Family History Father Diabetes Stroke Grandmother Cancer breast-ovarian Brother Diabetes Hypertension Mother Thyroid disease Social History Smoking and tobacco/nicotine status: current every day tobacco/nicotine user (vapes) cigarettes Packs smoked per day: 0.5 Years cigarettes smoked: 0.5 Quit status (tobacco/nicotine): has tried quititng Number of times tried to quit tobacco: 2 Second hand smoke exposure: No Alcohol intake: former Substance/Drug Use: never Marital status: Vitals/I&O/Wt Last Vital Signs Temp 97.9 F 03/23/25 16:13 Pulse 99 03/23/25 16:37 Resp 17 03/23/25 16:37 BP 108/73 03/23/25 16:37 Pulse Ox 94 03/23/25 16:37 O2 Del Method Room Air 03/23/25 16:37 03/23/25 03/23/25 03/23/25 06:59 14:59 22:59 Intake Total 50 / 50 1850 / 1900 Output Total 525 / 525 Balance 50 / 50 1325 / 1375 Weight last 48 hrs Weight 80.739 kg Physical Exam 2 Const: COMMON NORMALS: no acute distress and patient oriented x3 O RIENTATION/CONSCIOUSNESS: Yes awake, Yes oriented to person, Yes oriented to place and Yes oriented to time HENMT: COMMON NORMALS: normocephalic HEAD & SCALP: normocephalic Resp: COMMON NORMALS: normal respiratory effort, No retractions, No use of accessory muscles and clear to auscultation bilaterally AUSCULTATION: clear to auscultation bilaterally Cardio: COMMON NORMALS: regular rate, regular rhythm, S1 normal heart sound present and S2 normal heart sound present RATE: regular rate RHYTHM: r egular rhythm HEART SOUNDS: S1 normal heart sound present and S2 normal heart sound present GI: COMMON NORMALS: Normal to inspection, nondistended, normoactive bowel sounds present and non-tender Extremity: COMMON NORMALS: no pedal edema Neuro: COMMON NORMALS: patient oriented x3 and moves all extremities S ENSORIUM/ORIENTATION: Yes oriented to person, Yes oriented to place and Yes oriented to time Psych: COMMON NORMALS: mental status grossly normal Urinary Catheter Management: [employer] Latex: Cath Placed During This Visit: yes Urinary Catheter Date of Insertion: 03/23/25 Urinary Catheter Time of Insertion: 14:15 Data 03/23/25 09:50 03/23/25 09:50 A&P Assessment and plan 1. Bipolar I disorder, most recent episode mixed, severe without psychotic features: Plan: - Resume home lamotrigine, lithium, Geodon, trazodone, sertraline - Pain control and anticoagulation as per orthopedic team PDMP PDMP Reviewed: Not Reviewed Consult Attestations 2 Medical Necessity Statement: Requires hospitalization, postop care Diagnoses Bipolar I disorder, most recent episode mixed, severe without psychotic features F31.63
--- NOTE | 2025-03-23 18:00 | PM.OP ---
Operative Report Date of procedure: March 23, 2025 Surgeon: Yang Mattson DO Electrode Cleaner: Jonnathan Mattson PA-C: PA was necessary for assistance in this case with leg positioning retraction and protection of neurovascular structures as well as assistance in implantation wound closure and dressing application. Procedure: March 23, 2025 Surgeon: Yang Mattson DO Electrode Cleaner: Jonnathan Mattson PA-C: PA was necessary for assistance in this case with leg positioning retraction and protection of neurovascular structures as well as assistance in implantation wound closure and dressing application. Procedure: Preoperative diagnosis: Right knee degenerative joint disease Post-op diagnosis: Same Procedure done: Right total knee arthroplasty, cemented?robotic assisted Francisco Implants: [place] triathlon size 3 femur CR cemented?Right [place] triathlon size? 3 tibia universal baseplate cemented Coleman triathlon symmetric patella size 29 mm [place] triathlon polyethylene 10mm Surgeon: Yang Mattson DO Estimated blood?loss: 25 mL Tourniquet 55min IV fluids: 1500 mL Urine output: 200 mL Complications: None Condition: stable Disposition: floor Brief History: Patient is a 65-year-old female with with chronic?Right knee degenerative joint disease.? Patient has been worked up in the outpatient setting in the orthopedic office at this point time through shared decision making given? [id number] arthritis as well as failed conservative treatment, and pt would?like to proceed with a?Right total knee arthroplasty.? Through shared decision making elected to proceed with surgical intervention for?Right total knee arthroplasty with Francisco robotic assisted.? We talked about continued conservative treatment and surgical intervention as far as the risk benefits complications alternatives surgical and nonsurgical treatment options.? At this point time understanding patient risks with surgery pt agrees to proceed with surgical intervention.? Once again? risk with surgery include but are not?limited to make it better make it worse blood clot, heart attack, stroke, on the table, infection, injury to nerves or vessels, persistent pain, arthrofibrosis, implant failure.? Understanding these risks patient agrees to proceed with surgical intervention consent was obtained in the preoperative holding area.? All questions answered. Procedure: Patient was seen and evaluated in the preoperative holding area.? Consent was reviewed and signed with patient with plan for?Right total knee arthroplasty.? All questions answered.? Correct extremity marked.? Patient seen and evaluated by the anesthesia department and once cleared for surgery was taken back to the operative suite.? Patient was placed into a supine position on the OR table.? All bony prominences were well-padded.? Patient was appropriately secured to the bed.? Patient underwent anesthesia per the anesthesia department.? Patient received anesthesia and? Mensah catheter was placed.? A nonsterile tourniquet was applied to the?Right thigh.? At this point in time a final timeout performed.? Patient received appropriate preoperative antibiotics and TXA. Next the?Right?lower extremity was then prepped and draped in standard orthopedic fashion. Esmarch tourniquet was used exsanguinate the?Right?lower extremity.? Tourniquet was insufflated to 250 mmHg. A standard anterior incision was made over midline of the knee.? Sharp scalpel excision through skin and subcutaneous tissue full-thickness skin flaps were made.? Fascia was elevated off of the extensor retinaculum was stable with medial parapatellar arthrotomy was then made.? The performed standard sequential releases..? Immediately on entry into the joint patient was found to have severe eburnated bone and tricompartmental arthritic changes noted.? With significant osteophyte formation.? Next the the patella was then stuffed and the knee was then flexed.?? King was placed superiorly around the anterior aspect of the femur this was freed of synovium and I subsequently then placed by 2 femur pins to establish my femur arrays for the Francisco robot.? These were then placed bicortically and? femur array was then appropriately secured with appropriate visualization.? Next attention was turned towards the tibial rays.? These were then drilled sequentially bicortically in parallel fashion and intraincisional.? I then placed my guide as well as my tibial array on in place.? This was appropriately secured and had excellent visualization with the Francisco robot.? Next the tibial checkpoint as well as femur checkpoint were then placed.? At this point time I then subsequently established my head center as well as my medial?lateral malleoli as well as my checkpoints.? Next utilizing standard Francisco technology I then mapped out the appropriate points and confirmation points around the femur as well as the tibia in standard fashion.? Once this was then done I then removed all osteophytes in preparation for dynamic testing.? All osteophytes were removed as well as I removed the ACL and the PCL was excised due to its significant tearing and degeneration noted.? At this point time the knee was brought into full extension and we performed our standard evaluation of our gap balancing stressing his?ligaments and extension as well as flexion appropriate adjustments were made to have appropriate gap balancing in both flexion and extension.? This plan for final cuts to correct patient's deformity within ligamentous tolerances.? We get a preoperative plan evaluating our implants which was a size 3 femur and a size 3 tibia.? Next we brought in the Francisco robot and sequentially made our femur cuts.? All excess bony cuts were then removed.? Finally we made our tibial cut.? Once this was done a standard PCL retractor was then placed into this position I excised the medial and?lateral meniscus.? The tibial cut was then subsequently removed all excess bony debris was removed.? I then utilized a?lamina gas appliance adjuster and remove the posterior osteophytes.? At this point time sized the tibia and confirmed this was a size 3.? I utilized our blunt probe to establish rotation of tibial implant.? Once this was done I then placed my tibia size 3 trial in appropriate position and then subsequently placed tibial pins to hold this into place and trialed up to a size 10mm poly as well as a size 3 femur which was appropriately impacted in place knee was then subsequently brought into extension. Trials were then assessed,? this was stable with varus valgus stress in extension as well as had symmetrical translation when brought into flexion demonstrating symmetrical gaps. I had excellent balance gaps in flexion and extension with varus and valgus stresses.? At this point I was satisfied with these implants these were then verified and opened on the back table size 3 tibia, size 3 femur,? size 10 mm polythickness.? We did confirm appropriate gap balancing and stresses as well as alignment utilizing? Francisco and were satisfied with this plan.? ?At this point time with my trials in place I then towel clip the patella everted this made appropriate measurements subsequently utilizing freehand technique performed by patellar resurfacing this was confirmed to be appropriate resection and subsequently sized to be a 29 mm symmetric.? My drill peg guides were then clamped and appropriate position and appropriate position in the patella for appropriate tracking and parallel with the joint.? Pegs were drilled trial implant was placed and the knee was then subsequently ranged and found to have excellent patellar tracking.? Femur pegs were then drilled.? All checkpoints as well as guidepins and arrays were removed and appropriate counts made. Satisfied with our tibial placement rotation I then utilized the keel punch and prepped the tibia.? At this point time all of our trial implants were removed.? ? The wound bed? was thoroughly irrigated and dried and prepped for cementation.? Cement was mixed on the back table.? Once cement was ready this was then covered onto the tibia and the tibial baseplate was then impacted and all excess cement was removed.? Next the polyethylene was then impacted into place on the tibial baseplate.? Next cement was placed onto the femur as well as under the femur implants and impacted in to place and all excess cement was extruded and removed.? Knee was taken into full extension? to clear all excess cement was removed.? Warm saline was placed over the joint.? I then towel clip patella and dried for cementation. cemented the patella into place.? This was all clamped and the cement was allowed to cure.? Thorough irrigation performed with pulse?lavage.? I then placed my periarticular injection while the cement was curing.? Once cured the knee was taken through range of motion and had excellent stability and gaps were balanced in flexion and extension.? Tourniquet was then deflated. hemostasis satisfactory with electrocautery.? Vancomycin powder placed in wound bed for antibiotic infection prophylaxis. Next I then subsequently closed the capsule with Ethibond suture as well as a running strata fix suture.? Knee was then taken through range of motion 30 times.? Next the skin was then closed in?layered fashion of running stratifix sutures of deep and subcutenous tissue and skin.? ?closed in flexion and Prineo glue was then placed over the incision this allowed to cure.? Sandra for skin, incision was covered with Silverlon, with ABDs soft roll and Krishna wrap.? Patient was then awakened from anesthesia and taken to PACU in stable condition. Disposition: Patient taken to PACU in stable condition will be admitted to the floor for pain control PT/OT weight-bear as tolerated?Right?lower extremity dressing changes as needed, DVT prophylaxis. Pain control. Patient will receive appropriate postoperative antibiotics. patient will be seen today by the internal medicine team for medical management.? Patient will follow up with the office in 2 weeks.? Patient understands agrees with current plan.? All questions answered
--- NOTE | 2025-03-23 18:00 | ANE.PACU2 ---
Inpatient post-anesthesia follow up: Airway intact: Yes Vital signs: Temperature 98.3 F Pulse Rate 75 Respiratory Rate 16 Blood Pressure 142/75 Pulse Oximetry 95 Oxygen Delivery Me thod Room Air Oxygen Flow Rate Fraction of Inspir ed Oxygen Hydration adequate: Yes Nausea and vomiting: No Pain level: 2 Mental status: Baseline
[2025-03-23] MEDS: mupirocin oint 22 gm 1 APPLIC NASAL (18:18)
[2025-03-23] MEDS: chlorhexidine gluconate 0.12% Btl 473 mL 30 ML MUCOUS MEM ×2 (18:18→21:23)
[2025-03-23] MEDS: sennosides-docusate Tablet 2 TAB PO (18:18)
[2025-03-23] MEDS: calcium carb-vit d 600mg/400unit 1 Tablet 1 EACH PO (18:19)
[2025-03-23] MEDS: tranexamic acid 1,000 MG/100 ML PREMIX 600 MG IV (18:19)
[2025-03-24] VITALS: BP 106/48; PULSE 71; RESP 20; TEMP 36.6; O2SAT 95
[2025-03-24] MEDS: acetaminophen 1,000 MG/100 ML PIGGYBACK 400 MG IV ×2 (02:28→09:14)
[2025-03-24 04:00] VITALS: BP 106/68; PULSE 63; RESP 18; TEMP 36.7; O2SAT 95
[2025-03-24] MEDS: sennosides-docusate Tablet 2 TAB PO (04:36)
[2025-03-24] MEDS: mupirocin oint 22 gm 1 APPLIC NASAL (04:36)
[2025-03-24] MEDS: calcium carb-vit d 600mg/400unit 1 Tablet 1 EACH PO (04:36)
[2025-03-24] MEDS: multivitamin therapeutic Tablet 1 TAB PO (04:36)
[2025-03-24] MEDS: chlorhexidine gluconate 0.12% Btl 473 mL 30 ML MUCOUS MEM (04:36)
[2025-03-24 05:17] LABS: Hematocrit 32.7 % (36-47); Hemoglobin 10.30 g/dL (11.27-16.99); Mean Corpuscular HGB Conc 31.5 g/dL (30-55); Mean Corpuscular Hemoglobin 28.5 pg (27-33); Mean Corpuscular Volume 90.3 fl (85-98); Nucleated Red Blood Cells % 0 %; Platelet Count 221 10^3/cmm (157-399); Red Blood Count 3.62 10^6/uL (3.85-5.65); White Blood Count 9.64 10^3/uL (3.29-11.43)
[2025-03-24 05:36] LABS: Anion Gap 11.0 (5-19); Blood Urea Nitrogen 9 mg/dL (8-23); Calcium 8.8 mg/dL (8.5-10.5); Carbon Dioxide 22 mmol/L (22-29); Chloride 111 mmol/L (98-107); Creatinine Clr Calc Pharmacy 67.2349; Glucose 106 mg/dL (65-115); Osmolality Calculated 289 mOsm/kg (285-295); Potassium 4.0 mmol/L (3.5-5.1); Sodium 140 mmol/L (136-145)
--- OUTSIDE RECORDS SUMMARY | 2025-03-24 07:16 | XMS_ITS | Patient Health Record ---
Author Organization [facility] Address [address] [place] [address] Care Team Providers Care Talent Acquisition Coordinator Name Role Phone Ro Finney DO Primary Care Provider Unavailab Ad Navarro Unavailable [phone] Ana Owens Unavailable [phone] Anu Eduardo Unavailable [phone] Allergies No Known Allergies Results Component Value Reference Range Flag Notes Urine Confirmation Panel (in strument) - [id number] Reviewed date:01/06/2025 01:27:52 PM Interpretation: Performing Lab: Notes/Report: 6-Acetylmorphine 0 <6 ng/mL N This kassy t was developed and its performance characteristics determined by [facility]. It has not been cleared or approved by the U.S. Food and Drug Administration. 7-Aminoclonazepam 0 <60 ng/mL N This te st was developed and its performance characteristics determined by [facility]. It has not been cleared or approved by the U.S. Food and Drug Administration. Alprazolam 0 <60 ng/mL N This test was developed and its performance characteristics determined by [facility]. It has not been cleared or approved by the U.S. Food and Drug Administration. Amphetamine 0 <75 ng/mL N This test was developed and its performance characteristics determined by [facility]. It has not been cleared or approved by the U.S. Food and Drug Administration. aOH-Alprazolam 0 <60 ng/mL N This test was developed and its performance characteristics determined by [facility]. It has not been cleared or approved by the U.S. Food and Drug Administration. Buprenorphine 0.0 <7.5 ng/mL N This test w as developed and its performance characteristics determined by [facility]. It has not been cleared or approved by the U.S. Food and Drug Administration. Norbuprenorphine 0.0 <37.5 ng/mL N This te st was developed and its performance characteristics determined by [facility]. It has not been cleared or approved by the U.S. Food and Drug Administration. Carisoprodol 0 <75 ng/mL N This test wa s developed and its performance characteristics determined by [facility]. It has not been cleared or approved by the U.S. Food and Drug Administration. Codeine 0 <75 ng/mL N This test was developed and its performance characteristics determined by [facility]. It has not been cleared or approved by the U.S. Food and Drug Administration. EDDP 0 <75 ng/mL N This test was developed and its performance characteristics determined by [facility]. It has not been cleared or approved by the U.S. Food and Drug Administration. Fentanyl 0 <6 ng/mL N This test was developed and its performance characteristics determined by [facility]. It has not been cleared or approved by the U.S. Food and Drug Administration. Hydrocodone 1560 <75 ng/mL H This test was developed and its performance characteristics determined by [facility]. It has not been cleared or approved by the U.S. Food and Drug Administration. Hydromorphone 355 <75 ng/mL H This test w as developed and its performance characteristics determined by [facility]. It has not been cleared or approved by the U.S. Food and Drug Administration. Lorazepam 0 <60 ng/mL N This test was developed and its performance characteristics determined by [facility]. It has not been cleared or approved by the U.S. Food and Drug Administration. MDMA 0 <75 ng/mL N This test was developed and its performance characteristics determined by [facility]. It has not been cleared or approved by the U.S. Food and Drug Administration. Meperidine 0.0 <37.5 ng/mL N This test was developed and its performance characteristics determined by [facility]. It has not been cleared or approved by the U.S. Food and Drug Administration. Meprobamate 0 <75 ng/mL N This test was developed and its performance characteristics determined by [facility]. It has not been cleared or approved by the U.S. Food and Drug Administration. Methamphetamine 0 <75 ng/mL N This test was developed and its performance characteristics determined by [facility]. It has not been cleared or approved by the U.S. Food and Drug Administration. Methadone 0 <75 ng/mL N This test was developed and its performance characteristics determined by [facility]. It has not been cleared or approved by the U.S. Food and Drug Administration. Morphine 0 <75 ng/mL N This test was developed and its performance characteristics determined by [facility]. It has not been cleared or approved by the U.S. Food and Drug Administration. Nordiazepam 0 <60 ng/mL N This test was developed and its performance characteristics determined by [facility]. It has not been cleared or approved by the U.S. Food and Drug Administration. Norfentanyl 0 <6 ng/mL N This test was developed and its performance characteristics determined by [facility]. It has not been cleared or approved by the U.S. Food and Drug Administration. Normeperidine 0.0 <37.5 ng/mL N This test was developed and its performance characteristics determined by [facility]. It has not been cleared or approved by the U.S. Food and Drug Administration. O-desmethyltramadol 0 <75 ng/mL N This test was developed and its performance characteristics determined by [facility]. It has not been cleared or approved by the U.S. Food and Drug Administration. Oxazepam 0 <60 ng/mL N This test was developed and its performance characteristics determined by [facility]. It has not been cleared or approved by the U.S. Food and Drug Administration. Oxycodone 0.0 <37.5 ng/mL N This test was developed and its performance characteristics determined by [facility]. It has not been cleared or approved by the U.S. Food and Drug Administration. Oxymorphone 0 <75 ng/mL N This test was developed and its performance characteristics determined by [facility]. It has not been cleared or approved by the U.S. Food and Drug Administration. Phencyclidine 0.0 <7.5 ng/mL N This test w as developed and its performance characteristics determined by [facility]. It has not been cleared or approved by the U.S. Food and Drug Administration. Tapentadol 0.0 <37.5 ng/mL N This test was developed and its performance characteristics determined by [facility]. It has not been cleared or approved by the U.S. Food and Drug Administration. Temazepam 0 <60 ng/mL N This test was developed and its performance characteristics determined by [facility]. It has not been cleared or approved by the U.S. Food and Drug Administration. Tramadol 0 <75 ng/mL N This test was developed and its performance characteristics determined by [facility]. It has not been cleared or approved by the U.S. Food and Drug Administration. Norhydrocodone 1687 <75 ng/mL H This test was developed and its performance characteristics determined by [facility]. It has not been cleared or approved by the U.S. Food and Drug Administration. Noroxycodone 0 <38 ng/mL N This test wa s developed and its performance characteristics determined by [facility]. It has not been cleared or approved by the U.S. Food and Drug Administration. Pregabalin 0 <225 ng/mL N This test was developed and its performance characteristics determined by [facility]. It has not been cleared or approved by the U.S. Food and Drug Administration. Gabapentin 0 <225 ng/mL N This test was developed and its performance characteristics determined by [facility]. It has not been cleared or approved by the U.S. Food and Drug Administration. Benzoylecgonine 0.0 <37.5 ng/mL N This kassy t was developed and its performance characteristics determined by [facility]. It has not been cleared or approved by the U.S. Food and Drug Administration. 4-Hydroxy Xylazine 0 <25 ng/mL N This t est was developed and its performance characteristics determined by [facility]. It has not been cleared or approved by the U.S. Food and Drug Administration. Urine Drug Screen (cup read) - [id number] Reviewed date:01/01/2025 11:41:51 AM Interpretation: Performing Lab: Notes/Report: OPI + Urine Drug Screen (cup read) - [id number] Reviewed date:08/07/2024 09:58:48 AM Interpretation: Performing Lab: Notes/Report: OPI + zzzUrine Drug Screen (confir mation by instrument) - [id number] Reviewed date:06/19/2024 08:47:54 AM Interpretation: Performing Lab: Notes/Report: zzzUrine Drug Screen (confir mation by instrument) - [id number] Reviewed date:04/22/2024 03:35:16 PM Interpretation: Performing Lab: Notes/Report: Urine Drug Screen (cup read) - [id number] Reviewed date:10/08/2024 10:20:46 AM Interpretation: Performing Lab: Notes/Report: OPI Pos Urine Confirmation Panel (in strument) - [id number] Reviewed date:10/16/2024 03:41:22 PM Interpretation: Performing Lab: Notes/Report: 6-Acetylmorphine 0 <6 ng/mL N This kassy t was developed and its performance characteristics determined by [facility]. It has not been cleared or approved by the U.S. Food and Drug Administration. 7-Aminoclonazepam 0 <60 ng/mL N This te st was developed and its performance characteristics determined by [facility]. It has not been cleared or approved by the U.S. Food and Drug Administration. Alprazolam 0 <60 ng/mL N This test was developed and its performance characteristics determined by [facility]. It has not been cleared or approved by the U.S. Food and Drug Administration. Amphetamine 0 <75 ng/mL N This test was developed and its performance characteristics determined by [facility]. It has not been cleared or approved by the U.S. Food and Drug Administration. aOH-Alprazolam 0 <60 ng/mL N This test was developed and its performance characteristics determined by [facility]. It has not been cleared or approved by the U.S. Food and Drug Administration. Buprenorphine 0.0 <7.5 ng/mL N This test w as developed and its performance characteristics determined by [facility]. It has not been cleared or approved by the U.S. Food and Drug Administration. Norbuprenorphine 0.0 <37.5 ng/mL N This te st was developed and its performance characteristics determined by [facility]. It has not been cleared or approved by the U.S. Food and Drug Administration. Carisoprodol 0 <75 ng/mL N This test wa s developed and its performance characteristics determined by [facility]. It has not been cleared or approved by the U.S. Food and Drug Administration. Codeine 0 <75 ng/mL N This test was developed and its performance characteristics determined by [facility]. It has not been cleared or approved by the U.S. Food and Drug Administration. EDDP 0 <75 ng/mL N This test was developed and its performance characteristics determined by [facility]. It has not been cleared or approved by the U.S. Food and Drug Administration. Fentanyl 0 <6 ng/mL N This test was developed and its performance characteristics determined by [facility]. It has not been cleared or approved by the U.S. Food and Drug Administration. Hydrocodone 2572 <75 ng/mL H This test was developed and its performance characteristics determined by [facility]. It has not been cleared or approved by the U.S. Food and Drug Administration. Hydromorphone 138 <75 ng/mL H This test w as developed and its performance characteristics determined by [facility]. It has not been cleared or approved by the U.S. Food and Drug Administration. Lorazepam 0 <60 ng/mL N This test was developed and its performance characteristics determined by [facility]. It has not been cleared or approved by the U.S. Food and Drug Administration. MDMA 0 <75 ng/mL N This test was developed and its performance characteristics determined by [facility]. It has not been cleared or approved by the U.S. Food and Drug Administration. Meperidine 0.0 <37.5 ng/mL N This test was developed and its performance characteristics determined by [facility]. It has not been cleared or approved by the U.S. Food and Drug Administration. Meprobamate 0 <75 ng/mL N This test was developed and its performance characteristics determined by [facility]. It has not been cleared or approved by the U.S. Food and Drug Administration. Methamphetamine 0 <75 ng/mL N This test was developed and its performance characteristics determined by [facility]. It has not been cleared or approved by the U.S. Food and Drug Administration. Methadone 0 <75 ng/mL N This test was developed and its performance characteristics determined by [facility]. It has not been cleared or approved by the U.S. Food and Drug Administration. Morphine 0 <75 ng/mL N This test was developed and its performance characteristics determined by [facility]. It has not been cleared or approved by the U.S. Food and Drug Administration. Nordiazepam 0 <60 ng/mL N This test was developed and its performance characteristics determined by [facility]. It has not been cleared or approved by the U.S. Food and Drug Administration. Norfentanyl 0 <6 ng/mL N This test was developed and its performance characteristics determined by [facility]. It has not been cleared or approved by the U.S. Food and Drug Administration. Normeperidine 0.0 <37.5 ng/mL N This test was developed and its performance characteristics determined by [facility]. It has not been cleared or approved by the U.S. Food and Drug Administration. O-desmethyltramadol 0 <75 ng/mL N This test was developed and its performance characteristics determined by [facility]. It has not been cleared or approved by the U.S. Food and Drug Administration. Oxazepam 0 <60 ng/mL N This test was developed and its performance characteristics determined by [facility]. It has not been cleared or approved by the U.S. Food and Drug Administration. Oxycodone 0.0 <37.5 ng/mL N This test was developed and its performance characteristics determined by [facility]. It has not been cleared or approved by the U.S. Food and Drug Administration. Oxymorphone 0 <75 ng/mL N This test was developed and its performance characteristics determined by [facility]. It has not been cleared or approved by the U.S. Food and Drug Administration. Phencyclidine 0.0 <7.5 ng/mL N This test w as developed and its performance characteristics determined by [facility]. It has not been cleared or approved by the U.S. Food and Drug Administration. Tapentadol 0.0 <37.5 ng/mL N This test was developed and its performance characteristics determined by [facility]. It has not been cleared or approved by the U.S. Food and Drug Administration. Temazepam 0 <60 ng/mL N This test was developed and its performance characteristics determined by [facility]. It has not been cleared or approved by the U.S. Food and Drug Administration. Tramadol 0 <75 ng/mL N This test was developed and its performance characteristics determined by [facility]. It has not been cleared or approved by the U.S. Food and Drug Administration. Norhydrocodone 3359 <75 ng/mL H This test was developed and its performance characteristics determined by [facility]. It has not been cleared or approved by the U.S. Food and Drug Administration. Noroxycodone 0 <38 ng/mL N This test wa s developed and its performance characteristics determined by [facility]. It has not been cleared or approved by the U.S. Food and Drug Administration. Pregabalin 0 <225 ng/mL N This test was developed and its performance characteristics determined by [facility]. It has not been cleared or approved by the U.S. Food and Drug Administration. Gabapentin 0 <225 ng/mL N This test was developed and its performance characteristics determined by [facility]. It has not been cleared or approved by the U.S. Food and Drug Administration. Benzoylecgonine 0.0 <37.5 ng/mL N This kassy t was developed and its performance characteristics determined by [facility]. It has not been cleared or approved by the U.S. Food and Drug Administration. 4-Hydroxy Xylazine 0 <25 ng/mL N This t est was developed and its performance characteristics determined by [facility]. It has not been cleared or approved by the U.S. Food and Drug Administration. Tox Results Reviewed date:10/16/2024 03:47:40 PM Interpretation: Performing Lab: Notes/Report: Tox Results Reviewed date:01/06/2025 02:54:47 PM Interpretation: Performing Lab: Notes/Report: Reason For Referral No Information Medications Medication SIG (Take, Route, Frequency, Duration) Notes Start Date End Date Status Geodon *Pick strength-form from [employer] for eRX* Active LaMICtal *Pick strength-form from [employer] for eRX* Active HYDROcodone-Acetaminop hen 7.5-325 MG Tablet 1 tablet as needed Orally every 8 hours; Duration: 30 days As needed Do not exceed 3 per day Fill on 03-13-25 03/04/2025 04/12/2025 Active trazodone *Reorder from [employer] for eRx and Interaction Alerts* Active cyclobenzaprine *Reorder from [employer] for eRx and Interaction Alerts* Active Zoloft *Pick strength-form from [employer] for eRX* Active Social History Social History Additional Details [...] <BLANK>, Working currently? - Yes : 6hrs\day Problems Problem Type SNOMED Code ICD Code Onset Dates Problem Status W/U Status Risk Notes Problem Chronic pain syndrome (387712351) Chronic pain syndrome (G89.4) 10/18/19 Active confirmed Problem Osteoarthritis of right knee joint (156892936204323) Osteoarthritis of right knee, unspecified osteoarthritis type (M17.11) Active confirmed Problem Lumbosacral spondylosis without myelopathy (09717123) Spondylosis of lumbar region without myelopathy or radiculopathy (M47.816) Active confirmed Problem Primary osteoarthritis (681116877) Primary osteoarthritis involving multiple joints (M15.0) Active confirmed Problem Osteoarthritis of left knee joint (741813217389925) Osteoarthritis of left knee, unspecified osteoarthritis type (M17.12) Active confirmed Problem Abnormal gait (43571017) Abnormality of gait and mobility (R26.9) Active confirmed Problem Degeneration of intervertebral disc of lumbar region with discogenic back pain (M51.360) Active confirmed Problem Abnormal gait (66822148) Unspecified abnormalities of gait and mobility (R26.9) 10/18/19 Active confirmed Problem Degeneration of lumbar intervertebral disc (67812267) Other intervertebral disc degeneration, lumbar region (M51.36) 10/18/19 Active confirmed Problem Lumbosacral spondylosis without myelopathy (59651987) Spondylosis without myelopathy or radiculopathy, lumbar region (M47.816) 10/18/19 Active confirmed Problem Osteoarthritis of knee (639610050) Unilateral primary osteoarthritis, left knee (M17.12) 10/18/19 Active confirmed Problem Primary osteoarthritis (163081857) Unilateral primary osteoarthritis, right knee (M17.11) 10/18/19 Active confirmed Problem Obesity (623865662) Obesity, unspecified (E66.9) 10/18/19 Active confirmed Problem Radiculopathy due to lumbar intervertebral disc disorder (221506258873648) Intervertebral disc disorders with radiculopathy, lumbar region (M51.16) Active confirmed Vital Signs Height-cm 162.56 cm 03/04/2025 Weight-kg 78.93 kg 03/04/2025 Height 64.00 in 03/04/2025 Weight 174 lbs 03/04/2025 BMI 29.86 kg/m2 03/04/2025 Procedures Procedure Date Ordered Date Performed Result Body Sit e Epidural, Lumbar/Sacral (Cau lindsay), w/ imaging guidance - [id number] 11/04/2024 11/04/2024 07-15 Encounters Encounter Location Date Provider Diagnosis [facility]ly [facility] [address] [place] [address] 12/02/2024 Ad Cui Intervertebral disc disorders with radiculopathy, lumbar region M51.16 [facility] [address] [address] 04/16/2024 Ad Cui Chronic pain syndrom e G89.4 ; Degeneration of intervertebral disc of lumbar region with discogenic back pain M51.360 ; Spondylosis of lumbar region without myelopathy or radiculopathy M47.816 ; Primary osteoarthritis involving multiple joints M15.0 ; Pain in right shoulder M25.511 ; Osteoarthritis of right knee, unspecified osteoarthritis type M17.11 ; Osteoarthritis of left knee, unspecified osteoarthritis type M17.12 ; Abnormality of gait and mobility R26.9 and snf (current) use of 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 Z79.891 [facility]ly [facility] [address] [address] 03/04/2025 Ad Cui Chronic pain syndrom e G89.4 ; Spondylosis without myelopathy or radiculopathy, lumbar region M47.816 ; Degeneration of intervertebral disc of lumbar region with discogenic back pain M51.360 ; snf (current) use of 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 Z79.891 ; Intervertebral disc disorders with radiculopathy, lumbar region M51.16 ; Pain in right knee M25.561 ; Primary osteoarthritis involving multiple joints M15.0 and Bilateral primary osteoarthritis of knee M17.0 [facility] [address] [place] [phone] 01/01/2025 Anu Eduardo Chronic pain syndrom e G89.4 ; Spondylosis without myelopathy or radiculopathy, lumbar region M47.816 ; Degeneration of intervertebral disc of lumbar region with discogenic back pain M51.360 ; Pain in right knee M25.561 ; Unilateral primary osteoarthritis, left knee M17.12 ; Unilateral primary osteoarthritis, right knee M17.11 ; Primary osteoarthritis involving multiple joints M15.0 and snf (current) use of 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 Z79.891 [facility] [address] [address] 10/08/2024 Ad Cui Chronic pain syndrom e G89.4 ; Spondylosis without myelopathy or radiculopathy, lumbar region M47.816 ; Degeneration of intervertebral disc of lumbar region with discogenic back pain M51.360 ; Pain in right knee M25.561 ; Unilateral primary osteoarthritis, left knee M17.12 ; Unilateral primary osteoarthritis, right knee M17.11 ; Primary osteoarthritis involving multiple joints M15.0 ; snf (current) use of 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 Z79.891 and Intervertebral disc disorders with radiculopathy, lumbar region M51.16 [facility] [address] [address] 08/07/2024 Anu Eduardo Chronic pain syndrom e G89.4 ; Spondylosis without myelopathy or radiculopathy, lumbar region M47.816 ; Degeneration of intervertebral disc of lumbar region with discogenic back pain M51.360 ; Pain in right knee M25.561 ; Unilateral primary osteoarthritis, left knee M17.12 ; Unilateral primary osteoarthritis, right knee M17.11 ; Primary osteoarthritis involving multiple joints M15.0 and snf (current) use of 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 Z79.891 [facility] [address] [place] [address] 11/04/2024 Ad Cui Intervertebral disc disorders with radiculopathy, lumbar region M51.16 [facility] [address] [address] 06/12/2024 Anu Eduardo Chronic pain syndrom e G89.4 ; Spondylosis without myelopathy or radiculopathy, lumbar region M47.816 ; Degeneration of intervertebral disc of lumbar region with discogenic back pain M51.360 ; Pain in right knee M25.561 ; Unilateral primary osteoarthritis, left knee M17.12 ; Unilateral primary osteoarthritis, right knee M17.11 ; Primary osteoarthritis involving multiple joints M15.0 and 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 of 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 Z79.891 Formerly [facility] [address] [place] [address] 01/01/2025 Ad Cui Formerly [facility] [address] [place] [phone] 11/12/2024 Ana Owens Spondylosis without myelopathy or radiculopathy, lumbar region M47.816 Formerly [facility] [address] [place] [address] 11/10/2024 Ad Cui Spondylosis without myelopathy or radiculopathy, lumbar region M47.816 Formerly [facility] [address] [place] [phone] 08/07/2024 Ad Cui Formerly [facility] [address] [address] 06/12/2024 Ad Cui Chronic pain syndrom e G89.4 Assessments Encounter Date Diagnosis (ICD Code) Assessment Notes Treatment Notes Treatment Clinical Notes Section Notes 11/12/2024 Spondylosis without myelopathy or radiculopathy, lumbar region (ICD-10 - M47.816) 04/16/2024 Chronic pain syndrome (ICD-10 - G89.4) I had a nice visit with the patient today regarding her chronic pain issues. She says she's been having some more pain into her hands and feet consistent with arthritis. She has some bloodwork pending and she is going to have them check if she has any indications of rheumatoid arthritis. We will continue the hydrocodone and we will try switching her over to voltaren gel rather than the meloxicam her primary care is providing. We will see her back in a couple of months and proceed accordingly. 12/02/2024 Intervertebral disc disorders with radiculopathy, lumbar region (ICD-10 - M51.16) 01/01/2025 Chronic pain syndrome (ICD-10 - G89.4) I had a nice discussion with the patient today regarding her chronic pain complaints. She continues with lower back pain as well as multiple joint pain. She is status post LESI and feels this helped relieve her pain greater than 50% and states she is functioning much better overall. I did review her most recent imaging with her today she states she feels better than she has in a long time and is very happy with her results. She is doing well on her current medication regimen so she will continue that at present level. I did discuss lifestyle modifications as well as a bowel regimen. She denies any changes in her health since we last seen her any untoward side effects of the medication. She will continue her medication at present level and return to clinic in 2 months to monitor for treatment effectiveness and compliance. 03/04/2025 Chronic pain syndrome (ICD-10 - G89.4) I had a nice visit with the patient today regarding her chronic pain issues. She has an upcoming left knee arthroplasty in a month on April 03. She inquired about increased medication prior to her left knee arthroplasty. I advised her to taper down on the pain medication prior to surgery, if she is able to, as increasing it would not be in her best interest with the pending surgery. I agreed to switch her to the hydrocodone 7.5-325 mg with increased frequency, so the doses are nearly the same. We will provide one prescription for this, and we will expect orthopedics to handle her postoperative medications for the first month. She did request a repeat LESI, which we will try to get done next week. If not we will delay due to her upcoming surgery. 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 We reviewed her lumbar imaging and she does have moderate central canal stenosis bilaterally at the L3-4 level, which is above the level of her fusion. She is interested in an epidural steroid injection to see if we can get her some relief. She may have some facet mediated pain as well, but we will just see how she does with that procedure. We will continue her medications unchanged and see her soon for the epidural. 10/08/2024 Spondylosis without myelopathy or radiculopathy, lumbar region (ICD-10 - M47.816) 08/07/2024 Chronic pain syndrome (ICD-10 - G89.4) I had a nice discussion with the patient today regarding her chronic pain complaints. She states she is doing reasonably well on her current medication regimen. She did recently get a new puppy which has been keeping her busy. She states by the time she comes back for her next appointment she will likely have different insurance and may want to start looking into her back and knees a little more to see what more we can do. She feels the new insurance will likely cover things better. She denies any other changes since we last seen her any untoward side effects of the medication. She will continue her medication at present level and return to clinic in 2 months to monitor for treatment effectiveness and compliance. The patient continues with chronic pain requiring treatment to help restore function and improve quality of life. Risks of opioid therapy as well as interaction of opioids with alcohol, illicit drugs, muscle relaxers, and other sedative medications are reviewed briefly with patient again today. The patient has trialed all other reasonable treatment options and uses the medication to alleviate pain in order to remain active and rest with less pain. No clinically relevant medication side effects are noted. Last UDS and [place] FACILITIES MANAGEMENT EXECUTIVE reviewed today. Patient is advised that best long-term goals include increased activity, core strengthening, proper weight management, coping strategies, avoidance of painful triggers, and targeted interventional therapy. We will see the patient for routine follow up in accordance with all clinic policies. We did remind patient today of current guidelines to decrease opioid when possible. We will continue to stress nonopioid treatment. URINE TESTING TODAY; POINT OF SERVICE Urine drug screening will be performed today to monitor compliance with opioid therapy or to serve as a baseline screen for a patient who may be a candidate for opioid therapy in the future, pending UDS results. We will monitor with in-office testing (rapid testing) today and review the results prior to dispensing prescription, as well. Patient has been made aware of this policy. 06/12/2024 Chronic pain syndrome (ICD-10 - G89.4) I had a nice discussion with the patient today regarding her chronic pain complaints. She states she is still awaiting her blood work to check for rheumatoid arthritis. She states she has an appointment on June 23. She will keep us updated on this. She does feel that the diclofenac/lidoca ine gel at her last visit did help her some. She continues to do well on her current medication regimen and feels it does allow her to function better overall. She denies any other changes since we last seen her any untoward side effects of the medication. She will continue her medication at present level and return to clinic in 2 months to monitor for treatment effectiveness and compliance. 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) 04/16/2024 Spondylosis of lumbar region without myelopathy or radiculopathy (ICD-10 - M47.816) 01/01/2025 Spondylosis without myelopathy or radiculopathy, lumbar region (ICD-10 - M47.816) 01/01/2025 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) 04/16/2024 Primary osteoarthritis involving multiple 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) 03/04/2025 snf (current) use of 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 (ICD-10 - Z79.891) 10/08/2024 Pain in right knee (ICD-10 - M25.561) 08/07/2024 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 The patient also reports improvement in tolerance to activities which generally cause pain. Based on the results of previous diagnostic MIRIAM, a therapeutic MIRIAM is recommended. Expectation from a successful therapeutic epidural steroid injection is at least 50-70% relief of pain from baseline and evidence of improved function for at least six to eight weeks after delivery. The goal of epidural steroid injections is to reduce pain and inflammation, restoring range of motion and, thereby, facilitating progress in more active treatment programs, and avoiding surgery. The procedure and risks were discussed with the patient including but not limited to infection, bleeding, neurological complications, side effects from medications, no change in pain, worsening of pain, or even . We also discussed conservative options, surgical options, and medical management with patient as well. The patient indicates understanding and wishes to proceed with the recommended treatment approach. The patient was given written information about the procedure and all questions were answered. 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0) 10/08/2024 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 of 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 (ICD-10 - Z79.891) 06/12/2024 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 of 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 (ICD-10 - Z79.891) 08/07/2024 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 We will monitor with in-office testing (rapid testing) today and review the results prior to dispensing prescription. All positive results will be sent for quantitative analysis to ensure accuracy and quantify amounts. Any expected positive results that return negative will also be sent for quantitative analysis. Any questionable read or any medication we cannot test for in the office confidently will be sent for quantitative analysis, as well. Patient has been made aware of this policy and agrees to abide by our urine testing policy. 04/16/2024 snf (current) use of 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 (ICD-10 - Z79.891) 04/16/2024 Other Gabriel Engel am scribing for Ad Cui. Ad Engel, personally performed the services described in this documentation , as scribed by Gabriel Garcia, and it is both accurate and complete. 10/08/2024 Other RECOMMEND THERAPEUTIC LUMBAR EPIDURAL STEROID INJECTION, levels L3-4 The patient reports overall 50% improvement in function and decrease in pain for greater than one month from previous diagnostic MIRIAM. The patient also reports improvement in tolerance to activities which generally cause pain. Based on the results of previous diagnostic MIRIAM, a therapeutic MIRIAM is recommended. Expectation from a successful therapeutic epidural steroid injection is at least 50-70% relief of pain from baseline and evidence of improved function for at least six to eight weeks after delivery. The goal of epidural steroid injections is to reduce pain and inflammation, restoring range of motion and, thereby, facilitating progress in more active treatment programs, and avoiding surgery. The procedure and risks were discussed with the patient including but not limited to infection, bleeding, neurological complications, side effects from medications, no change in pain, worsening of pain, or even . We also discussed conservative options, surgical options, and medical management with patient as well. The patient indicates understanding and wishes to proceed with the recommended treatment approach. The patient was given written information about the procedure and all questions were answered. Linda Engel NCMA, am scribing for Dr. Ad Cui. Dr. Ad Engel, personally performed the services described in this documentation, as scribed by MARY CARMEN Santos , and it is both accurate and complete. 03/04/2025 Other Michelle Engel am scribing for Dr. Ad Cui. Dr. Ad Engel, personally performed the services described in this documentation, as scribed by Michelle Lozano, and it is both accurate and complete. Plan Of Treatment Future Test Test Name Order Date Epidural, Lumbar/Sacral (Caudal), w/ mahamed ging guidance - [id number] 03/05/2025 Next Appt Details Provider Name:Ad Cui, 05/06/2025 09:20:00 AM, [address] [place], [address], Insurance Providers Payer Name Payer Address Payer Phone Subscriber Number Group Number Insured Name Patient Relationship to Insured Coverage Start Date Coverage End Date [facility] Medicare Advantage PPO [address] [address] [place] [address] [id number] Bobbi Fritz Self - patient is the insured [place] [address] [place] [address] [id number] Bobbi Fritz Self - patient is the insured Medical (General) History Medical History History ICD Code Swelling of multiple joints Surgical History Surgery Date(Month/Year) Toe surgery Hysterectomy Neck surgery gastric sleeve
[2025-03-24 07:54] VITALS: BP 116/76; PULSE 61; RESP 18; TEMP 36.9; O2SAT 95
[2025-03-24] MEDS: APIXABAN 2.5 MG TABLET PO (09:03)
--- NOTE | 2025-03-24 09:07 | PC.NURSE ---
THIS RN WAS INFORMED BY PT AND THE ASSOCIATE PROFESSOR OF THEATRE THAT THE PT DID NOT TAKE HER 0500 CALCIUM PILL BECAUSE IT WAS TOO BIG . THE BOAT OUTFITTER SHOWED ME THE PILL AND WE DISPOSED OF THE MEDICATION. THIS RN WILL EDUCATE THE PT TO INFORM STAFF INSTEAD OF HIDING MEDICATION IN THE BED.
--- NOTE | 2025-03-24 09:17 | PC.CHAP ---
Pastoral Care Encounter/Spiritual Assessment Type of Contact [] Declined sheet rock installation helper visit [] Patient/Family/Request visit [] Outpatient visit [] Follow-up visit [] Physician referral [] Code/Alert [x] Routine visit [] Staff referral [] Actively dying [] Patient sleeping [] Family support [] [] Out of room [] Palliative care [] [] Receiving care in room [] Pre-surgical visit [] Trauma [] Long length of stay [] ICU visit [] Other: Relational/Emotional Strength [x] Patient feels connected with others/family/visitors/staff [] Distress [] Loneliness/isolation [] Abandonment Spirituality of Patient [x] Person of Lucero [] Attends Sabianist of their [place]ero [x] Believes in Prayer [] Reads Bible or Jain materials [] There are Spiritual issues to be addressed Water Reuse Program Manager Interventions [x] Prayer [x] Active listening [] Non-anxious presence [x] Spiritual/emotional support [] Crisis/trauma care [] Spiritual counseling [] Bereavement support [] Provided bereavement packet [] Provided Bible/devotional materials [] Provided toy/stuffed animal, coloring book to patient or family member [] Provided Communion [] Anointing/[place] [] Salvation [x] Completed spiritual assessment [] Other: Impact on Illness or Injury [] Angry [] Fearful [] Anxious [] Often cries [] Exhaustion [] Unable to work [] Unable to attend muslim [] Unable to walk/stand [] Unable to read [] Unable to drive [] Unable to eat/drink [] Unable to sleep [] Unable to be with family [] Patient intubated [] Other: Summary Time spent with patient 5 min
[2025-03-24 11:34] VITALS: BP 142/75; PULSE 75; RESP 16; TEMP 36.8; O2SAT 95
--- NOTE | 2025-03-24 12:10 | P.PN_ITS ---
Subjective 2 Subjective: patient was seen this morning, denies any pain complaints, sitting up to side of bed Vitals/I&O/Wt Last Vital Signs Temp 98.3 F 03/24/25 11:34 Pulse 75 03/24/25 11:34 Resp 16 03/24/25 11:34 BP 142/75 03/24/25 11:34 Pulse Ox 95 03/24/25 11:34 O2 Del Method Room Air 03/24/25 11:34 03/23/25 03/24/25 03/24/25 22:59 06:59 14:59 Intake Total 2106.667 / 2156.667 1150 / 3306.667 1196.667 / 1196.667 Output Total 525 / 525 2400 / 2400 Balance 1581.667 / 9767.898 8617 / 2781.667 -1203.333 / -1203.333 Weight last 48 hrs Weight 84.368 kg Weight 80.739 kg Physical Exam 2 Const: COMMON NORMALS: no acute distress and patient oriented x3 Resp: COMMON NORMALS: normal respiratory effort, No retractions, No use of accessory muscles and clear to auscultation bilaterally AUSCULTATION: clear to auscultation bilaterally Cardio: COMMON NORMALS: regular rate, regular rhythm, S1 normal heart sound present and S2 normal heart sound present RATE: regular rate RHYTHM: r egular rhythm HEART SOUNDS: S1 normal heart sound present and S2 normal heart sound present GI: COMMON NORMALS: Normal to inspection, nondistended, normoactive bowel sounds present and non-tender Extremity: COMMON NORMALS: no calf tenderness and no pedal edema Neuro: COMMON NORMALS: patient oriented x3 Psych: COMMON NORMALS: mental status grossly normal Urinary Catheter Management: [place] Latex: Cath Placed During This Visit: yes, but has since been removed by the nurse Reason for Continuing Indwelling Catheter: Decision to DC Catheter Urinary Catheter Date of Insertion: 03/23/25 Urinary Catheter Time of Insertion: 14:15 Date Urinary Catheter Removed: 03/24/25 Time Urinary Catheter Discontinued: 08:45 Data 03/24/25 05:09 03/24/25 05:09 A&P Assessment and plan 1. Bipolar I disorder, most recent episode mixed, severe without psychotic features: Plan: - Resume home lamotrigine, lithium, Geodon, trazodone, sertraline - Pain control and anticoagulation as per orthopedic team PDMP PDMP Reviewed: Not Reviewed Attestations 2 Medical Necessity Statement*: patient will be discharged Diagnoses Bipolar I disorder, most recent episode mixed, severe without psychotic features F31.63
--- NOTE | 2025-03-24 13:01 | P.DS_ITS ---
Discharge Providers Date of Admission: 03/23/25 18:00 Date of Discharge: March 24, 2025 Attending Provider at Admission: Yang Mattson DO Attending Provider at Discharge: Yang Mattson DO Consults: Dr. Lyons?hospitalist Primary Care Provider: Ro Finney DO Diagnoses at Discharge Discharge Diagnosis 1. Status post total right knee replacement: 2. Bipolar I disorder, most recent episode mixed, severe without psychotic features: Reason for Visit Reason for Visit: RT KNEE DJD Brief History: Status post right total knee arthroplasty?Francisco robotic assisted Hospital Course Hospital Course Patient presented to the preoperative holding area with plan for right total knee arthroplasty after patient has been worked up in the outpatient setting for failed conservative treatment of [right] knee degenerative joint disease. Once cleared by anesthesia for surgery patient subsequently was taken back to the operative suite underwent anesthesia per anesthesia department and then subsequently underwent a [right] total knee arthroplasty. Procedure was performed without any complications patient was taken to PACU in stable condition patient recovered well in PACU and then was admitted to the floor postoperatively internal medicine was consulted and on board for medical management and assistance with care. Patient received appropriate PT/OT, postoperative antibiotics, postoperative TXA, pain control, postoperative DVT prophylaxis. Elevation and ice. Patient encouraged for knee range of motion allowed weightbearing as tolerated to the operative lower extremity. Dressing was changed as needed, labs were monitored daily. Patient recovered well postoperatively and worked well and progressed well with therapy. It was determined on postoperative day [1] the patient was stable for discharge from an orthopedic standpoint and medicine. Patient was comfortable with discharge and plan was discharged home. Patient received appropriate discharge instructions as well as pain medication and DVT prophylaxis postoperatively. Given appropriate instructions for dressing management. Patient will follow-up with Dr. Mattson/orthopedics in the office in 2 weeks. All questions answered. Understand if there is any issues questions or concerns and contact the office. Physical Exam Narrative: Right knee examination: Dressing on in place, clean dry and intact. No evidence of saturation. Patient has normal postoperative swelling and tenderness to palpation to the knee. Compartments are soft compressible,'s calf soft and nontender. Sensations intact to light touch distally. Distal pulses are palpable. Patient is able to wiggle toes as well as plantarflex and dorsiflex ankle. Urinary Catheter Management: [place] Latex: Cath Placed During This Visit: yes, but has since been removed by the nurse Reason for Continuing Indwelling Catheter: Decision to DC Catheter Urinary Catheter Date of Insertion: 03/23/25 Urinary Catheter Time of Insertion: 14:15 Date Urinary Catheter Removed: 03/24/25 Time Urinary Catheter Discontinued: 08:45 Discharge Data Studies Completed and Pending Completed Studies During Hospitalization Category Date Time Status XR knee RT 1-2V [id number] Routine Exams 03/23/25 11:05 Completed Pending at discharge Category Date Time Status Antibody Identification Routine Lab 03/23/25 09:50 Results Antigen Typing Patient Routine Lab 03/23/25 09:50 Results Basic Metabolic Panel AM LABS Lab 03/25/25 04:00 Ordered Basic Metabolic Panel AM LABS Lab 03/26/25 04:00 Ordered Complete Blood Count w/Auto AM LABS Lab 03/25/25 04:00 Ordered Complete Blood Count w/Auto AM LABS Lab 03/26/25 04:00 Ordered Leukocyte Reduced RBC Routine Lab 03/23/25 09:50 Results Type and Screen Routine Lab 03/23/25 09:50 Results Radiology Impressions Knee X-Ray 03/23/25 11:05 IMPRESSION: Status post total right knee arthroplasty with normal anatomic alignment and expected postoperative changes. Laboratory Results WBC 9.64 10^3/uL (3.29-11.43) 03/24/25 05:09 RBC 3.62 10^6/uL (3.85-5.65) L 03/24/25 05:09 Hgb 10.30 g/dL (11.27-16.99) L 03/24/25 05:09 Hct 32.7 % (36-47) L 03/24/25 05:09 MCV 90.3 fl (85-98) 03/24/25 05:09 MCH 28.5 pg (27-33) 03/24/25 05:09 MCHC 31.5 g/dL (30-55) 03/24/25 05:09 RDW 13.2 % (12.1-15.1) 03/24/25 05:09 Plt Count 221 10^3/cmm (157-399) 03/24/25 05:09 MPV 9.9 fL (7.4-10.4) 03/24/25 05:09 Neut % (Auto) 76.5 % 03/24/25 05:09 Lymph % (Auto) 14.7 % 03/24/25 05:09 Rolette % (Auto) 6.3 % 03/24/25 05:09 Eos % (Auto) 1.8 % 03/24/25 05:09 Baso % (Auto) 0.4 % 03/24/25 05:09 Neut # (Auto) 7.37 10^3/uL (1.8-7.7) 03/24/25 05:09 Lymph # (Auto) 1.4 10^3/uL (0.8-4.8) 03/24/25 05:09 Rolette # (Auto) 0.6 10^3/uL (0.2-0.9) 03/24/25 05:09 Eos # (Auto) 0.2 10^3/uL (0.0-0.8) 03/24/25 05:09 Baso # (Auto) 0.0 10^3/uL (0.0-0.1) 03/24/25 05:09 Nucleated RBC % (auto) 0 % 03/24/25 05:09 Nucleated RBCs # 0.0 /100WBC 03/24/25 05:09 Sodium 140 mmol/L (136-145) 03/24/25 05:09 Potassium 4.0 mmol/L (3.5-5.1) 03/24/25 05:09 Chloride 111 mmol/L (98-107) H 03/24/25 05:09 Carbon Dioxide 22 mmol/L (22-29) 03/24/25 05:09 Anion Gap 11.0 (5-19) 03/24/25 05:09 BUN 9 mg/dL (8-23) 03/24/25 05:09 Creatinine 0.9 mg/dL (0.5-0.9) 03/24/25 05:09 GFR Calculation 63.2 mL/min (90-130) L 03/24/25 05:09 Glucose 106 mg/dL (65-115) 03/24/25 05:09 Calculated Osmolality 289 mOsm/kg (285-295) 03/24/25 05:09 Calcium 8.8 mg/dL (8.5-10.5) 03/24/25 05:09 Blood Type O Positive 03/23/25 09:50 Rho(D) Type Rh positive 03/23/25 09:50 Antibody Screen Positive 03/23/25 09:50 Antibody Identification Anti-Fya 03/23/25 09:50 Antigen Identification Fya Antigen - NEGATIVE 03/23/25 09:50 Crossmatch See Detail 03/23/25 09:50 Vitals Last Vital Signs Temp 98.3 F 03/24/25 11:34 Pulse 75 03/24/25 11:34 Resp 16 03/24/25 11:34 BP 142/75 03/24/25 11:34 Pulse Ox 95 03/24/25 11:34 O2 Del Method Room Air 03/24/25 11:34 Discharge Plan Discharge Patient Disposition: Home Health Service Condition: Stable Prescriptions: New Eliquis 2.5 mg tablet 2.5 mg PO BID 14 Days Qty: 28 0RF calcium carbonate-vitamin D3 [Calcium 600 + D(3)] 600 mg-10 mcg (400 unit) tablet 1 tab PO DAILY 30 Days Qty: 30 0RF oxycodone 5 mg tablet 5 mg PO Q6H PRN (Reason: pain postop) 7 Days Qty: 28 0RF clindamycin HCl [Cleocin HCl] 150 mg capsule 150 mg PO Q8H 7 Days Qty: 21 0RF Continued diclofenac sodium [Voltaren Arthritis Pain] 1 % gel 4 g topical QID Qty: 100 0RF Rx Instructions: apply to single knee sumatriptan succinate 25 mg tablet See Rx Instructions PO .COMPLEX Qty: 9 0RF Rx Instructions: take 1 tab at onset of headache; if no relief may repeat 1 tab after at least 2 hrs; max = 4 tabs/24 hr PO sertraline 25 mg tablet 25 mg PO .morning Qty: 90 2RF Rx Instructions: Take one tablet every morning hydroxyzine pamoate [Vistaril] 25 mg capsule 25 mg PO BID PRN (Reason: anxiety) Qty: 60 3RF Rx Instructions: May take one capsule twice per day as needed for anxiety lamotrigine [Lamictal] 200 mg tablet 200 mg PO .evening Qty: 90 2RF Rx Instructions: Take one tablet every evening lithium carbonate 300 mg capsule 300 mg PO BEDTIME Qty: 90 2RF Rx Instructions: Take one capsule at bedtime trazodone 100 mg tablet 200 mg PO .QHS PRN (Reason: sleep) Qty: 180 2RF Rx Instructions: Take one to two tablets at bedtime as needed for sleep ziprasidone HCl [Geodon] 40 mg capsule 40 mg PO .evening Qty: 90 1RF Rx Instructions: Take one capsule every evening with 500 calorie of food pantoprazole 40 mg tablet,delayed release (DR/EC) 40 mg PO BID Qty: 60 2RF Held meloxicam 15 mg tablet 15 mg PO DAILY Hold Instructions: Resume on 04/07/25. Rx Instructions: TAKE 1 TABLET BY MOUTH EVERY DAY hydrocodone-acetaminophen 7.5-325 mg tablet 1 tab PO TID Hold Instructions: Resume on 04/07/25. 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[employer] Negative OK for DC: Orthopedics Discharge Order = DC NOW: Discharge Order (Routine); Ordered 03/24/25 Ordered By: Yang Mattson Other Ambulatory Orders: DME: Walker (Order) Location: None Selected Ordered By: Yang Mattson Referrals: Yang Mattson DO [Physician, Orthopedics] - 04/07/25 3:30 pm Discharge Diet: Regular Discharge Activity: Limit activity as instructed and Use walker/crutches as instructed Patient Instructions: Clindamycin (By mouth), Oxycodone, Rapid Release (By mouth), Apixaban (By mouth), Acute Wound Care (DC), Total Knee Replacement (GEN), Opioid Safety, Post Anesthesia Care, Patient Portal & Mario Instructions Activity Restrictions/Additional Instructions: Total knee discharge instructions blossom Dressing--Keep dressing on and dry. After 3 days you can remove some of the dressing and shower. Cover dressing with Saran wrap prior to any showers to keep from getting wet. disconnect battery pack when showering. Blossom dressing will stay on until follow up appt in 2 weeks. The battery pack for the dressing will at 5-7 days. Battery pack can be removed and discarded once batteries . Patient may weight-bear as tolerate to the operative extremity Utilize walker as needed Encourage knee range of motion Ice and elevate as needed for pain and swelling Take pain medication as prescribed Take antinausea medication as needed Take antibiotic as prescribed Supplement with calcium vitamin D for bone health and healing Pain medication can cause constipation. take [id number] stool softeners and or MiraLAX. Take prescribed Eliquis twice daily for the next 14 days for blood clot prevention May supplement for pain with Tylenol [id number] as needed(1000 mg every 8 hours-do not exceed more than 3000mg in 24-hour period) No baths or soaks Follow-up in the orthopedic office in 2 weeks Contact the office for any questions or concerns Discharge Attestations Time Spent in Discharge Care*: less than 30 min Quality Metrics Clinical Quality Measures [ No reported AMI, CVA or VTE this stay] Coding Level of Care Code Acute Code for Chg Fwd Diagnoses Status post total right knee replacement Z96.651 Bipolar I disorder, most recent episode mixed, severe without psychotic features F31.63
[2025-03-24 15:53] VITALS: BP 141/76; PULSE 84; RESP 18; TEMP 37.4; O2SAT 95
[2025-03-24 16:23] VITALS: BP 141/76; PULSE 84; RESP 18; TEMP 37.4; O2SAT 95
== END 2025-03-24 16:26 | disposition home health service (06) ==
LOC: MEDSURG 20:56
PROVIDERS: Physician Assistant; Admitting Provider Student in an Organized Health Care Education/Training Program; PCP Family Medicine; Visit Provider Student in an Organized Health Care Education/Training Program
PROC: 8E0Y0CZ Robotic Assisted Procedure of Lower Extremity, Open Approach (ICD-10-PCS; CPT 27447; principal; 2025-03-23 14:00)
DX: M17.11 Unilateral primary osteoarthritis, right knee (principal); F31.63 Bipolar disorder, current episode mixed, severe, without psychotic features; K21.9 Gastro-esophageal reflux disease without esophagitis; E03.9 Hypothyroidism, unspecified; F43.12 Post-traumatic stress disorder, chronic; F17.210 Nicotine dependence, cigarettes, uncomplicated; F17.290 Nicotine dependence, other tobacco product, uncomplicated
CPT/HCPCS: 64447; 27447; 20985; 36415; 51702; 73560; 80048; 80503; 85025; 86850; 86870; 86900; 86902; 86920; 97116; 97161; 97165; A4216; C1713; C1776; G0378; J0131; J0169; J1885; J2250; J2405; J2704; J2795; J3010; J3373; J3490; J7030; J7120; J9999; L8699

== ENCOUNTER → 2025-04-07 15:24 | Outpatient (BNVA) | payer OTHER, MEDICAID, SELFPAY | PROVIDERS: Visit Provider Physician Assistant | DX: Z98.890 Other specified postprocedural states (principal); Z96.651 Presence of right artificial knee joint | CPT/HCPCS: 73560; 73565; 99024 ==

== ENCOUNTER → 2025-04-28 10:10 | Outpatient (BNVA) | payer OTHER, MEDICAID, SELFPAY | PROVIDERS: Visit Provider Physician Assistant | DX: Z98.890 Other specified postprocedural states (principal); Z96.651 Presence of right artificial knee joint | CPT/HCPCS: 73560; 73565; 99024 ==

== ENCOUNTER 2025-05-11 12:08 | Outpatient (RCR) | payer OTHER, MEDICAID, SELFPAY | END 2025-05-20 23:59 | disposition home or self-care (01) | LOC: SPT 12:08 | PROVIDERS: Visit Provider Physician Assistant | DX: Z47.1 Aftercare following joint replacement surgery (principal); Z96.651 Presence of right artificial knee joint | CPT/HCPCS: 97110; 97161 ==

== ENCOUNTER → 2025-05-19 15:33 | Outpatient (BNVA) | payer MEDICARE, MEDICAID, SELFPAY | PROVIDERS: Visit Provider Physician Assistant | DX: Z98.890 Other specified postprocedural states (principal); Z96.651 Presence of right artificial knee joint | CPT/HCPCS: 73560; 73565; 99024 ==